=== PATIENT | female | born 1985 | race Caucasian/White ===

== ENCOUNTER 2017-10-02 08:12 | Inpatient (IN) ==
[2017-10-02] MEDS ORDERED: Isovue-370 500 ML INFUS..BTL IV ONE (08:15)
[2017-10-02] MEDS ORDERED: *HR* FentaNYL (PF) 100 MCG/2 ML VIAL IVP ONE ×2 (08:18→10:22)
--- NOTE | 2017-10-02 08:18 | Emergency Department Note ---
Disposition Clinical Impression: IVDU (intravenous drug user), Septic embolism Cellulitis Qualifiers: Site of cellulitis: extremity Site of cellulitis of extremity: upper extremity Laterality: right Qualified Code(s): L03.113 - Cellulitis of right upper limb Disposition: Admitted As Inpatient Condition: Fair Time of Disposition: 11:29 General Adult HPI - General Chief complaint: ED Extremity Problem,Nontraumatic Stated complaint: Right Hand infection Time Seen by Provider: 10/02/17 08:14 - Related Data Home Medications Medication Instructions Recorded Confirmed ALPRAZolam [Xanax 1 MG Tablet] 1 mg PO QID 10/02/17 10/02/17 Gabapentin [Neurontin] 800 mg PO QID 10/02/17 10/02/17 Naproxen Sodium [Aleve] 220 mg PO DAILY PRN 10/02/17 10/02/17 Quetiapine Fumarate [SEROquel] 100 mg PO HS 10/02/17 10/02/17 Tizanidine HCl 2 mg PO TID 10/02/17 10/02/17 Allergies Allergy/AdvReac Type Severity Reaction Status Date / Time Cefaclor [From [facility]] Allergy Hives Verified 10/02/17 08:52 Past Medical History - Past Medical History Medical history: Reports: hepatitis, migraine Surgical history: Reports: non-contributory Psychiatric history: Reports: no psych history CORROSION CONTROL SPECIALIST history: Reports: no CORROSION CONTROL SPECIALIST history - Social History Smoking Status: Current every day smoker Smokeless Tobacco Status: No Alcohol use: Reports: none Drug use: Reports: marijuana Course Vital Signs Temperature 98.1 F 10/02/17 08:14 Pulse Rate 137 10/02/17 08:14 Respiratory Rate 18 10/02/17 08:14 Blood Pressure 130/89 10/02/17 08:14 O2 Sat by Pulse Oximetry 97 10/02/17 08:14 Temperature 98.1 F 10/02/17 08:14 Pulse Rate 137 10/02/17 08:14 Respiratory Rate 18 10/02/17 08:14 Blood Pressure 130/89 10/02/17 08:14 O2 Sat by Pulse Oximetry 97 10/02/17 08:14 Oxygen Delivery Oxygen Delivery Room Air Medical Decision Making - Lab Data Lab results reviewed: Yes I reviewed the patient's lab results. Result diagrams: 10/02/17 09:31 10/02/17 08:14 Lab Results 10/02/17 10/02/17 10/02/17 Range/Units 08:14 08:15 08:41 WBC (4.3-11.1) K/mcL RBC (3.82-4.97) M/mcL Hgb (11.5-15.4) g/dL Hct (35.3-44.9) % MCV (83.0-100.0) fL MCH (28.0-33.3) pg MCHC (31.6-35.5) g/dL RDW (11.5-14.5) % Plt Count (140-400) K/mcL MPV (9.4-12.4) fL Immature Gran % (0-4) % Seg Neutrophils % % Lymphocytes % % Monocytes % % Eosinophils % % Basophils % % Neutrophils # (1.6-8.9) K/mcL Lymphocytes # (0.6-4.6) K/mcL Monocytes # (0.0-1.3) K/mcL Eosinophils # (0.0-0.6) K/mcL Basophils # (0.0-0.2) K/mcL PT (9.4-12.1) Seconds INR Sodium 132 L (136-145) mEq/L Potassium 4.1 (3.5-5.1) mEq/L Chloride 102 (98-107) mEq/L Carbon Dioxide 19 L (23-29) mEq/L BUN 11 (6-20) mg/dL Creatinine 0.56 L (0.60-1.20) mg/dL Est GFR ( Amer) > 60 (> 60) Est GFR (Non-Af Amer) > 60 (> 60) BUN/Creatinine Ratio 20 (6-26) Glucose 115 H (70-105) mg/dL Calculated Osmolality 274 L (280-300) Lactic Acid 2.4 H (0.5-2.2) mmol/L Calcium 9.4 (8.6-10.3) mg/dL Total Bilirubin 1.1 H (0.3-1.0) mg/dL AST 22 (13-39) Units/L ALT 38 (7-52) Units/L Alkaline Phosphatase 78 (34-104) Units/L Serum Total Protein 7.2 (6.4-8.9) g/dL Albumin 3.5 (3.5-5.7) g/dL Globulin 3.7 H (2.4-3.5) g/dL Albumin/Globulin Ratio 0.9 L (1.1-2.2) Serum , Qual Negative (Negative) Specimen Rejected 10/02/17 10/02/17 10/02/17 Range/Units 08:41 08:41 09:31 WBC 18.7 H (4.3-11.1) K/mcL RBC 4.47 (3.82-4.97) M/mcL Hgb 12.8 (11.5-15.4) g/dL Hct 36.2 (35.3-44.9) % MCV 81.0 L (83.0-100.0) fL MCH 28.6 (28.0-33.3) pg MCHC 35.4 (31.6-35.5) g/dL RDW 14.6 H (11.5-14.5) % Plt Count 184 (140-400) K/mcL MPV 10.2 (9.4-12.4) fL Immature Gran % 2.6 (0-4) % Seg Neutrophils % 86.1 % Lymphocytes % 4.6 % Monocytes % 6.4 % Eosinophils % 0.1 % Basophils % 0.2 % Neutrophils # 16.1 H (1.6-8.9) K/mcL Lymphocytes # 0.9 (0.6-4.6) K/mcL Monocytes # 1.2 (0.0-1.3) K/mcL Eosinophils # 0.0 (0.0-0.6) K/mcL Basophils # 0.0 (0.0-0.2) K/mcL PT 16.6 H (9.4-12.1) Seconds INR 1.5 Sodium (136-145) mEq/L Potassium (3.5-5.1) mEq/L Chloride (98-107) mEq/L Carbon Dioxide (23-29) mEq/L BUN (6-20) mg/dL Creatinine (0.60-1.20) mg/dL Est GFR ( Amer) (> 60) Est GFR (Non-Af Amer) (> 60) BUN/Creatinine Ratio (6-26) Glucose (70-105) mg/dL Calculated Osmolality (280-300) Lactic Acid (0.5-2.2) mmol/L Calcium (8.6-10.3) mg/dL Total Bilirubin (0.3-1.0) mg/dL AST (13-39) Units/L ALT (7-52) Units/L Alkaline Phosphatase (34-104) Units/L Serum Total Protein (6.4-8.9) g/dL Albumin (3.5-5.7) g/dL Globulin (2.4-3.5) g/dL Albumin/Globulin Ratio (1.1-2.2) Serum , Qual (Negative) Specimen Rejected Clotted - Radiology Data Radiology results reviewed: Yes I reviewed the patient's radiology results. Critical Care Time Critical Care Time: Yes Total Critical Care Time: 30 Attestation: The high probability of a clinically significant, sudden or life threatening deterioration of the [] system(s) required my full and direct attention, intervention and personal management. The aggregate critical care time was [] minutes. This time is in addition to time spent performing reported procedures but includes the following: [] Data Review and interpretation [] Patient assessment and monitoring of vital signs [] Documentation [] Medication orders and management Attestation Statement - Attestation Attestation: For this encounter, I have reviewed the DOG CATCHER or PA documentation, treatment plan, and medical decision making; and I have had face to face time with this patient. [id number] time provided Patient presents by EMS. She has evidence of cellulitis to her right hand secondary to IV drug use. She is anxious and tachycardic. She complains of chest pain and shortness of breath since last night. She also complains of low back pain which is both acute and chronic. Right hand x-ray, CT chest, MRI lumbar spine ordered. 11:27: Patient has septic emboli. We will admit 11:30: Dr. Weathers, hospitalist, recommends urine drug screen, serum alcohol level , infectious disease consult. I did discuss this case with who is agreeable to evaluate patient
--- NOTE | 2017-10-02 08:22 | Emergency Department Note ---
Disposition Clinical Impression: Cellulitis Qualifiers: Site of cellulitis: extremity Site of cellulitis of extremity: upper extremity Laterality: right Qualified Code(s): L03.113 - Cellulitis of right upper limb Disposition: Still a Patient Condition: Undetermined Referrals: NONE,PCP [Primary Care Provider] - Forms: ED Satisfaction Letter Time of Disposition: 10:53 General Adult HPI - General Chief complaint: ED Extremity Problem,Nontraumatic Stated complaint: Right Hand infection Time Seen by Provider: 10/02/17 08:14 Source: patient, EMS Limitations: no limitations Nursing Notes Reviewed: Yes Vital Signs Reviewed: Yes - History of Present Illness HPI Narrative: 32-year-old female presents by EMS for evaluation of worsening right hand cellulitis for the past 3 days. She admits to being a frequent heroin user and states that she injects in the dorsum of the right hand. She also complains of worsening diffuse chest pain since last night, shortness of breath, and worsening low back pain. She denies any other recreational drug use aside from the occasional methamphetamine usage however states that the last time she used methamphetamine was 2 weeks ago. Onset (ago): day(s) (3) Location: chest, back, right, upper extremity Pain Scale: 10 Quality: sharp Consistency: Worsening Improves with: nothing Worsens with: other (Deep breathing) Treatments Prior to Arrival: none - Related Data Home Medications Medication Instructions Recorded Confirmed ALPRAZolam [Xanax 1 MG Tablet] 1 mg PO QID 10/02/17 10/02/17 Gabapentin [Neurontin] 800 mg PO QID 10/02/17 10/02/17 Naproxen Sodium [Aleve] 220 mg PO DAILY PRN 10/02/17 10/02/17 Quetiapine Fumarate [SEROquel] 100 mg PO HS 10/02/17 10/02/17 Tizanidine HCl 2 mg PO TID 10/02/17 10/02/17 Allergies Allergy/AdvReac Type Severity Reaction Status Date / Time [facility] [From [facility]] Allergy Hives Verified 10/02/17 08:52 All systems ED: reviewed and negative except as stated. Constitutional: Denies: fever, chills, weakness, weight change Eyes: Denies: eye pain, eye discharge, vision change ENT ED: Denies: ear pain, throat pain, dental pain, hearing loss, epistaxis, congestion, dysphagia Cardiovascular: Reports: chest pain. Denies: palpitations, dyspnea on exertion , edema, syncope Respiratory: Reports: as per HPI, dyspnea. Denies: cough, wheezes, hemoptysis, stridor Gastrointestinal: Denies: abdominal pain, nausea, vomiting, diarrhea, constipation, hematemesis, melena, hematochezia Genitourinary: Denies: dysuria, frequency, hematuria, discharge Musculoskeletal: Reports: as per HPI, back pain, other (Right hand pain, redness , swelling). Denies: neck pain, arthralgia, myalgia Integumentary: Denies: rash, abrasion, lesions Neurological: Denies: headache, weakness, numbness, paresthesias, confusion, abnormal gait, vertigo Psychiatric: Denies: anxiety, depression, suicidal thoughts, homicidal thoughts , auditory hallucinations, visual hallucinations Endocrine: Denies: fatigue Hematological/Lymphatic: Denies: easy bleeding, easy bruising Allergic/Immunologic: Denies: facial swelling, urticaria Past Medical History - Past Medical History Attestation: Yes The following information was validated with the patient. Source: patient, nursing notes reviewed Medical history: Reports: hepatitis, migraine Surgical history: Reports: non-contributory Psychiatric history: Reports: no psych history SILO WORKER history: Reports: no SILO WORKER history - Social History Smoking Status: Current every day smoker Smokeless Tobacco Status: No Alcohol use: Reports: none Drug use: Reports: marijuana Physical Exam - General Limitations: no limitations General appearance: alert, in no apparent distress - Head Head exam: atraumatic, normocephalic, normal inspection - Eye Eye exam: Present: normal appearance, PERRL, EOMI. Absent: nystagmus - ENT ENT exam: mucous membranes moist - Neck Neck exam: Present: normal inspection, full ROM, trachea midline - Chest Chest inspection: Present: normal inspection, symmetric chest wall rise - Respiratory Respiratory exam: Present: normal lung sounds bilaterally, other (Tachypnea). Absent: respiratory distress, wheezes, stridor, accessory muscle use, prolonged expiratory phase - Cardiovascular Cardiovascular exam: Present: normal rhythm, tachycardia - Abdominal Exam Abdominal exam: Present: soft, Non-Tender, normal bowel sounds - Expanded Upper Extremity Exam Arm exam: Present: normal inspection, full ROM Elbow exam: Present: normal inspection, full ROM Forearm/Wrist exam: Present: normal inspection, full ROM Hand exam: Present: tenderness, swelling (Moderate edema noted right hand diffusely), erythema (Dorsum of right hand several areas induration without substantial fluctuance.), other (Track corley noted to the dorsal aspect of the right hand). Absent: abrasion, laceration, ecchymosis, deformity Neuromotor exam: Normal: wrist extension, thumb opposition, fingers 2-5 abduction Neurosensory exam: Normal: radial nerve, ulnar nerve, 2-point discrimination Hand tendon exam: Normal: flexor digitorum profundus (location), extensor tendon (location) Vascular exam: Normal: capillary refill, radial pulse, ulnar pulse - Back Exam Back exam: Present: tenderness, vertebral tenderness (Lumbar spine). Absent: full ROM (Range of motion limited by pain, lumbar spine) - Neurological Exam Neurological exam: Present: alert, oriented X3 - Psychiatric Psychiatric exam: Present: normal affect, normal mood - Skin Skin exam: Present: warm, dry, intact Course Vital Signs Temperature 98.1 F 10/02/17 08:14 Pulse Rate 137 10/02/17 08:14 Respiratory Rate 18 10/02/17 08:14 Blood Pressure 130/89 10/02/17 08:14 O2 Sat by Pulse Oximetry 97 10/02/17 08:14 Temperature 98.1 F 10/02/17 08:14 Pulse Rate 137 10/02/17 08:14 Respiratory Rate 18 10/02/17 08:14 Blood Pressure 130/89 10/02/17 08:14 O2 Sat by Pulse Oximetry 97 10/02/17 08:14 Oxygen Delivery Oxygen Delivery Room Air Medical Decision Making - Medical Records Medical records reviewed: Yes I reviewed the patient's medical records. - Lab Data Lab results reviewed: Yes I reviewed the patient's lab results. Result diagrams: 10/02/17 09:31 10/02/17 08:14 Lab Results 10/02/17 10/02/17 10/02/17 Range/Units 08:14 08:15 08:41 WBC (4.3-11.1) K/mcL RBC (3.82-4.97) M/mcL Hgb (11.5-15.4) g/dL Hct (35.3-44.9) % MCV (83.0-100.0) fL MCH (28.0-33.3) pg MCHC (31.6-35.5) g/dL RDW (11.5-14.5) % Plt Count (140-400) K/mcL MPV (9.4-12.4) fL Immature Gran % (0-4) % Seg Neutrophils % % Lymphocytes % % Monocytes % % Eosinophils % % Basophils % % Neutrophils # (1.6-8.9) K/mcL Lymphocytes # (0.6-4.6) K/mcL Monocytes # (0.0-1.3) K/mcL Eosinophils # (0.0-0.6) K/mcL Basophils # (0.0-0.2) K/mcL PT (9.4-12.1) Seconds INR Sodium 132 L (136-145) mEq/L Potassium 4.1 (3.5-5.1) mEq/L Chloride 102 (98-107) mEq/L Carbon Dioxide 19 L (23-29) mEq/L BUN 11 (6-20) mg/dL Creatinine 0.56 L (0.60-1.20) mg/dL Est GFR ( Amer) > 60 (> 60) Est GFR (Non-Af Amer) > 60 (> 60) BUN/Creatinine Ratio 20 (6-26) Glucose 115 H (70-105) mg/dL Calculated Osmolality 274 L (280-300) Lactic Acid 2.4 H (0.5-2.2) mmol/L Calcium 9.4 (8.6-10.3) mg/dL Total Bilirubin 1.1 H (0.3-1.0) mg/dL AST 22 (13-39) Units/L ALT 38 (7-52) Units/L Alkaline Phosphatase 78 (34-104) Units/L Serum Total Protein 7.2 (6.4-8.9) g/dL Albumin 3.5 (3.5-5.7) g/dL Globulin 3.7 H (2.4-3.5) g/dL Albumin/Globulin Ratio 0.9 L (1.1-2.2) Serum , Qual Negative (Negative) Specimen Rejected 10/02/17 10/02/17 10/02/17 Range/Units 08:41 08:41 09:31 WBC 18.7 H (4.3-11.1) K/mcL RBC 4.47 (3.82-4.97) M/mcL Hgb 12.8 (11.5-15.4) g/dL Hct 36.2 (35.3-44.9) % MCV 81.0 L (83.0-100.0) fL MCH 28.6 (28.0-33.3) pg MCHC 35.4 (31.6-35.5) g/dL RDW 14.6 H (11.5-14.5) % Plt Count 184 (140-400) K/mcL MPV 10.2 (9.4-12.4) fL Immature Gran % 2.6 (0-4) % Seg Neutrophils % 86.1 % Lymphocytes % 4.6 % Monocytes % 6.4 % Eosinophils % 0.1 % Basophils % 0.2 % Neutrophils # 16.1 H (1.6-8.9) K/mcL Lymphocytes # 0.9 (0.6-4.6) K/mcL Monocytes # 1.2 (0.0-1.3) K/mcL Eosinophils # 0.0 (0.0-0.6) K/mcL Basophils # 0.0 (0.0-0.2) K/mcL PT 16.6 H (9.4-12.1) Seconds INR 1.5 Sodium (136-145) mEq/L Potassium (3.5-5.1) mEq/L Chloride (98-107) mEq/L Carbon Dioxide (23-29) mEq/L BUN (6-20) mg/dL Creatinine (0.60-1.20) mg/dL Est GFR ( Amer) (> 60) Est GFR (Non-Af Amer) (> 60) BUN/Creatinine Ratio (6-26) Glucose (70-105) mg/dL Calculated Osmolality (280-300) Lactic Acid (0.5-2.2) mmol/L Calcium (8.6-10.3) mg/dL Total Bilirubin (0.3-1.0) mg/dL AST (13-39) Units/L ALT (7-52) Units/L Alkaline Phosphatase (34-104) Units/L Serum Total Protein (6.4-8.9) g/dL Albumin (3.5-5.7) g/dL Globulin (2.4-3.5) g/dL Albumin/Globulin Ratio (1.1-2.2) Serum , Qual (Negative) Specimen Rejected Clotted - Radiology Data Radiology results reviewed: Yes I reviewed the patient's radiology results. - EKG Data EKG #1 EKG attestation: Yes I reviewed and interpreted this EKG. EKG results narrative: EKG reviewed by Dr. Acevedo. EKG shows a sinus tachycardia with short LA interval. Ventricular rate 134, QRS duration 93, LA interval 116, QT/QTc interval 331/410. No ectopy noted. No STEMI. S.B.ACorby. - S.Siva.Dudley Situation: Demographics, MOA Background: Presenting Complaint, Relevant PMH, Meds, & Allergies Assessment: Vital Signs, Course and respsone to treatment, Exam Concerns, Patient/Family Expectation, Pertinant Lab Results, Outstanding Labs Recommendation: Barrier(s) to disposition, Recommendation based on pending studies, treatments, or consults S.B.A.Koko Report Given to: Dr. Curtis Heath Repor Time: 10:53
[2017-10-02 09:05] LABS: INR 1.5; Prothrombin Time 16.6 Seconds (9.4-12.1)
[2017-10-02] MEDS: *HR* LORazepam 2 MG/ML VIAL IVP ONE ×2 (09:06→13:16)
[2017-10-02 09:12] LABS: Alanine Aminotransferase 38 Units/L (7-52); Albumin 3.5 g/dL (3.5-5.7); Albumin/Globulin Ratio 0.9 (1.1-2.2); Alkaline Phosphatase 78 Units/L (34-104); Aspartate Amino Transferase 22 Units/L (13-39); BUN/Creatinine Ratio 20 (6-26); Bilirubin,Total 1.1 mg/dL (0.3-1.0); Blood Urea Nitrogen 11 mg/dL (6-20); Calcium 9.4 mg/dL (8.6-10.3); Carbon Dioxide 19 mEq/L (23-29); Chloride 102 mEq/L (98-107); Globulin 3.7 g/dL (2.4-3.5); Glucose 115 mg/dL (70-105); Osmolality,Calculated 274 (280-300); Potassium 4.1 mEq/L (3.5-5.1); Sodium 132 mEq/L (136-145); Total Protein 7.2 g/dL (6.4-8.9); eGFR For African Americans > 60 (> 60); eGFR For Non-African Americans > 60 (> 60)
[2017-10-02 09:41] LABS: Basophils % 0.2 %; Eosinophils % 0.1 %; Hematocrit 36.2 % (35.3-44.9); Hemoglobin 12.8 g/dL (11.5-15.4); Immature Granulocytes % 2.6 % (0-4); Lymphocytes # 0.9 K/mcL (0.6-4.6); Lymphocytes % 4.6 %; Mean Corpuscular HGB Conc 35.4 g/dL (31.6-35.5); Mean Corpuscular Hemoglobin 28.6 pg (28.0-33.3); Mean Platelet Volume 10.2 fL (9.4-12.4); Monocytes # 1.2 K/mcL (0.0-1.3); Monocytes % 6.4 %; Neutrophils # 16.1 K/mcL (1.6-8.9); Platelet Count 184 K/mcL (140-400); Red Blood Count 4.47 M/mcL (3.82-4.97); Red Cell Distribution Width 14.6 % (11.5-14.5); Segmented Neutrophils % 86.1 %
[2017-10-02] MEDS ORDERED: *HR* FentaNYL (PF) 100 MCG/2 ML VIAL ONE (10:24)
[2017-10-02] MEDS: 0.9 % Sodium Chloride 1,000 ML IVC SCH ×4 (10:30→14:25)
[2017-10-02] MEDS ORDERED: *HR* LORazepam 2 MG/ML VIAL IVP ONE (10:53)
[2017-10-02] MEDS ORDERED: *HR* LORazepam 2 MG/ML VIAL ONE (10:55)
[2017-10-02] MEDS ORDERED: Levofloxacin 500 MG/100 ML 500 MG/100 ML BAG IVPB ONE (11:32)
[2017-10-02 12:02] LABS: Ethanol < 10 mg/dL (Less than 10)
--- NOTE | 2017-10-02 12:44 | Internal Med History&Physical ---
<Dionna Prather - Last Filed: 10/02/17 14:17> Date of Encounter: 10/02/17 Time of Encounter: 12:34 Internal Medicine - H&P: HPI Chief complaint: Right hand cellulitis Admitted From: Home Plans for Post Hospital Care: Transfer Inp Rehab Fac (Patient indicated that she has information regarding a rehab facility) History of present illness: Ms. Vargas is a 32 year old female who has hx of IVD use. She indicated that she is a iv heroin user and uses daily. She denied alcohol use and the She noticed that her hand was swelling about 3 days ago but continued to use . She states the pain became unbearable so she came in. Right hand noted to be severely edematous with erythema and very tight. She is currently afebrile, however she has a wbc of 18.7 and a lactacte of 2.4. The ED determined the patient to have septic emboli. A CT scan showed no pulmonary embolus. Infection disease consulted in the ED and will see the patient. EKG showed ST with a short NM interval, the rate was 134. Hand xray showed. Spoke with cardiology and recommended the patient have a TTE to look for vegetation, concern is endocarditis d/t IVDU. No heparin drip will be ordered at this time. Cardiology will not follow at this time. Past Med Surg Social Fam HX - Past Medical History Medical history: hepatitis, migraine Psychiatric history: no psych history - Past Surgical History Surgical History: non-contributory - Social History Smoking Status: Current every day smoker Smokeless Tobacco Status: No Alcohol use: none Drug use: marijuana Internal Medicine - H&P: Meds ALPRAZolam [Xanax 1 MG Tablet] 1 mg PO QID 10/02/17 [History] Gabapentin [Neurontin] 800 mg PO QID 10/02/17 [History] Naproxen Sodium [Aleve] 220 mg PO DAILY PRN 10/02/17 [History] Quetiapine Fumarate [SEROquel] 100 mg PO HS 10/02/17 [History] Tizanidine HCl 2 mg PO TID 10/02/17 [History] 3 Allergy/AdvReac Type Severity Reaction Status Date / Time Cefaclor [From [facility]] Allergy Hives Verified 10/02/17 08:52 All Systems PM: A 10-system review of systems was performed and is negative for pertinent findings except as documented above in the HPI. - Constitutional Constitutional: no chills, no fever(s), no night sweats - EENT Eyes: no change in vision, no discharge, no pain, no photophobia Ears: no ear discharge, no ear pain, no tinnitus Nose, mouth and throat: no dysphagia, no nasal discharge, no neck pain, no sore throat - Cardiovascular Cardiovascular ROS IM: no chest pain, no diaphoresis, no dyspnea, no lightheadedness, no palpitations, no syncope - Respiratory Respiratory: no cough, no dyspnea, no wheezing, no excessive phlegm production - Gastrointestinal Gastrointestinal: no abdominal pain, no diarrhea, no hematemesis, no hematochezia, no melena, no nausea, no vomiting - Genitourinary Genitourinary: no change in urinary stream, no dysuria, no flank pain, no hematuria - Musculoskeletal Musculoskeletal ROS IM: no numbness, no tingling - Integumentary Integumentary IM: erythema (Right hand with erythema and edema), new lesions, unusual bruising (Ther patient is a IVDU, she has multiple bruised areas to skin areas to ), no rash - Neurological Neurological ROS: no confusion, no convulsions, no focal weakness, no numbness, no tingling, no tremor(s) - Hematologic/Lymphatic Hematologic/Lymphatic: no easy bruising - Constitutional Vitals: Temp Pulse Resp BP Pulse Ox 97.7 F 142 16 123/81 99 10/02/17 12:04 10/02/17 12:04 10/02/17 12:04 10/02/17 12:04 10/02/17 12:04 General appearance: Present: A&O X 3 - Head Head exam: Present: atraumatic, normocephalic - Eye Eye exam: Present: PERRL, conjuntiva pink, sclera anicteric Pupils: Present: PERRL - Neck Neck exam general surgery: Present: supple, trachea midline. Absent: lymphadenopathy - Respiratory Respiratory exam: Present: CTAB. Absent: accessory muscle use, rales, rhonchi, wheezes - Cardiovascular Cardiovascular exam: Present: +S1, +S2, tachycardia. Absent: diastolic murmur, gallop, rubs, systolic murmur - GI/Abdominal GI/Abdominal exam: Present: normal bowel sounds, soft, no peritoneal signs. Absent: distended, tenderness - Extremities Exam Extremities exam: Present: tenderness (Right hand with erythema and edema), warm , radial pulses palpable and symmetrical. Absent: calf tenderness, cyanotic, pedal edema - Neurological Exam Neurological exam: Present: CN II-XII intact, oriented X3, no focal deficits. Absent: pronater drift, facial droop, speech deficit - Skin Skin exam: Present: dry, intact Internal Med - H&P Results - Labs CBC & Chem 7: 10/02/17 09:31 10/02/17 08:14 - Assessment and plan (1) Septic embolism Current Visit: Yes Status: Acute Assessment and plan: The patient will be seen by ID and surgery for septic emboli and ?compartment syndrome. (2) Cellulitis Current Visit: Yes Status: Acute Assessment and plan: Right hand cellulitis. Vancomycin and levaquin started in the ED. Further antibiotic therapy will be initiated by ID. Qualifiers: Site of cellulitis: extremity Site of cellulitis of extremity: upper extremity Laterality: right Qualified Code(s): L03.113 - Cellulitis of right upper limb (3) Leukocytosis Current Visit: Yes Status: Acute Assessment and plan: The wbc count was 18.7, lactic acid is 2.4. Apparent source of infection is cellulitis right hand. ID on case and treating with vancomycin and levaquin. Qualifiers: Leukocytosis type: unspecified Qualified Code(s): D72.829 - Elevated white blood cell count, unspecified (4) IVDU (intravenous drug user) Current Visit: Yes Status: Acute Assessment and plan: The patient has 10 year hx of daily heroin use. She indicated that she has tried to get into a drug rehab in the past but was not able to go. Social service talked with the patient in the ED. - Time Spent With Patient Total time spent is greater than 50% in coordination of care (as documented) at patient's floor/unit and/or counseling patient: 25 - 35 minutes <Rowena Weathers - Last Filed: 10/02/17 14:40> Date of Encounter: 10/02/17 Internal Medicine - H&P: HPI History of present illness: Ms. Vargas is a 32 year old female Past Med Surg Social Fam HX - Family History Mother History Unknown: Yes Father History Unknown: Yes All Systems PM: A 10-system review of systems was performed and is negative for pertinent findings except as documented above in the HPI. - Constitutional Vitals: Temp Pulse Resp BP Pulse Ox 97.7 F 142 16 123/81 99 10/02/17 12:04 10/02/17 12:04 10/02/17 12:04 10/02/17 12:04 10/02/17 12:04 Internal Med - H&P Results - Labs CBC & Chem 7: 10/02/17 09:31 10/02/17 08:14 - Attending Attestation Examined the patient and review of the note. Patient is in sepsis most likely due to hand cellulitis with questionable compartment syndrome due to IV drug abuse. Concern of septic emboli therefore ID consulted for further management. Hand surgeon was also consulted. Continue pain management with IV fentanyl, Percocet, and NSAIDs. Consider dye range tender's consultation if needed. Vitals are stable at this time. - Time Spent With Patient Total time spent is greater than 50% in coordination of care (as documented) at patient's floor/unit and/or counseling patient:
--- NOTE | 2017-10-02 12:49 | Infectious Disease Consult ---
Date of Encounter: 10/02/17 Time of Encounter: 12:49 Assessment and Plan (1) Severe sepsis Status: Acute Assessment and plan: Secondary to cellulitis and likely bacteremia with septic emboli (2) Cellulitis Status: Acute Assessment and plan: Concern for possible septic arthritis versus necrotizing fasciitis. Repeat blood cultures 2 stat. Consult orthopedics: Have been consulted by the primary team and Dr. Salinas is aware of the patient Start vancomycin, levofloxacin and clindamycin for now Await orthopedic recommendation to see if the patient needs I&D Qualifiers: Site of cellulitis: extremity Site of cellulitis of extremity: upper extremity Laterality: right Qualified Code(s): L03.113 - Cellulitis of right upper limb (3) Septic embolism Status: Acute Assessment and plan: check RIP, urine legionella and pneumococcal antigen check PPD agree with vancomycin and levofloxacin for now (4) IVDU (intravenous drug user) Status: Acute Assessment and plan: check HIV status (5) Hepatitis C Status: Acute Assessment and plan: MELD score 11 Qualifiers: Viral hepatitis chronicity: chronic Hepatic coma status: without hepatic coma Qualified Code(s): B18.2 - Chronic viral hepatitis C Infectious Disease HPI - Data of Consult Patient: new to practice Consult date: 10/02/17 Requesting Physician: Rowena Weathers Primary Care Provider: PCP NONE - Consult Narrative Reason for consult: severe sepsis and septic emboli History of present illness: Ms. Vargas is a 32 year old female with past medical history mentioned below including hepatitis C that has not been treated, also has history of IV drug use states that about 2-3 days prior to admission she was having erythema, edema and pain in the right hand and wrist. Patient was also having fevers and chills. Patient tells me that she did IV drugs in the hand a few days ago. Since admission patient has been afebrile, tachycardic and with WBC of 18.7 thousand with 86% neutrophils. Rest of the labs reveal a PT of 16.6, INR of 1.5. Kidney function seems to be okay and patient has lactic acidosis with lactic acid of 2.[address] of the chest reveals pulmonary nodule and multiple lymph nodes are enlarged. X-ray of the hand reveals generalized soft tissue swelling involving the dorsum of the hand without acute osseous abnormality. A lumbar MRI was normal. Patient had blood cultures obtained, drug screen, urinalysis with urine culture, given levofloxacin and vancomycin and we were consulted for further recommendations. CC: Rowena Weathers Past Med Surg Social Fam HX - Past Medical History Medical history: hepatitis, migraine Psychiatric history: no psych history - Past Surgical History Surgical History: non-contributory - Social History Smoking Status: Current every day smoker Smokeless Tobacco Status: No Alcohol use: none Drug use: marijuana - Family History Mother History Unknown: Yes Father History Unknown: Yes Infectious Disease-CN:Meds ALPRAZolam [Xanax 1 MG Tablet] 1 mg PO QID 10/02/17 [History] Gabapentin [Neurontin] 800 mg PO QID 10/02/17 [History] Naproxen Sodium [Aleve] 220 mg PO DAILY PRN 10/02/17 [History] Quetiapine Fumarate [SEROquel] 100 mg PO HS 10/02/17 [History] Tizanidine HCl 2 mg PO TID 10/02/17 [History] 3 Allergy/AdvReac Type Severity Reaction Status Date / Time [facility] Allergy Hives Verified 10/02/17 08:52 Review of systems: Patient denies any headache or neck stiffness. Patient denies any sinus pressure. She does have the pleuritic chest pain. Lumbar back pain. Severe hand pain. No urinary symptoms no other concerns. Exam - Constitutional Vitals: Temp Pulse Resp BP Pulse Ox 97.7 F 142 16 123/81 99 10/02/17 12:04 10/02/17 12:04 10/02/17 12:04 10/02/17 12:04 10/02/17 12:04 General appearance: febrile, disheveled, mild distress - Head Head exam: Present: atraumatic, normocephalic - Eye Eye exam: Present: EOMI, sclera anicteric Additional comments: No conjunctival hemorrhage - ENT ENT exam: Present: mucous membranes dry Additional comments: No oral lesions - Neck Neck exam: Present: full ROM. Absent: meningismus - Respiratory Respiratory exam: Present: CTAB, wheezes. Absent: accessory muscle use, chest wall tenderness, stridor - Cardiovascular Cardiovascular exam: Present: RRR, +S1, +S2, tachycardia Additional comments: I did not appreciate any murmur - GI/Abdominal GI/Abdominal exam: Present: normal bowel sounds, soft. Absent: tenderness - Extremities Exam Additional comments: Right hand swollen and right wrist. Very limited motion. Extremely tender to touch. Very hard. Significant erythema and edema. - Neurological Exam Neurological exam: Present: alert, oriented X3. Absent: speech deficit - Psychiatric Psychiatric exam: Present: agitated, anxious - Skin Skin exam: Present: normal color Additional comments: Multiple scars. No endocarditis stigmata Infectious Disease CN: Results - Labs CBC & Chem 7: 10/02/17 09:31 10/02/17 08:14 Consult Discharge Plan - Plan Referrals: NONE,PCP [Primary Care Provider] -
[2017-10-02] MEDS: *HR* Morphine 2 MG/ML SYRINGE IVP PRN (13:10)
[2017-10-02] MEDS: ALPRAZolam 1 MG TABLET PO SCH ×2 (13:12→16:26)
[2017-10-02] MEDS: Gabapentin 400 MG CAPSULE PO SCH ×3 (13:12→23:30)
[2017-10-02] MEDS ORDERED: Tuberculin Skin Test (PPD) 5 TUB/0.1 ML VIAL ID ONE (14:08)
[2017-10-02] MEDS ORDERED: 0.9 % Sodium Chloride 1,000 ML IVC SCH (14:30)
[2017-10-02] MEDS ORDERED: 0.9 % Sodium Chloride 1,000 ML ONE (14:32)
[2017-10-02] MEDS: tiZANidine 4 MG TABLET PO SCH ×2 (14:44→23:30)
[2017-10-02] MEDS: Nicotine 21 MG PATCH.TD24 TD SCH (14:45)
[2017-10-02] MEDS: Levofloxacin 500 MG/100 ML 500 MG/100 ML BAG IVPB SCH (14:46)
[2017-10-02] MEDS: Clindamycin 900 MG/50 ML 900 MG/50 ML IV.SOLN IVPB SCH ×2 (16:10→23:59)
[2017-10-02 16:15] LABS: Bilirubin,Urine Negative (Negative); Blood,Urine Trace (Negative); Clarity,Urine Clear (Clear); Color,Urine Yellow (Yellow); Glucose,Urine (UA) Normal (Normal); Ketones,Urine Negative (Negative); Leukocyte Esterase,Urine Negative (Negative); Nitrite,Urine Negative (Negative); PH,Urine 5.5 pH Units (5.0-8.0); Protein,Urine Trace mg/dL (Neg-Trace); Specific Gravity,Urine > 1.030 (1.010-1.025); Urobilinogen,Urine Normal (Normal)
[2017-10-02 16:17] LABS: Bacteria,Urine None Seen per hpf (None-Few); Hyaline Casts,Urine None Seen per lpf (None-Few); RBC,Urine 0-3 per hpf (0-3); Squamous Epithelial Cell,Urine Many per lpf (None-Few)
[2017-10-02 16:23] LABS: Amphetamine Screen,Urine Negative ng/mL (Cutoff=1000); Barbiturate Screen,Urine Negative ng/mL (Cutoff=200); Benzodiazepines Screen,Urine Negative ng/mL (Cutoff=200); Cannabinoid Screen,Urine Positive ng/mL (Cutoff = 50); Cocaine Screen,Urine Negative ng/mL (Cutoff= 300); Opiate Screen,Urine Positive ng/mL (Cutoff=300); Phencyclidine Screen,Urine Negative ng/mL (Cutoff=25)
[2017-10-02 17:32] LABS: Adenovirus Not Detected (Not Detect); Bordetella Pertussis Not Detected (Not Detect); Chlamydophila pneumoniae Not Detected (Not Detect); Coronavirus 229E Not Detected (Not Detect); Coronavirus HKU1 Not Detected (Not Detect); Coronavirus NL63 Not Detected (Not Detect); Coronavirus OC43 Not Detected (Not Detect); Human Metapneumovirus Not Detected (Not Detect); Human Rhinovirus/Enterovirus Not Detected (Not Detect); Influenza A Subtype 2009 H1 Not Detected (Not Detect); Influenza A Untypeable Not Detected (Not Detect); Influenza B Not Detected (Not Detect); Mycoplasma pneumoniae Not Detected (Not Detect); Parainfluenza Virus 1 Not Detected (Not Detect); Parainfluenza Virus 2 Not Detected (Not Detect); Parainfluenza Virus 3 Not Detected (Not Detect); Parainfluenza Virus 4 Not Detected (Not Detect); Respiratory Syncytial Virus Not Detected (Not Detect)
[2017-10-02] MEDS: Naloxone 0.4 MG/ML INJ IVP PRN ×2 (18:23→20:49)
--- NOTE | 2017-10-02 18:26 | Orthopedic Consult Note ---
Date of Encounter: 10/02/17 Time of Encounter: 18:18 History of Present Illness Chief complaint: Right hand and arm pain and swelling HPI: Ms. Vargas is a 32 year old [id number] female admitted with several days of progressive right hand and arm pain and swelling. Patient is difficult to obtain a history from at this time, she appears to be under the influence of narcotic. With much discussion it appears that the patient had attempted to inject her left hand, she does have a history of daily hurling use. Patient states that she has gotten worse over the past several days. Apparently she has not had any shakes chills or fevers up until this point. As noted the patient is extremely difficult to obtain an adequate and accurate history at this time. I reviewed the patient's history and physical data at length and reviewed the infectious disease consultation. Pertinent orthopedic examination reveals markedly edematous right hand. There is edema and erythema in the forearm as well. Forearm compartments are soft. Upper arm appears to be less involved. There are some epitrochlear nodes and I suspect some axillary nodes on the right side. The right finger nails a branch and there is a normal capillary refill. Sensation appears to be intact in the fingers. Motion is extremely limited. I reviewed x-rays of the right hand. This does not identify any bony involvement. There is significant soft tissue swelling as is apparent clinically. No blood cell count is 18.7. Hemoglobin is 12.8. PT is 16.6 with a normal INR. Kidney function is intact. Lactic acid is elevated 2.4. Bilirubin is minimally elevated 1.1 with liver enzymes being normal. Urinalysis is only positive for some blood. Urine tox screen is positive for opiates and THC. I did review with report of a CT scan of the chest was consistent with multiple septic pulmonary emboli. Impression: 1. Right upper extremity cellulitis, possible abscess. 2. Sepsis , suspected bacteremia with secondary pulmonary complications. Right hand and arm probable etiology of infection. Recommendation: At this time I would not urgently take the patient to the operating room in light of her current septic state. I do not see an obvious abscess that needs to be draining nor evidence of an acute compartment syndrome. This would be more likely in the hand than in the forearm. I recommend MRI of the right hand to evaluate for any possible abscess or fluid collection that may be amenable to I&D. Would continue with intravenous antibiotics and supportive care. Will maintain strict nothing by mouth until it was clear that the patient does does or does not require surgical intervention. Thank you for allowing me to seen care for Ms. Vargas. Sincerely, Mayur Nuñez, Past Med Surg Social Fam HX - Past Medical History Medical history: hepatitis, migraine Psychiatric history: no psych history - Past Surgical History Surgical History: non-contributory - Social History Smoking Status: Current every day smoker Smokeless Tobacco Status: No Alcohol use: none Drug use: marijuana - Family History Mother History Unknown: Yes Father History Unknown: Yes Medications and Allergies ALPRAZolam [Xanax 1 MG Tablet] 1 mg PO QID 10/02/17 [History] Gabapentin [Neurontin] 800 mg PO QID 10/02/17 [History] Naproxen Sodium [Aleve] 220 mg PO DAILY PRN 10/02/17 [History] Quetiapine Fumarate [SEROquel] 100 mg PO HS 10/02/17 [History] Tizanidine HCl 2 mg PO TID 10/02/17 [History] 3 Allergy/AdvReac Type Severity Reaction Status Date / Time [facility] Allergy Hives Verified 10/02/17 08:52 All Systems Reviewed: The remainder of the systems were reviewed and are negative Physical Exam - Constitutional Vitals: Temp Pulse Resp BP Pulse Ox 100.2 F H 153 18 106/70 98 10/02/17 17:17 10/02/17 17:17 10/02/17 17:17 10/02/17 17:17 10/02/17 17:17 Results - Labs Result Diagrams: 10/02/17 09:31 10/02/17 08:14 Labs: Abnormal lab results WBC 18.7 K/mcL (4.3-11.1) H 10/02/17 09:31 MCV 81.0 fL (83.0-100.0) L 10/02/17 09:31 RDW 14.6 % (11.5-14.5) H 10/02/17 09:31 Neutrophils # 16.1 K/mcL (1.6-8.9) H 10/02/17 09:31 PT 16.6 Seconds (9.4-12.1) H 10/02/17 08:41 Sodium 132 mEq/L (136-145) L 10/02/17 08:14 Carbon Dioxide 19 mEq/L (23-29) L 10/02/17 08:14 Creatinine 0.56 mg/dL (0.60-1.20) L 10/02/17 08:14 Glucose 115 mg/dL (70-105) H 10/02/17 08:14 Calculated Osmolality 274 (280-300) L 10/02/17 08:14 Lactic Acid 2.4 mmol/L (0.5-2.2) H 10/02/17 08:41 Total Bilirubin 1.1 mg/dL (0.3-1.0) H 10/02/17 08:14 Globulin 3.7 g/dL (2.4-3.5) H 10/02/17 08:14 Albumin/Globulin Ratio 0.9 (1.1-2.2) L 10/02/17 08:14 Ur Specific [place] > 1.030 (1.010-1.025) H 10/02/17 16:01 Urine Blood Trace (Negative) H 10/02/17 16:01 Urine Microscopic WBC 5-15 per hpf (0-3) H 10/02/17 16:01 Ur Squamous Epith Cells Many per lpf (None-Few) H 10/02/17 16:01 Urine Opiates Screen Positive ng/mL (Abzqll=004) H 10/02/17 16:01 U Marijuana (THC) Screen Positive ng/mL (Cutoff = 50) H 10/02/17 16:01 All other labs normal. - Diagnostic results Wrist/Hand x-ray: image reviewed Consult Discharge Plan - Plan Referrals: NONE,PCP [Primary Care Provider] -
[2017-10-02] MEDS ORDERED: 0.9 % Sodium Chloride 1,000 ML IVC ONE (20:44)
[2017-10-02 20:51] LABS: ABG Base Excess -2 mEq/L (-2 to 3); ABG HCO3 21 mEq/L (21-27); ABG Oxygen Saturation 95 % (95-98); ABG PCO2 29 mmHg (35-45); ABG PH 7.46 pH Units (7.32-7.45); ABG PO2 72 mmHg (85-104); ABG TCO2 22 mEq/L (20-26)
--- NOTE | 2017-10-02 21:14 | Event Note ---
Date of Encounter: 10/02/17 Time of Encounter: 21:09 I was called to the patients room around 2024 due to patient unable to wake up. Significant other at the bedside. The patient apparently began to become drowsy while down for a MRI of her hand earlier. She appeared obtunded when I entered the room, with labored breathing and heart-rate in the 150's. She began waking for brief periods with tactile stimulus from boyfriend, but was still incoherent. She was narcan'd with little resolve, Ct of head ordered. Lactate was 3.0. IVF bolus given.
[2017-10-02] MEDS ORDERED: *HR* Metoprolol 5 MG/5 ML VIAL IVP ONE (21:45)
[2017-10-02 23:55] LABS: blaKPC Carbapenem-Resist Gene Not Detected (Not Detect)
[2017-10-02 23:56] LABS: Acinetobacter baumannii by PCR Not Detected (Not Detect); Enterococcus by PCR Not Detected (Not Detect); Escherichia coli by PCR Not Detected (Not Detect); Klebsiella oxytoca by PCR Not Detected (Not Detect); Klebsiella pneumoniae by PCR Not Detected (Not Detect); Pseudomonas aeruginosa by PCR Not Detected (Not Detect); Serratia marcescens by PCR Not Detected (Not Detect); Staphylococcus aureus by PCR ***DETECTED*** (Not Detect); Streptococcus agalactiae(B)PCR Not Detected (Not Detect); Streptococcus by PCR Not Detected (Not Detect); Streptococcus pneumoniae PCR Not Detected (Not Detect); Streptococcus pyogenes (A) PCR Not Detected (Not Detect); mecA Methicillin-Resist Gene ***DETECTED*** (Not Detect); vanA/B Vancomycin-Resist Genes Not Detected (Not Detect)
[2017-10-02 23:57] LABS: Candida albicans by PCR Not Detected (Not Detect); Candida glabrata by PCR Not Detected (Not Detect); Candida krusei by PCR Not Detected (Not Detect); Candida parapsilosis by PCR Not Detected (Not Detect); Candida tropicalis by PCR Not Detected (Not Detect)
[2017-10-03] MEDS: Piperacillin/Tazobactam 3.375 GM in 0.9 % Sodium Chloride Mini Bag 100 ML IVPB SCH ×2 (01:06→08:17)
[2017-10-03 04:11] LABS: Hematocrit 32.1 % (35.3-44.9); Mean Corpuscular HGB Conc 34.3 g/dL (31.6-35.5); Mean Corpuscular Hemoglobin 27.7 pg (28.0-33.3); Mean Corpuscular Volume 80.9 fL (83.0-100.0); Mean Platelet Volume 10.4 fL (9.4-12.4); Platelet Count 161 K/mcL (140-400); Red Blood Count 3.97 M/mcL (3.82-4.97); Red Cell Distribution Width 14.7 % (11.5-14.5)
[2017-10-03 04:33] LABS: BUN/Creatinine Ratio 20 (6-26); Blood Urea Nitrogen 12 mg/dL (6-20); Calcium 8.4 mg/dL (8.6-10.3); Carbon Dioxide 22 mEq/L (23-29); Chloride 107 mEq/L (98-107); Glucose 103 mg/dL (70-105); Osmolality,Calculated 282 (280-300); Potassium 3.6 mEq/L (3.5-5.1); Sodium 136 mEq/L (136-145); eGFR For African Americans > 60 (> 60); eGFR For Non-African Americans > 60 (> 60)
[2017-10-03 04:34] LABS: Troponin I < 0.03 ng/mL (< 0.04)
[2017-10-03 04:43] LABS: Lymphocytes # 2.2 K/mcL (0.6-4.6); Monocytes # 0.6 K/mcL (0.0-1.3); Neutrophils # 10.6 K/mcL (1.6-8.9); Platelet Estimate Normal (Normal)
[2017-10-03] MEDS: Ketorolac 30 MG/ML VIAL IVP PRN ×2 (05:53)
[2017-10-03] MEDS: *HR* Morphine 2 MG/ML SYRINGE IVP PRN ×3 (06:41→18:50)
[2017-10-03] MEDS: Nicotine 21 MG PATCH.TD24 TD SCH (08:16)
[2017-10-03] MEDS: tiZANidine 4 MG TABLET PO SCH ×3 (08:17→22:19)
[2017-10-03] MEDS: Gabapentin 400 MG CAPSULE PO SCH ×4 (08:17→22:18)
[2017-10-03] MEDS: Clindamycin 900 MG/50 ML 900 MG/50 ML IV.SOLN IVPB SCH ×3 (08:18→23:31)
--- NOTE | 2017-10-03 11:00 | Internal Med Progress Note ---
Date of Encounter: 10/03/17 Time of Encounter: 10:58 - Assessment and plan (1) Severe sepsis Current Visit: Yes Status: Acute Assessment and plan: In the setting of cellulitis to the right hand, bacteremia, septic emboli Afebrile, remains tachycardic, blood pressure stable mildly tachypneic and shallow respirations but 96% on room air. Lactic acid this morning 1.8, white blood cell count improving, vitals remain stable. Infectious disease and Dr. Nuñez on board and following IV ABX managed per ID patient is currently on clindamycin, Levaquin and Zosyn (2) Cellulitis Current Visit: Yes Status: Acute Assessment and plan: Secondary to IVDU Repeat blood cultures completed-growing MRSA Dr. Nuñez from orthopedics following. No fluid collection noted on MRI, swelling extending into right forearm however, pitting edema on and and positive for Refills Patient on clindamycin, Levaquin and Zosyn, continue these medications Supportive care with IV Toradol, and IV morphine Maintain extremity elevation Several small areas on the dorsum of the hand; draining. Continue current pain control measures Qualifiers: Site of cellulitis: extremity Site of cellulitis of extremity: upper extremity Laterality: right Qualified Code(s): L03.113 - Cellulitis of right upper limb (3) Septic embolism Current Visit: Yes Status: Suspected Assessment and plan: Check respiratory infection, Check urine Legionella and pneumococcal antigen, check PPD, continue antibiotics per infectious disease (4) Hepatitis C Current Visit: Yes Status: Acute Assessment and plan: MELD score 11 Qualifiers: Viral hepatitis chronicity: chronic Hepatic coma status: without hepatic coma Qualified Code(s): B18.2 - Chronic viral hepatitis C (5) IVDU (intravenous drug user) Current Visit: Yes Status: Acute Assessment and plan: HIV status nonreactive (6) Leukocytosis Current Visit: Yes Status: Acute Assessment and plan: Leukocytosis improving, continue to monitor, continue a BX therapy with adjustments per infectious disease Qualifiers: Leukocytosis type: unspecified Qualified Code(s): D72.829 - Elevated white blood cell count, unspecified - Time Spent With Patient Total time spent is greater than 50% in coordination of care (as documented) at patient's floor/unit and/or counseling patient: Greater than 35 minutes - Subjective Interval history: Patient seen and examined at bedside today. Found to have right hand infection with cellulitis versus septic arthritis versus necrotizing fasciitis. Patient reports right arm swelling progressing overnight. Continued to report pain in right arm. Also, reporting shallow respirations and difficulty breathing. - Constitutional Vitals: Temp Pulse Resp BP Pulse Ox 98.6 F 123 27 123/73 96 10/03/17 10:37 10/03/17 10:37 10/03/17 10:37 10/03/17 10:37 10/03/17 10:37 General appearance: Present: A&O X 3 - Head Head exam: Present: atraumatic, normocephalic - Eye Eye exam: Present: PERRL, conjuntiva pink, sclera anicteric Pupils: Present: PERRL - Neck Neck exam general surgery: Present: supple, trachea midline. Absent: lymphadenopathy - Respiratory Respiratory exam: Present: decreased breath sounds, CTAB, tachypnea. Absent: accessory muscle use, chest wall tenderness, rales, respiratory distress, rhonchi, wheezes Additional comments: Respirations shallow, no accessory muscle usage, 96% on room air - Cardiovascular Cardiovascular exam: Present: RRR, +S1, +S2. Absent: diastolic murmur, gallop, rubs, systolic murmur - GI/Abdominal GI/Abdominal exam: Present: normal bowel sounds, soft, no peritoneal signs. Absent: distended, tenderness - Extremities Exam Extremities exam: Present: warm, radial pulses palpable and symmetrical. Absent : calf tenderness, cyanotic, pedal edema - Neurological Exam Neurological exam: Present: CN II-XII intact, oriented X3, no focal deficits. Absent: pronater drift, facial droop, speech deficit - Skin Skin exam: Present: dry, intact Internal Medicine: Result - Labs CBC & Chem 7: 10/03/17 04:00 10/03/17 04:00 Labs: Short CBC 10/03/17 Range/Units 04:00 WBC 14.0 H (4.3-11.1) K/mcL Hgb 11.0 L D (11.5-15.4) g/dL Hct 32.1 L (35.3-44.9) % Plt Count 161 (140-400) K/mcL Neutrophils # 10.6 H (1.6-8.9) K/mcL BMP 10/03/17 04:00 Sodium 136 Potassium 3.6 Chloride 107 Carbon Dioxide 22 L BUN 12 Creatinine 0.61 Glucose 103 Calcium 8.4 L Cardiac Enzymes 10/03/17 Range/Units 04:00 Troponin I < 0.03 (< 0.04) ng/mL Urine 10/02/17 Range/Units 16:01 Urine Color Yellow (Yellow) Urine Clarity Clear (Clear) Urine pH 5.5 (5.0-8.0) pH Units Ur Specific [place] > 1.030 H (1.010-1.025) Urine Protein Trace (Neg-Trace) mg/dL Urine Glucose (UA) Normal (Normal) mg/dL - ABG Interpretation ABG results: ABG ABG pH 7.46 pH Units (7.32-7.45) H 10/02/17 20:47 ABG pCO2 29 mmHg (35-45) L 10/02/17 20:47 ABG pO2 72 mmHg (85-104) L 10/02/17 20:47 ABG O2 Saturation 95 % (95-98) 10/02/17 20:47 PT/INR, D-dimer PT 16.6 Seconds (9.4-12.1) H 10/02/17 08:41 - Impressions Impressions Hand MRI 10/02/17 18:13 IMPRESSION: Diffuse soft tissue edema with ill-defined fluid throughout the hands. No defined fluid collection. Tenosynovitis involving the 3rd through 5th extensor tendons. No findings to suggest osteomyelitis. D/ / Echo Osborn MD / Echo Osborn MD Interpreting Provider: Echo Osborn MD Head CT 10/02/17 20:32 IMPRESSION: No acute intracranial abnormality. D/ / Clarissa Restrepo Cha, MD / Clarissa Restrepo Cha, MD Interpreting Provider: Clarissa Restrepo Cha, MD Echocardiogram 10/03/17 12:44 Impressions: Sinus tachycardia. LVEF 65%. Indeterminate diastolic function. Normal right ventricular structure and function. No significant valvular dysfunction. No pulmonary hypertension. Consider repeat study when heart rates improve. Left Ventricular Wall Motion: Rest Echo Findings All wall segments showed normal motion. Findings: Study Quality * Technically challenging due to clinical status - patient supine for imaging, heart rates elevated. ECG Findings * Sinus tachycardia. Left Ventricle * LVEF 65%. * Normal LV chamber size, wall thickness and function. * Indeterminate diastolic function. Right Ventricle * Normal right ventricular structure and function. Left Atrium * Normal left atrial size. Right Atrium * Normal right atrial size. Aortic Valve * No aortic regurgitation. * No aortic stenosis. * Aortic valve not well visualized. Mitral Valve * No mitral regurgitation. * Normal mitral valve structure. * No mitral stenosis. Tricuspid Valve * Normal tricuspid valve structure. * No tricuspid stenosis. Pulmonic Valve * Pulmonic valve is not well visualized. * No pulmonic stenosis. * No pulmonic regurgitation. Pulmonary Artery * Pulmonary artery not well visualized. Aorta * Normally sized aortic root. Pericardium * There is no pericardial effusion present. Interatrial Septum * No evidence of PFO by color Doppler. IVC * The IVC is dilated. Consult Discharge Plan - Plan Referrals: NONE,PCP [Primary Care Provider] -
[2017-10-03] MEDS ORDERED: Gadolinium Contrast Agent (WT Based) IV PRN (11:08)
[2017-10-03] MEDS: 0.9 % Sodium Chloride 1,000 ML IVC SCH ×2 (12:46→23:33)
--- NOTE | 2017-10-03 13:19 | Orthopedics Progress Note ---
Date of Encounter: 10/03/17 Time of Encounter: 13:16 Subjective Principal diagnosis: Right upper extremity infection Interval history: 10/03/2017. Patient states that the forearm is more swollen and painful. Having dyspnea. Having difficulty with moving fingers well. Vital signs are stable. Patient is afebrile. White blood cell count is improved. The hand shows pitting edema. No discrete abscess or fluctuant area. Several small areas on the dorsum of the hand where suspect there were skin pops are draining serous fluid. Forearm is somewhat edematous. Overall I think the arm is improved. MRI was reviewed last night. No discrete abscess or loculated fluid cavity was noted. Impression: Right upper extremity infection secondary to IVDA. Recommendation: Discussed with the patient that I do not see anything that requires surgical intervention at this time. Recommend that she maintain elevation of the extremity and work aggressively at trying to muscle pump the forearm and work range of motion of the fingers. Objective Vital signs: Vital Signs Temp Pulse Resp BP Pulse Ox 10/03/17 11:25 97.9 F 123 23 131/74 94 10/03/17 10:37 98.6 F 123 27 123/73 96 10/03/17 09:25 97.9 F 122 23 123/73 95 10/03/17 08:06 98.2 F 129 27 115/66 95 10/03/17 06:40 98.0 F 131 18 122/79 97 10/03/17 03:20 98.0 F 138 24 128/72 97 10/03/17 02:19 97.6 F 135 26 114/73 97 10/03/17 01:18 98.0 F 139 30 104/71 95 10/03/17 00:06 99.8 F H 143 28 121/70 95 10/02/17 22:15 98.0 F 132 20 109/69 96 10/02/17 21:18 98.7 F 153 32 112/68 98 10/02/17 20:18 98.1 F 152 40 115/74 97 10/02/17 17:17 100.2 F H 153 18 106/70 98 10/02/17 15:41 98.1 F 152 18 101/68 99 Intake and Output 10/02/17 10/03/17 10/03/17 23:59 07:59 15:59 Intake Total 1050 / 1050 400 / 400 Output Total 500 / 500 Balance 550 / 550 400 / 400 Intake: IV Fluids 1050 / 1050 400 / 400 0.9 % Sodium Chloride 1,000 ML 1000 / 1000 @ 3750 mls/hr IVC .Q16M ONE Rx# :[id number] Cleocin Premix 900 MG/50 ML 900 50 / 50 50 / 50 mg In 50 ml @ 50 mls/hr IVPB Q8HR [facility] Rx#:[id number] Zosyn 3.375 GM In 0.9 % Sodium 100 / 100 Chloride (Mini-Bag +) 100 ML @ 25 mls/hr IVPB Q8HR [facility] Rx#: [id number] Vancocin 1,250 MG In 0.9 % 250 / 250 Sodium Chloride 250 ML @ 167 mls/hr IVPB Q12H [facility] Rx#: [id number] Oral 0 / 0 Output: Urine 500 / 500 Other: # Voids 1 Weight 62.5 kg Blood Glucose* 102 Patient Weight 10/03/17 23:59 Weight 62.5 kg - Labs CBC & BMP: 10/03/17 04:00 10/03/17 04:00 Labs: Abnormal lab results WBC 14.0 K/mcL (4.3-11.1) H 10/03/17 04:00 Hgb 11.0 g/dL (11.5-15.4) L D 10/03/17 04:00 Hct 32.1 % (35.3-44.9) L 10/03/17 04:00 MCV 80.9 fL (83.0-100.0) L 10/03/17 04:00 MCH 27.7 pg (28.0-33.3) L 10/03/17 04:00 RDW 14.7 % (11.5-14.5) H 10/03/17 04:00 Band Neutrophils % 42.0 % (0-4) H 10/03/17 04:00 Metamyelocytes % 4.0 % (0) H 10/03/17 04:00 Neutrophils # 10.6 K/mcL (1.6-8.9) H 10/03/17 04:00 PT 16.6 Seconds (9.4-12.1) H 10/02/17 08:41 ABG pH 7.46 pH Units (7.32-7.45) H 10/02/17 20:47 ABG pCO2 29 mmHg (35-45) L 10/02/17 20:47 ABG pO2 72 mmHg (85-104) L 10/02/17 20:47 Carbon Dioxide 22 mEq/L (23-29) L 10/03/17 04:00 Calcium 8.4 mg/dL (8.6-10.3) L 10/03/17 04:00 Total Bilirubin 1.1 mg/dL (0.3-1.0) H 10/02/17 08:14 Globulin 3.7 g/dL (2.4-3.5) H 10/02/17 08:14 Albumin/Globulin Ratio 0.9 (1.1-2.2) L 10/02/17 08:14 Ur Specific [place] > 1.030 (1.010-1.025) H 10/02/17 16:01 Urine Blood Trace (Negative) H 10/02/17 16:01 Urine Microscopic WBC 5-15 per hpf (0-3) H 10/02/17 16:01 Ur Squamous Epith Cells Many per lpf (None-Few) H 10/02/17 16:01 Urine Opiates Screen Positive ng/mL (Zqwbxl=596) H 10/02/17 16:01 U Marijuana (THC) Screen Positive ng/mL (Cutoff = 50) H 10/02/17 16:01 Staphylococcus sp PCR DETECTED (Not Detect) A 10/02/17 08:56 Staph aureus (PCR) DETECTED (Not Detect) A 10/02/17 08:56 mecA-Methicil Res Gene DETECTED (Not Detect) A 10/02/17 08:56 Consult Discharge Plan - Plan Referrals: NONE,PCP [Primary Care Provider] -
[2017-10-03] MEDS: Levofloxacin 500 MG/100 ML 500 MG/100 ML BAG IVPB SCH (16:09)
[2017-10-03] MEDS ORDERED: 0.9 % Sodium Chloride 1,000 ML IVC SCH (23:30)
[2017-10-04] MEDS: *HR* Morphine 2 MG/ML SYRINGE IVP PRN ×3 (01:19→14:30)
[2017-10-04 05:34] LABS: Basophils # 0.1 K/mcL (0.0-0.2); Basophils % 0.6 %; Eosinophils # 0.2 K/mcL (0.0-0.6); Hematocrit 32.5 % (35.3-44.9); Hemoglobin 11.3 g/dL (11.5-15.4); Immature Granulocytes % 1.7 % (0-4); Lymphocytes # 1.7 K/mcL (0.6-4.6); Lymphocytes % 11.1 %; Mean Corpuscular HGB Conc 34.8 g/dL (31.6-35.5); Mean Corpuscular Hemoglobin 28.4 pg (28.0-33.3); Mean Corpuscular Volume 81.7 fL (83.0-100.0); Mean Platelet Volume 10.4 fL (9.4-12.4); Monocytes % 6.4 %; Neutrophils # 12.3 K/mcL (1.6-8.9); Platelet Count 205 K/mcL (140-400); Red Blood Count 3.98 M/mcL (3.82-4.97); Red Cell Distribution Width 14.9 % (11.5-14.5); Segmented Neutrophils % 79.2 %
[2017-10-04 05:52] LABS: Platelet Estimate Normal (Normal); Reactive Lymphocytes Present (Not Present)
[2017-10-04 05:53] LABS: BUN/Creatinine Ratio 21 (6-26); Blood Urea Nitrogen 12 mg/dL (6-20); Calcium 8.2 mg/dL (8.6-10.3); Carbon Dioxide 22 mEq/L (23-29); Chloride 107 mEq/L (98-107); Glucose 99 mg/dL (70-105); Osmolality,Calculated 278 (280-300); Potassium 3.6 mEq/L (3.5-5.1); Sodium 134 mEq/L (136-145); eGFR For African Americans > 60 (> 60); eGFR For Non-African Americans > 60 (> 60)
[2017-10-04] MEDS: tiZANidine 4 MG TABLET PO SCH ×3 (07:54→23:03)
[2017-10-04] MEDS: Gabapentin 400 MG CAPSULE PO SCH ×4 (07:55→23:03)
[2017-10-04] MEDS: Nicotine 21 MG PATCH.TD24 TD SCH (07:55)
[2017-10-04] MEDS: Clindamycin 900 MG/50 ML 900 MG/50 ML IV.SOLN IVPB SCH ×2 (07:56→16:50)
[2017-10-04] MEDS: Acetaminophen 325 MG TABLET PO PRN (10:22)
--- NOTE | 2017-10-04 11:56 | Internal Med Progress Note ---
Date of Encounter: 10/04/17 Time of Encounter: 11:54 - Assessment and plan (1) Severe sepsis Current Visit: Yes Status: Acute Assessment and plan: In the setting of cellulitis to the right hand, bacteremia, septic emboli Afebrile, remains tachycardic heart rate of 112, blood pressure stable mildly tachypneic with respiratory rate of 26 and shallow respirations but 98% on 2 L nasal cannula Lactic acid this morning 1.8, white blood cell count 15.5 today, vitals remain stable. Infectious disease and Dr. Nuñez on board and following IV ABX managed per ID patient is currently on clindamycin, Levaquin and Zosyn, continue these medications Continues to be septic without septic shock Closely monitor for changes in hemodynamic status Closely monitor for increasing leukocytosis CBC and BMP daily (2) Cellulitis Current Visit: Yes Status: Acute Assessment and plan: Secondary to IVDU Repeat blood cultures completed-growing gram-positive cocci MRSA Dr. Nuñez from orthopedics following. No fluid collection noted on MRI, swelling extending into right forearm however, pitting edema on right hand and forearm and and positive for capillary refill. No need for incision and drainage at this time Patient on clindamycin, Levaquin and Zosyn, continue these medications Supportive care with IV Toradol, and IV morphine PRN, continue these current pain control measures Maintain extremity elevation Several small areas on the dorsum of the hand from prior IVDU now draining serous fluid Patient remained septic and requiring frequent monitoring Qualifiers: Site of cellulitis: extremity Site of cellulitis of extremity: upper extremity Laterality: right Qualified Code(s): L03.113 - Cellulitis of right upper limb (3) Septic embolism Current Visit: Yes Status: Suspected Assessment and plan: CTA of chest with results as follows 1. Pulmonary nodules as described. Considering patient's age, the distribution of lesions, the overall appearance of the lesions and presentation, these are most likely related to infectious process, autoimmune process or possibly vasculitis. Though not excluded based on the appearance alone, this would be exceedingly unusual appearance for neoplasia. Bronchoscopic evaluation may be useful. 2. Adenopathy in the right axilla, mediastinum and right hilum presumably related to the acute pulmonary process. 3. No pulmonary embolism. Multiple septic emboli, respiratory status today improving compared to yesterday , patient still tachypneic with shallow respirations reports she has not been short of breath as yesterday. Initially this morning respiratory rate in the 30s however patient was not on O2 supplementation. With the addition of O2 supplementation restaurant status improved respiratory rate now in the 20s, 98% on 2 L nasal cannula, heart rate improving. Continue to closely monitor respiratory status Check of respiratory infection panel unremarkable Legionella and pneumococcal antigen unremarkable Continue a BX per infectious disease (4) Hepatitis C Current Visit: Yes Status: Acute Assessment and plan: MELD score 11 Qualifiers: Viral hepatitis chronicity: chronic Hepatic coma status: without hepatic coma Qualified Code(s): B18.2 - Chronic viral hepatitis C (5) IVDU (intravenous drug user) Current Visit: Yes Status: Acute Assessment and plan: HIV status nonreactive IVDU history, cellulitis of right hand/forearm due to IVDU Patient has sepsis and septic emboli Infectious disease following Orthopedics following (6) Leukocytosis Current Visit: Yes Status: Acute Assessment and plan: Leukocytosis in the setting of sepsis 2/2 cellulitis of right hand, septic emboli Leukocytosis with WBC of 15.5 today, continue to monitor closely, continue ABX therapy with vancomycin, clindamycin and Levaquin per recommendations of infectious disease Qualifiers: Leukocytosis type: unspecified Qualified Code(s): D72.829 - Elevated white blood cell count, unspecified (7) DVT prophylaxis Current Visit: Yes Status: Acute Assessment and plan: Continue SCDs - Time Spent With Patient Total time spent is greater than 50% in coordination of care (as documented) at patient's floor/unit and/or counseling patient: Greater than 35 minutes - Subjective Interval history: Patient seen and examined at bedside today. Found to have right hand infection with cellulitis of right hand without fluid collection. Patient reports right arm swelling improving overnight. Continued to report pain in right arm/hand. Also, reporting shallow respirations but reports shortness of breath is improving. Initially upon my examination this morning the patient was having some shortness of breath and tachypnea with rate in the 30s however, at this time she was found to not be on O2 support. Crestor status improved with O2 support H now in the mid to low 20s. Also of note the patient was noted to be febrile this morning Tylenol was given and now afebrile, heart rate improving - Constitutional Vitals: Temp Pulse Resp BP Pulse Ox 98.6 F 112 26 127/75 98 10/04/17 11:27 10/04/17 11:27 10/04/17 11:27 10/04/17 11:27 10/04/17 11:27 General appearance: Present: A&O X 3 - Head Head exam: Present: atraumatic, normocephalic - Eye Eye exam: Present: PERRL, conjuntiva pink, sclera anicteric Pupils: Present: PERRL - Neck Neck exam general surgery: Present: supple, trachea midline. Absent: lymphadenopathy - Respiratory Respiratory exam: Present: decreased breath sounds, CTAB, tachypnea. Absent: accessory muscle use, chest wall tenderness, rales, rhonchi, wheezes Additional comments: Shallow respirations - Cardiovascular Cardiovascular exam: Present: RRR, +S1, +S2, tachycardia. Absent: diastolic murmur, gallop, rubs, systolic murmur - GI/Abdominal GI/Abdominal exam: Present: normal bowel sounds, soft, no peritoneal signs. Absent: distended, tenderness - Extremities Exam Extremities exam: Present: warm, radial pulses palpable and symmetrical. Absent : calf tenderness, cyanotic, pedal edema - Expanded Upper Extremities Exam Upper Arm exam: Present: erythema, swelling, tenderness. Absent: full ROM Hand wrist exam: Present: erythema, swelling, tenderness. Absent: full ROM Hand L/R back image: 1 - Swelling to dorsum and fingers of right hand, pitting edema, blanchable and adequate circulation with normal capillary refill. Clear serous drainage coming from healing sites from IVDU, swelling appears to have improved compared to yesterday. Neuro motor exam: Absent: fingers 2-5 abduction intact, thumb adduction intact, thumb opposition intact Vascular exam: Present: normal capillary refill, radial pulse right - Neurological Exam Neurological exam: Present: CN II-XII intact, oriented X3, no focal deficits. Absent: pronater drift, facial droop, speech deficit - Skin Skin exam: Present: dry, intact Internal Medicine: Result - Labs CBC & Chem 7: 10/04/17 04:00 10/04/17 04:00 Labs: Short CBC 10/04/17 Range/Units 04:00 WBC 15.5 H (4.3-11.1) K/mcL Hgb 11.3 L (11.5-15.4) g/dL Hct 32.5 L (35.3-44.9) % Plt Count 205 (140-400) K/mcL Neutrophils # 12.3 H (1.6-8.9) K/mcL BMP 10/04/17 04:00 Sodium 134 L Potassium 3.6 Chloride 107 Carbon Dioxide 22 L BUN 12 Creatinine 0.57 L Glucose 99 Calcium 8.2 L - ABG Interpretation ABG results: ABG ABG pH 7.46 pH Units (7.32-7.45) H 10/02/17 20:47 ABG pCO2 29 mmHg (35-45) L 10/02/17 20:47 ABG pO2 72 mmHg (85-104) L 10/02/17 20:47 ABG O2 Saturation 95 % (95-98) 10/02/17 20:47 PT/INR, D-dimer PT 16.6 Seconds (9.4-12.1) H 10/02/17 08:41 Consult Discharge Plan - Plan Referrals: NONE,PCP [Primary Care Provider] -
[2017-10-04] MEDS: Naloxone 0.4 MG/ML INJ IVP PRN (12:29)
[2017-10-04] MEDS: Levofloxacin 500 MG/100 ML 500 MG/100 ML BAG IVPB SCH (14:50)
--- NOTE | 2017-10-04 15:42 | Orthopedics Progress Note ---
Date of Encounter: 10/04/17 Time of Encounter: 15:31 Subjective Principal diagnosis: Right upper extremity infection Interval history: 10/03/2017. Patient states that the forearm is more swollen and painful. Having dyspnea. Having difficulty with moving fingers well. Vital signs are stable. Patient is afebrile. White blood cell count is improved. The hand shows pitting edema. No discrete abscess or fluctuant area. Several small areas on the dorsum of the hand where suspect there were skin pops are draining serous fluid. Forearm is somewhat edematous. Overall I think the arm is improved. MRI was reviewed last night. No discrete abscess or loculated fluid cavity was noted. Impression: Right upper extremity infection secondary to IVDA. Recommendation: Discussed with the patient that I do not see anything that requires surgical intervention at this time. Recommend that she maintain elevation of the extremity and work aggressively at trying to muscle pump the forearm and work range of motion of the fingers. 10/04/2017. Patient is feeling better today. She is noticing more motion and less pain in the fingers. Vital signs are stable. Patient is currently afebrile though she did have a temperature above 100.3 earlier. exam reveals less edema & erythema in hand & forearm. pitting edema in hand without fluctuance. Able to move her fingers better. WBC 15.5. PLT 205 blood cultures positive for gram-positive cocci. Impression:gram-positivecocci bacteremia with right upper extremity infection, probable MRSA REcommendation: continue IV Abx. Observer RUE. No indication for formal I&D at this time. Objective Vital signs: Vital Signs Temp Pulse Resp BP Pulse Ox 10/04/17 12:33 97.7 F 127 10 152/82 98 10/04/17 11:27 98.6 F 112 26 127/75 98 10/04/17 10:05 100.3 F H 119 32 117/67 97 10/04/17 08:58 98.1 F 122 34 124/72 34 10/04/17 06:53 100.2 F H 135 16 143/75 95 10/04/17 04:21 99 F 135 17 115/73 91 10/04/17 01:16 128 120/72 10/03/17 23:45 99.6 F 127 17 103/64 92 10/03/17 20:00 98.9 F 132 16 121/74 95 10/03/17 18:58 97.3 F L 123 24 115/63 97 10/03/17 17:34 98.7 F 115 18 115/70 96 10/03/17 16:00 97.8 F 122 20 131/72 96 Intake and Output 10/03/17 10/04/17 10/04/17 23:59 07:59 15:59 Intake Total 1400 / 1400 680 / 680 480 / 480 Balance 1400 / 1400 680 / 680 480 / 480 Intake: IV Fluids 1400 / 1400 300 / 300 0.9 % Sodium Chloride 1,000 ML 1000 / 1000 @ 100 mls/hr IVC .Q10H [facility] Rx#: [id number] Cleocin Premix 900 MG/50 ML 900 50 / 50 50 / 50 mg In 50 ml @ 50 mls/hr IVPB Q8HR [facility] Rx#:[id number] Levaquin Premix 500mg/100mL 500 100 / 100 mg In 100 ml @ 100 mls/hr IVPB Q24H [facility] Rx#:[id number] Vancocin 1,000 MG In 0.9 % 250 / 250 250 / 250 Sodium Chloride 250 ML @ 167 mls/hr IVPB Q8H [facility] Rx#: [id number] Oral 380 / 380 480 / 480 Other: Meal Breakfast Percent of Meal Consumed 100% # Voids 1 Weight 62.3 kg Patient Weight 10/04/17 23:59 Weight 62.3 kg - Labs CBC & BMP: 10/04/17 04:00 10/04/17 04:00 Labs: Abnormal lab results WBC 15.5 K/mcL (4.3-11.1) H 10/04/17 04:00 Hgb 11.3 g/dL (11.5-15.4) L 10/04/17 04:00 Hct 32.5 % (35.3-44.9) L 10/04/17 04:00 MCV 81.7 fL (83.0-100.0) L 10/04/17 04:00 RDW 14.9 % (11.5-14.5) H 10/04/17 04:00 Band Neutrophils % 42.0 % (0-4) H 10/03/17 04:00 Metamyelocytes % 4.0 % (0) H 10/03/17 04:00 Neutrophils # 12.3 K/mcL (1.6-8.9) H 10/04/17 04:00 Reactive Lymphocytes Present (Not Present) A 10/04/17 04:00 PT 16.6 Seconds (9.4-12.1) H 10/02/17 08:41 ABG pH 7.46 pH Units (7.32-7.45) H 10/02/17 20:47 ABG pCO2 29 mmHg (35-45) L 10/02/17 20:47 ABG pO2 72 mmHg (85-104) L 10/02/17 20:47 Sodium 134 mEq/L (136-145) L 10/04/17 04:00 Carbon Dioxide 22 mEq/L (23-29) L 10/04/17 04:00 Creatinine 0.57 mg/dL (0.60-1.20) L 10/04/17 04:00 POC Glucose 102 mg/dL (70-99) H 10/03/17 08:01 Calculated Osmolality 278 (280-300) L 10/04/17 04:00 Calcium 8.2 mg/dL (8.6-10.3) L 10/04/17 04:00 Total Bilirubin 1.1 mg/dL (0.3-1.0) H 10/02/17 08:14 Globulin 3.7 g/dL (2.4-3.5) H 10/02/17 08:14 Albumin/Globulin Ratio 0.9 (1.1-2.2) L 10/02/17 08:14 Ur Specific [place] > 1.030 (1.010-1.025) H 10/02/17 16:01 Urine Blood Trace (Negative) H 10/02/17 16:01 Urine Microscopic WBC 5-15 per hpf (0-3) H 10/02/17 16:01 Ur Squamous Epith Cells Many per lpf (None-Few) H 10/02/17 16:01 Vancomycin Trough 22 mcg/mL (5-10) H 10/04/17 14:26 Urine Opiates Screen Positive ng/mL (Ggowkv=024) H 10/02/17 16:01 U Marijuana (THC) Screen Positive ng/mL (Cutoff = 50) H 10/02/17 16:01 Staphylococcus sp PCR DETECTED (Not Detect) A 10/02/17 08:56 Staph aureus (PCR) DETECTED (Not Detect) A 10/02/17 08:56 mecA-Methicil Res Gene DETECTED (Not Detect) A 10/02/17 08:56 Consult Discharge Plan - Plan Referrals: NONE,PCP [Primary Care Provider] -
--- NOTE | 2017-10-04 16:29 | Event Note ---
Date of Encounter: 10/04/17 Time of Encounter: 16:25 This afternoon at approximately 1 to 1:30 PM I was informed that the patient was somnolent and had a change in mental status. Upon assessment of the patient she appeared to be arousable to physical stimulus but was unable to maintain eye contact or participate and indication/conversation. Patient with known IVDU heroin abuse here for cellulitis of right hand and forearm without drainable abscess. Being treated with broad spectrum antibiotics due to sepsis , septic emboli and possible endocarditis. Patient's significant other at bedside. Patient was given IV Narcan, mental status immediately improved, significant other way into the bathroom and he could hear the toilet flushing. Security called and checked patient's and significant other's belongings, no drugs or paraphernalia found. Significant other agitated exclaiming to the patient "you have screwed me this time ". After Narcan administration, patient remaining alert and appropriate. There are review of patient's medical records revealed she was only receiving 4 mg of IV morphine every 6 hours this is likely not contributing to her altered state. IV morphine down titrated to 1 mg every 6 hours. Continue to closely monitor patient and activity of room and visitors.
[2017-10-04] MEDS: *HR* OxyCODONE/APAP 7.5/325 TABLET PO PRN (23:02)
[2017-10-05] MEDS: Clindamycin 900 MG/50 ML 900 MG/50 ML IV.SOLN IVPB SCH ×2 (02:39→09:20)
[2017-10-05 05:57] LABS: Basophils # 0.1 K/mcL (0.0-0.2); Basophils % 0.8 %; Eosinophils # 0.2 K/mcL (0.0-0.6); Eosinophils % 1.2 %; Hematocrit 30.4 % (35.3-44.9); Hemoglobin 10.4 g/dL (11.5-15.4); Immature Granulocytes % 6.2 % (0-4); Lymphocytes # 1.9 K/mcL (0.6-4.6); Lymphocytes % 12.9 %; Mean Corpuscular HGB Conc 34.2 g/dL (31.6-35.5); Mean Corpuscular Hemoglobin 27.8 pg (28.0-33.3); Mean Corpuscular Volume 81.3 fL (83.0-100.0); Mean Platelet Volume 10.1 fL (9.4-12.4); Monocytes # 1.4 K/mcL (0.0-1.3); Monocytes % 9.8 %; Neutrophils # 10.1 K/mcL (1.6-8.9); Nucleated Red Blood Cells 0.1 /100 WBC (0); Platelet Count 224 K/mcL (140-400); Red Blood Count 3.74 M/mcL (3.82-4.97); Red Cell Distribution Width 15.4 % (11.5-14.5); Segmented Neutrophils % 69.1 %
[2017-10-05 06:18] LABS: BUN/Creatinine Ratio 18 (6-26); Blood Urea Nitrogen 9 mg/dL (6-20); Calcium 7.9 mg/dL (8.6-10.3); Carbon Dioxide 23 mEq/L (23-29); Chloride 108 mEq/L (98-107); Glucose 100 mg/dL (70-105); Osmolality,Calculated 283 (280-300); Potassium 3.3 mEq/L (3.5-5.1); Sodium 137 mEq/L (136-145); eGFR For African Americans > 60 (> 60); eGFR For Non-African Americans > 60 (> 60)
--- NOTE | 2017-10-05 06:22 | Electrocardiograph Report ---
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
[2017-10-05 06:32] LABS: Hypochromasia Present (Not Present); Platelet Estimate Normal (Normal)
[2017-10-05] MEDS: *HR* Morphine 2 MG/ML SYRINGE IVP PRN (09:19)
[2017-10-05] MEDS: Gabapentin 400 MG CAPSULE PO SCH ×4 (09:28→20:12)
[2017-10-05] MEDS: tiZANidine 4 MG TABLET PO SCH ×3 (09:28→20:13)
[2017-10-05] MEDS ORDERED: Tetracaine/Benzocaine/Butamben 200MG/SPRAY (100SPY/BOT) MM ONE (10:12)
[2017-10-05] MEDS ORDERED: 0.9 % Sodium Chloride 500 ML IVC ONE (10:12)
[2017-10-05] MEDS ORDERED: Lidocaine Viscous Oral Soln 15 ML SOLUTION MM PRN (10:12)
[2017-10-05] MEDS: *HR* Midazolam HCl 5 MG/5 ML VIAL IVP PRN ×3 (10:55→11:05)
[2017-10-05] MEDS: *HR* FentaNYL (PF) 100 MCG/2 ML VIAL IVP PRN ×3 (10:55→11:05)
--- NOTE | 2017-10-05 10:59 | Internal Med Progress Note ---
Date of Encounter: 10/05/17 Time of Encounter: 10:00 - Assessment and plan (1) Severe sepsis Current Visit: Yes Status: Acute Assessment and plan: In the setting of cellulitis to the right hand, bacteremia, septic emboli Blood cultures 2/2 with gram-positive cocci, MRSA Echocardiogram 10/03/17 with no obvious vegetation, [place] to be completed today; suspect possible endocarditis Febrile with Tmax of 100.3 yesterday and tachycardic heart rate of 112, leukocytosis. She is mildly tachypneic with respiratory rate high teens to low 20s and shallow respirations but 98% on room air. Hemodynamically stable. WBC improving today at 14.[address] Nuñez on board and following IV ABX managed per ID; recommendations are to discontinue Levaquin and clindamycin, continue vancomycin with PT to dose Repeat blood cultures now Sepsis without septic shock Closely monitor for changes in hemodynamic status Closely monitor for increasing leukocytosis CBC and BMP daily (2) Cellulitis Current Visit: Yes Status: Acute Assessment and plan: Secondary to IVDU Blood cultures growing gram-positive cocci, MRSA, continue to repeat cultures per infectious disease Orthopedics following. No drainable abscess per MRI. No osteomyelitis, no joint effusion. Diffuse soft tissue edema. Continues to have pitting edema on right hand without fluctuance and forearm swelling without pitting edema. Radial pulses palpable bilaterally, positive capillary refill to all 5 fingers of right hand. Patient on clindamycin, Levaquin and Zosyn, continue these medications, adjust per recommendations of infectious disease Morphine dose decreased to 1 mg IV push every 6 when necessary, continue Toradol Maintain extremity elevation Several small areas on the dorsum of the hand from prior IVDU now draining serous fluid Patient remained septic and requiring frequent monitoring Duration of treatment depends on clinical picture, defer to infectious disease Qualifiers: Site of cellulitis: extremity Site of cellulitis of extremity: upper extremity Laterality: right Qualified Code(s): L03.113 - Cellulitis of right upper limb (3) Septic embolism Current Visit: Yes Status: Suspected Assessment and plan: CTA of chest with results as follows 1. Pulmonary nodules as described. Considering patient's age, the distribution of lesions, the overall appearance of the lesions and presentation, these are most likely related to infectious process, autoimmune process or possibly vasculitis. Though not excluded based on the appearance alone, this would be exceedingly unusual appearance for neoplasia. Bronchoscopic evaluation may be useful. 2. Adenopathy in the right axilla, mediastinum and right hilum presumably related to the acute pulmonary process. 3. No pulmonary embolism. Multiple septic emboli, respiratory status today improving compared to yesterday , patient still tachypneic with shallow respirations but does not appear to be overtly short of breath. Currently on room air without respiratory distress. Patient remains tachypneic respiratory rate in the high teens to low 20s. Appears to be improving overall. Lungs clear/diminished bilaterally AP and L. Continue to closely monitor respiratory status, respiratory support as needed S. Pneumo and legionella UAT negative RIP negative Continue ABX per recommendations of infectious disease TTE completed today with no evidence for source of emboli Clinical status does not improve and suspicion for endocarditis remains suggest repeating TTE in 7-10 days (4) Hepatitis C Current Visit: Yes Status: Acute Assessment and plan: MELD score 11 Qualifiers: Viral hepatitis chronicity: chronic Hepatic coma status: without hepatic coma Qualified Code(s): B18.2 - Chronic viral hepatitis C (5) IVDU (intravenous drug user) Current Visit: Yes Status: Acute Assessment and plan: HIV status nonreactive IVDU history, cellulitis of right hand/forearm due to IVDU Patient has sepsis and septic emboli Infectious disease following Orthopedics following See further planning above (6) Leukocytosis Current Visit: Yes Status: Acute Assessment and plan: Leukocytosis in the setting of sepsis 2/2 cellulitis of right hand, septic emboli Leukocytosis continuing to improve today with WBC of 14.6., continue to monitor closely, continue ABX therapy per recommendations of infectious disease Qualifiers: Leukocytosis type: unspecified Qualified Code(s): D72.829 - Elevated white blood cell count, unspecified (7) Drug overdose Current Visit: Yes Status: Suspected Assessment and plan: Patient was receiving pain control with IV Toradol and 4 mg IV morphine. Needed Narcan next 2 yesterday; I suspect she may have been receiving narcotics from visitors. Was found with altered mental status and decreased level of consciousness. Appear to be chemically altered, unable to dissipate examination , arousable to physical stimuli but unable to open eyes and communicate. Security was called answers room finding no contraband or narcotics. Visitors required to check and prior to entering room. Please see my event note on date 5/20/18 for further details Qualifiers: Qualified Code(s): T50.901A - Poisoning by unspecified drugs, medicaments and biological substances, accidental (unintentional), initial encounter (8) DVT prophylaxis Current Visit: Yes Status: Acute Assessment and plan: Continue SCDs - Time Spent With Patient Total time spent is greater than 50% in coordination of care (as documented) at patient's floor/unit and/or counseling patient: Greater than 35 minutes - Subjective Interval history: Patient seen and examined at bedside today. Found to have right hand infection with cellulitis of right hand without fluid collection. Patient reports right arm swelling improving overnight. Continued to report pain in right arm/hand. Also, reporting shallow respirations but reports shortness of breath is improving. Patient seen and examined at bedside today, alert and oriented 3. Still having shallow respirations but does not appear to be in respiratory distress or overtly short of breath. Reporting left chest pain/discomfort intermittent. Denies worsening of pain with inspiration or expiration. Remains tachycardic and mildly tachypneic. Reports that she feels like her arm is more swollen than yesterday. Per my assessment the swelling does not appear to have progressed. Her right hand looks less erythematous than yesterday. - Constitutional Vitals: Temp Pulse Resp BP Pulse Ox 98.4 F 118 20 144/84 95 10/05/17 10:24 10/05/17 10:24 10/05/17 10:24 10/05/17 10:24 10/05/17 10:24 General appearance: Present: A&O X 3 - Head Head exam: Present: atraumatic, normocephalic - Eye Eye exam: Present: PERRL, conjuntiva pink, sclera anicteric Pupils: Present: PERRL - Neck Neck exam general surgery: Present: supple, trachea midline. Absent: lymphadenopathy - Respiratory Respiratory exam: Present: decreased breath sounds, CTAB, respiratory distress ( Mild), tachypnea. Absent: accessory muscle use, chest wall tenderness, rales, rhonchi, wheezes - Cardiovascular Cardiovascular exam: Present: RRR, +S1, +S2, tachycardia. Absent: diastolic murmur, gallop, irregular rhythm, JVD, rubs, +S3, +S4, systolic murmur - GI/Abdominal GI/Abdominal exam: Present: normal bowel sounds, soft, no peritoneal signs. Absent: distended, firm, guarding, tenderness - Extremities Exam Extremities exam: Present: warm, radial pulses palpable and symmetrical. Absent : calf tenderness, cyanotic, pedal edema - Expanded Upper Extremities Exam Elbow exam: Present: swelling, tenderness. Absent: erythema, normal inspection Forearm wrist exam: Present: swelling, tenderness. Absent: erythema, normal inspection Hand wrist exam: Present: erythema, swelling, tenderness. Absent: full ROM, normal inspection Hand L/R back image: 1 - Right and swollen with pitting edema, no fluctuance noted. Erythematous, small areas of drainage and prior sites of IVDU Neuro motor exam: Absent: fingers 2-5 abduction intact (Unable to abduct or adduct fingers/thumb due to increased swelling), thumb adduction intact, thumb IP flexion intact Vascular exam: Present: normal capillary refill, radial pulse right. Absent: vascular compromise - Neurological Exam Neurological exam: Present: CN II-XII intact, oriented X3, no focal deficits. Absent: pronater drift, facial droop, speech deficit - Skin Skin exam: Present: dry, intact Internal Medicine: Result - Labs CBC & Chem 7: 10/05/17 05:15 10/05/17 05:15 Labs: Short CBC 10/05/17 Range/Units 05:15 WBC 14.6 H (4.3-11.1) K/mcL Hgb 10.4 L (11.5-15.4) g/dL Hct 30.4 L (35.3-44.9) % Plt Count 224 (140-400) K/mcL Neutrophils # 10.1 H (1.6-8.9) K/mcL BMP 10/05/17 05:15 Sodium 137 Potassium 3.3 L Chloride 108 H Carbon Dioxide 23 BUN 9 Creatinine 0.49 L Glucose 100 Calcium 7.9 L Cardiac Enzymes 10/04/17 Range/Units 18:55 Troponin I < 0.03 (< 0.04) ng/mL - ABG Interpretation ABG results: ABG ABG pH 7.46 pH Units (7.32-7.45) H 10/02/17 20:47 ABG pCO2 29 mmHg (35-45) L 10/02/17 20:47 ABG pO2 72 mmHg (85-104) L 10/02/17 20:47 ABG O2 Saturation 95 % (95-98) 10/02/17 20:47 PT/INR, D-dimer PT 16.6 Seconds (9.4-12.1) H 10/02/17 08:41 Consult Discharge Plan - Plan Referrals: NONE,PCP [Primary Care Provider] -
[2017-10-05] MEDS: Nicotine 21 MG PATCH.TD24 TD SCH (12:51)
[2017-10-05] MEDS: *HR* OxyCODONE/APAP 7.5/325 TABLET PO PRN ×2 (12:51→18:57)
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
--- NOTE | 2017-10-05 13:56 | Electrocardiograph Report ---
[address] [place], [place] [address] Test Date: 2017-10-04 Pat Name: Clarissa Vargas Department: 113 Room: 3B36 Gender: F Pelt Dropper: : 1985 Requested By: Wyatt Noe Order Number: [id number] Reading MD: Anastasiia Evans Measurements Intervals [place] Rate: 117 P: 50 [place]: 158 QRS: 23 QRSD: 110 T: 41 QT: 434 QTc: 504 Interpretive Statements SINUS TACHYCARDIA POSSIBLE LEFT ATRIAL ENLARGEMENT INCOMPLETE RIGHT BUNDLE BRANCH BLOCK NONSPECIFIC ST & T-WAVE ABNORMALITY ABNORMAL RHYTHM ECG Electronically Signed On 10-05-2017 13:55:07 EDT by Anastasiia Evans
[2017-10-05] MEDS: Acetaminophen 325 MG TABLET PO PRN (16:15)
[2017-10-05] MEDS: Ketorolac 30 MG/ML VIAL IVP PRN (17:53)
[2017-10-06] MEDS: Ketorolac 30 MG/ML VIAL IVP PRN ×3 (00:03→13:43)
[2017-10-06] MEDS: *HR* OxyCODONE/APAP 7.5/325 TABLET PO PRN ×4 (01:02→20:36)
[2017-10-06 03:50] LABS: Basophils # 0.1 K/mcL (0.0-0.2); Basophils % 0.6 %; Eosinophils # 0.2 K/mcL (0.0-0.6); Eosinophils % 1.1 %; Hematocrit 30.5 % (35.3-44.9); Hemoglobin 10.3 g/dL (11.5-15.4); Immature Granulocytes % 10.4 % (0-4); Immature Platelets 3.1 % (1.1-6.1); Lymphocytes # 2.5 K/mcL (0.6-4.6); Lymphocytes % 14.2 %; Mean Corpuscular HGB Conc 33.8 g/dL (31.6-35.5); Mean Corpuscular Volume 80.1 fL (83.0-100.0); Mean Platelet Volume 9.7 fL (9.4-12.4); Monocytes # 1.7 K/mcL (0.0-1.3); Monocytes % 9.6 %; Neutrophils # 11.4 K/mcL (1.6-8.9); Platelet Count 247 K/mcL (140-400); Red Blood Count 3.81 M/mcL (3.82-4.97); Red Cell Distribution Width 15.6 % (11.5-14.5); Segmented Neutrophils % 64.1 %
[2017-10-06 04:15] LABS: BUN/Creatinine Ratio 20 (6-26); Blood Urea Nitrogen 11 mg/dL (6-20); Calcium 7.8 mg/dL (8.6-10.3); Carbon Dioxide 23 mEq/L (23-29); Chloride 107 mEq/L (98-107); Glucose 100 mg/dL (70-105); Osmolality,Calculated 283 (280-300); Potassium 2.9 mEq/L (3.5-5.1); Sodium 137 mEq/L (136-145); eGFR For African Americans > 60 (> 60); eGFR For Non-African Americans > 60 (> 60)
[2017-10-06] MEDS: tiZANidine 4 MG TABLET PO SCH ×3 (08:22→20:36)
[2017-10-06] MEDS: Nicotine 21 MG PATCH.TD24 TD SCH (08:22)
[2017-10-06] MEDS: Gabapentin 400 MG CAPSULE PO SCH ×4 (08:23→20:36)
--- NOTE | 2017-10-06 09:36 | Infectious Disease Progress No ---
Date of Encounter: 10/06/17 Time of Encounter: 09:34 - Assessment and Plan (1) Severe sepsis Current Visit: Yes Status: Acute Severe sepsis: The patient had four SIRS criteria plus lactic acidosis. Likely secondary to bacteremia and right hand cellulitis. Improved clinically, but patient continues to have tachycardia and worsening leukocytosis --> reactive from [place] vs. other. Low-grade fever overnight. Blood cultures drawn 10/02/17 are positive 2/2 for MRSA per PCR. Repeat blood cultures x 1 set drawn 10/05/17 (one set cancelled per lab staff). Repeat blood cultures x 2 sets now. (2) Bacteremia Current Visit: Yes Status: Acute Causative organism: MRSA. Source likely right hand cellulitis. Blood cultures drawn 10/02/17 are positive 2/2 sets for MRSA. Repeat blood cultures 10/06/17 x 1 set are pending (one set cancelled per lab or nursing staff). Complicated due to septic emboli in the lungs. No endocarditis stigmata noted on exam. The patient has one major and one minor Modified Wagner's criteria. TTE negative for vegetations. JERSEY negative. Repeat blood cultures x 2 sets now. Continue Vancomycin IV. Pharmacy to dose. Goal trough ~15. Duration of treatment depends on the clinical picture, but likely a total of 4 weeks from the first set of negative blood cultures. Monitor renal function and for drug toxicity and dose-adjust antibiotics. patient services rep to assist with discharge planning. Patient will need ECF/LTACH placement on discharge given history of IVDU. Avoid insertion of central venous access until repeat blood cultures are negative x 48 hours. (3) Cellulitis Current Visit: Yes Status: Acute Location: Right hand. Causative organism likely MRSA. MRI of the hand showed findings consistent with cellulitis and tenosynovitis, but no OM or abscess. Ortho consulted and following. No surgical intervention at this time. Eythema and ROM improved today, but new edema noted to the right forearm/elbow. May need to consider repeating imaging if leukocytosis continues to worsen. Continue antibiotics as above. Duration of treatment depends on the clinical picture, but she will require a prolonged course of IV antibiotics due to the complicated bacteremia. Wound care and activity per the ortho team. Qualifiers: Site of cellulitis: extremity Site of cellulitis of extremity: upper extremity Laterality: right Qualified Code(s): L03.113 - Cellulitis of right upper limb (4) Septic embolism Current Visit: Yes Status: Suspected Location: Bilateral lungs. Causative organism: MRSA. Likely secondary to bacteremia. S. pneumo and Legionella UAT negative. RIP negative. Continue antibiotics as above. (5) Altered mental status Current Visit: Yes Status: Resolved Likely secondary to drug use vs. narcotic pain medication given response to Narcan. CT head completed 10/02/17 was negative. Resolved. Qualifiers: Altered mental status type: unspecified Qualified Code(s): R41.82 - Altered mental status, unspecified (6) IVDU (intravenous drug user) Current Visit: Yes Status: Acute Known Hep C positive. HIV nonreactive. (7) Hepatitis C Current Visit: Yes Status: Acute Qualifiers: Viral hepatitis chronicity: chronic Hepatic coma status: without hepatic coma Qualified Code(s): B18.2 - Chronic viral hepatitis C - Subjective Interval history: Patient seen and examined. No acute events noted overnight. Patient states overall her hand feels better and is less red and swollen, but there is more swelling proximal, near the elbow. Denies fevers, chills, or rigors. Denies chest pain, but reports shortness of breath and increased difficulty getting a deep breath. She reports a moist cough, but is unable to expectorate anything. Denies nausea, vomiting, diarrhea, or constipation. Denies abdominal pain, urinary complaints or appetite changes. Reports chronic back pain at is at baseline. Denies oral thrush or other skin lesions. Infect Dis PN-Objective Data - Labs CBC & Chem 7: 10/06/17 03:53 10/06/17 03:30 Labs: Laboratory Results - last 24 hr 10/05/17 10/06/17 10/06/17 20:57 03:30 03:53 WBC 17.8 H RBC 3.81 L Hgb 10.3 L Hct 30.5 L MCV 80.1 L MCH 27.0 L MCHC 33.8 RDW 15.6 H Plt Count 247 MPV 9.7 Immature Gran % 10.4 H Seg Neutrophils % 64.1 Lymphocytes % 14.2 Monocytes % 9.6 Eosinophils % 1.1 Basophils % 0.6 Neutrophils # 11.4 H Lymphocytes # 2.5 Monocytes # 1.7 H Eosinophils # 0.2 Basophils # 0.1 Immature Plt Fraction 3.1 Sodium 137 Potassium 2.9 L Chloride 107 Carbon Dioxide 23 BUN 11 Creatinine 0.55 L Est GFR ( Amer) > 60 Est GFR (Non-Af Amer) > 60 BUN/Creatinine Ratio 20 Glucose 100 Calculated Osmolality 283 Lactic Acid 1.4 Calcium 7.8 L Cultures: Cultures 10/02/17 16:01 Legionella Antigen - Final Urine,Clean Catch Streptococcus pneumoniae Antigen (M - Final Serology 10/02/17 10/02/17 10/02/17 Range/Units 16:30 16:01 14:22 Urine Color Yellow (Yellow) Urine Clarity Clear (Clear) Urine pH 5.5 (5.0-8.0) pH Units Ur Specific [place] > 1.030 H (1.010-1.025) Urine Protein Trace (Neg-Trace) mg/dL Urine Glucose (UA) Normal (Normal) mg/dL Urine Ketones Negative (Negative) mg/dL Urine Blood Trace H (Negative) Urine Nitrite Negative (Negative) Urine Bilirubin Negative (Negative) Urine Urobilinogen Normal (Normal) mg/dL Ur Leukocyte Esterase Negative (Negative) Urine Microscopic RBC 0-3 (0-3) per hpf Urine Microscopic WBC 5-15 H (0-3) per hpf Ur Squamous Epith Cells Many H (None-Few) per lpf Urine Bacteria None Seen (None-Few) per hpf Hyaline Casts None Seen (None-Few) per lpf Ur Culture Indicated? NO (NO) Chlamy pneumoniae PCR Not Detected (Not Detect) Adenovirus (PCR) Not Detected (Not Detect) B. pertussis DNA (PCR) Not Detected (Not Detect) B.parapertussis DNA PCR Not Detected (Not Detect) Coronavirus OC43 (PCR) Not Detected (Not Detect) Coronavirus HKU1 (PCR) Not Detected (Not Detect) Coronavirus 229E (PCR) Not Detected (Not Detect) Coronavirus NL63 (PCR) Not Detected (Not Detect) HIV Ag/Ab Combo Qual Nonreactive (Nonreactive) Human Metapneumovir PCR Not Detected (Not Detect) Influenza A (H1) PCR Not Detected (Not Detect) Influ A (H1N1/09) PCR Not Detected (Not Detect) Influenza A (H3) PCR Not Detected (Not Detect) Influenza A Untype (PCR) Not Detected (Not Detect) Influenza Type B (PCR) Not Detected (Not Detect) M.pneumoniae DNA (PCR) Not Detected (Not Detect) Parainfluenza 1 (PCR) Not Detected (Not Detect) Parainfluenza 2 (PCR) Not Detected (Not Detect) Parainfluenza 3 (PCR) Not Detected (Not Detect) Parainfluenza 4 (PCR) Not Detected (Not Detect) RSV (PCR) Not Detected (Not Detect) Entero/Rhino (PCR) Not Detected (Not Detect) Exam - Constitutional Vitals: Temp Pulse Resp BP Pulse Ox 98.1 F 117 14 144/87 98 10/06/17 07:15 10/06/17 07:15 10/06/17 07:15 10/06/17 07:15 10/06/17 07:15 General appearance: average body habitus, cooperative, no acute distress - Head Head exam: Present: atraumatic, normal inspection, normocephalic - Eye Eye exam: Present: EOMI, normal appearance, PERRL Pupils: Present: normal accommodation - ENT ENT exam: Present: mucous membranes moist - Neck Neck exam: Present: normal inspection - Respiratory Respiratory exam: Present: CTAB. Absent: rales, respiratory distress, rhonchi, wheezes Additional comments: Poor inspiratory effort. - Cardiovascular Cardiovascular exam: Present: tachycardia. Absent: irregular rhythm - GI/Abdominal GI/Abdominal exam: Present: normal bowel sounds, soft. Absent: distended, tenderness - Extremities Exam Extremities exam: Present: joint swelling (right wrist), tenderness (right hand , forearm). Absent: pedal edema Additional comments: Right hand and wrist erythema improved. ROM improved. More edematous proximal near the right elbow. - Neurological Exam Neurological exam: Present: alert, oriented X3, no focal deficits - Psychiatric Psychiatric exam: Present: normal affect, normal mood - Skin Skin exam: Present: dry, intact, normal color, warm Consult Discharge Plan - Plan Referrals: NONE,PCP [Primary Care Provider] - - Attending Attestation I examined this patient and my medical decision-making was reviewed with the Resident Physician. I agree with the documented findings, disposition and treatment plan as described except to the extent set forth below.
[2017-10-06] MEDS ORDERED: Potassium Chloride 40 MEQ, Lidocaine 1% 2 ML in D5% in Water 500 ML IVPB ONE (12:14)
--- NOTE | 2017-10-06 13:54 | Pulmonology Consult Note ---
<Pete Toscano - Last Filed: 10/06/17 18:13> Date of Encounter: 10/06/17 Time of Encounter: 13:54 Assessment and Plan (1) Hemoptysis Current Visit: Yes Status: Acute Patient has had one episode of hemoptysis occurring today. She no previous hemoptysis before this. She is mildly short of breath besides all due to anxiety/PTSD and her not getting Xanax. She having no chest pains. CT angiogram was done approximately 2 days ago which results are shown below. Pulmonary embolism was not seen on chest CT. the hemoptysis most likely is due to be septic emboli. This is considered minor hemoptysis and does not qualify for needing bronchoscopy at this time is most likely source is due to septic emboli which will normalize once patient is treated with antibiotics. There is no need for anticoagulation at this time. We will continue to monitor the patient and see her tomorrow to be sure that there is no increasing of hemoptysis or worsening and may need a bronchoscopy in the future. If you have any further questions feel free to call the pulmonology team. 1. Pulmonary nodules as described. Considering patient's age, the distribution of lesions, the overall appearance of the lesions and presentation, these are most likely related to infectious process, autoimmune process or possibly vasculitis. Though not excluded based on the appearance alone, this would be exceedingly unusual appearance for neoplasia. Bronchoscopic evaluation may be useful. 2. Adenopathy in the right axilla, mediastinum and right hilum presumably related to the acute pulmonary process. 3. No pulmonary embolism. (2) Bacteremia Current Visit: Yes Status: Acute Blood cultures came back positive for MRSA. She is currently on vancomycin, Levaquin, clindamycin. Infectious disease is following the patient and this is their recommendation for antibiotic regimen. We will defer recommendations for bacteremia to the infectious disease team (3) Septic embolism Current Visit: Yes Status: Suspected Patient could have septic emboli that are causing the nodules on the CTA chest. JERSEY had no vegetations and was negative for endocarditis. Patient is currently getting broad-spectrum antibiotics including vancomycin, Levaquin, clindamycin per infectious disease based on positive MRSA blood cultures. We will refer this to ID. (4) Cellulitis Current Visit: Yes Status: Acute Cellulitis and hand does seem to be getting better based on what patient says. Fluids seems to be spreading up the arm. There is still no streaking. Fevers have decreased recently. Antibiotics currently are on including vancomycin, Levaquin, clindamycin. Orthopedics is following the patient but says there is no surgical intervention needed at this time. Qualifiers: Site of cellulitis: extremity Site of cellulitis of extremity: upper extremity Laterality: right Qualified Code(s): L03.113 - Cellulitis of right upper limb (5) IVDU (intravenous drug user) Current Visit: Yes Status: Acute Patient is a previous IV drug abuser. She does use heroin daily. She says that she tries use clean needles but normally is unable to find them. Patient states for now she does not plan on stopping. (6) Severe sepsis Current Visit: Yes Status: Acute Patient does meet sepsis criteria including a leukocytosis, fever and a source of infection. Patient is not in shock at this time blood pressures have been stable at 140/80. There is no need for pressors at this time. Patient is arty on antibiotics which should alleviate the sepsis. We will continue to monitor vital signs be sure patient does not go septic shock and need pressor treatment (7) DVT prophylaxis Current Visit: Yes Status: Acute Subcutaneous heparin History of Present Illness Consult date: 10/06/17 Requesting physician: Heather Mena Reason for consult: other (Hemoptysis) Chief complaint: Right hand cellulitis History of present illness: 32-year-old female presented to the emergency department on 10/02/17 complaining of cellulitis and swollen right hand. Patient is an IV drug abuser of heroin. Patient states she is a daily user and she noticed and was swelling and continue to use dirty needles. In the emergency department they did get blood cultures and also got CT of both the hand as well as the chest to rule out any type of endocarditis. CT hand showed infection but no area to have incision and drainage done. Orthopedics is following the patient. CT angiogram of the chest did show lung nodules that possibly could be due to infectious septic emboli. JERSEY was also ordered which showed no signs of endocarditis or vegetations on the leaflets. Infectious disease is also following the patient after patient's blood cultures came back positive for MRSA. She is currently on vancomycin, Levaquin and clindamycin per infectious diseases recommendations. The did have repeat blood cultures pending at this time. Pulmonology was consulted today due to patient having an episode of hemoptysis. This had not been occurring before. Patient does not have any previous pulmonary history. She has never diagnosed with asthma or COPD. Mother does have COPD but is secondary to prolonged lifetime smoking. Patient does say she is a half a pack a day smoker for the previous 5 years which makes her a 2.5 pack year history. She says she has been short of breath her entire visit here B says is mainly due to her not having her normal anxiety medications including Xanax. She says for some reason the doctors or withholding them. She says normally this occurs when she does not take her Xanax. She did have any chest pain. Patient otherwise not having any complaints. Past Med Surg Social Fam HX - Past Medical History Medical history: hepatitis, migraine Psychiatric history: no psych history - Past Surgical History Surgical History: non-contributory, other - Social History Smoking Status: Current every day smoker Packs per day: 1.0 Smokeless Tobacco Status: No Alcohol use: none Drug use: marijuana - Family History Mother History Unknown: Yes Father History Unknown: Yes Medications and Allergies ALPRAZolam [Xanax 1 MG Tablet] 1 mg PO QID 10/02/17 [History] Gabapentin [Neurontin] 800 mg PO QID 10/02/17 [History] Naproxen Sodium [Aleve] 220 mg PO DAILY PRN 10/02/17 [History] Quetiapine Fumarate [SEROquel] 100 mg PO HS 10/02/17 [History] Tizanidine HCl 2 mg PO TID 10/02/17 [History] 3 Allergy/AdvReac Type Severity Reaction Status Date / Time Cefaclor [From [facility]] Allergy Hives Verified 10/02/17 08:52 All Systems: The remainder of the systems were reviewed and are negative - Constitutional Constitutional: chills, fatigue, fever(s), no daytime sleepiness, no excessive sweating, no headache(s), no weight gain, no weight loss - EENT Eyes: no loss of vision, no photophobia Nose, mouth and throat: no headache(s), no hoarseness, no nasal congestion, no neck pain, no sinus pain, no sinus pressure, no sore throat, no throat swelling - Cardiovascular Cardiovascular: dyspnea, no chest pain, no dyspnea on exertion, no edema, no irregular heart rhythm, no leg edema, no palpitations, no pedal edema, no syncope - Respiratory Respiratory: dyspnea, hemoptysis, no cough, no dyspnea on exertion, no wheezing , no snoring, no stridor, no pain on inspirtation, no chest congestion, no excessive phlegm production, no change in phlegm color, no pain with cough - Gastrointestinal Gastrointestinal: no abdominal pain, no diarrhea, no hematemesis, no nausea, no vomiting - Genitourinary Genitourinary: no difficulty urinating - Musculoskeletal Musculoskeletal: no joint pain, no arthralgias, no back pain - Integumentary Integumentary: no erythema, no rash - Neurological Neurological: no dizziness, no headache(s), no numbness, no paresthesias, no syncope, no weakness - Psychiatric Psychiatric: anxiety, panic attacks Physical Examination Vital Signs: Vital Signs, Last 4 Hours Temp Pulse Resp BP Pulse Ox 10/06/17 11:02 98.5 F 109 14 138/77 96 General appearance: no acute distress, alert, agitated Eyes: nonicteric ENT: oropharynx moist Neck: supple Effort: normal Auscultation: bilateral: clear Cardiovascular: regular rate and rhythm Gastrointestinal: normoactive bowel sounds, soft, non-distended Integumentary: normal Extremities: no cyanosis, no clubbing, edema (Right sided edema and swelling with erythema going up near the right elbow all her throughout the hand. No signs of streaking. No noticeable areas of fluctuance.) Musculoskeletal: no deformities, ROM normal normal mental status, non-focal exam, pupils equal and round Results - Laboratory Findings CBC and BMP: 10/06/17 03:53 10/06/17 03:30 ABG ABG pH 7.46 pH Units (7.32-7.45) H 10/02/17 20:47 ABG pCO2 29 mmHg (35-45) L 10/02/17 20:47 ABG pO2 72 mmHg (85-104) L 10/02/17 20:47 ABG O2 Saturation 95 % (95-98) 10/02/17 20:47 PT/INR, D-dimer PT 16.6 Seconds (9.4-12.1) H 10/02/17 08:41 Abnormal lab findings: Abnormal lab results WBC 17.8 K/mcL (4.3-11.1) H 10/06/17 03:53 RBC 3.81 M/mcL (3.82-4.97) L 10/06/17 03:53 Hgb 10.3 g/dL (11.5-15.4) L 10/06/17 03:53 Hct 30.5 % (35.3-44.9) L 10/06/17 03:53 MCV 80.1 fL (83.0-100.0) L 10/06/17 03:53 MCH 27.0 pg (28.0-33.3) L 10/06/17 03:53 RDW 15.6 % (11.5-14.5) H 10/06/17 03:53 Immature Gran % 10.4 % (0-4) H 10/06/17 03:53 Band Neutrophils % 42.0 % (0-4) H 10/03/17 04:00 Metamyelocytes % 4.0 % (0) H 10/03/17 04:00 Neutrophils # 11.4 K/mcL (1.6-8.9) H 10/06/17 03:53 Monocytes # 1.7 K/mcL (0.0-1.3) H 10/06/17 03:53 Nucleated RBCs/100 WBC 0.1 /100 WBC (0) H 10/05/17 05:15 Reactive Lymphocytes Present (Not Present) A 10/04/17 04:00 Hypochromasia Present (Not Present) A 10/05/17 05:15 PT 16.6 Seconds (9.4-12.1) H 10/02/17 08:41 ABG pH 7.46 pH Units (7.32-7.45) H 10/02/17 20:47 ABG pCO2 29 mmHg (35-45) L 10/02/17 20:47 ABG pO2 72 mmHg (85-104) L 10/02/17 20:47 Potassium 2.9 mEq/L (3.5-5.1) L 10/06/17 03:30 Creatinine 0.55 mg/dL (0.60-1.20) L 10/06/17 03:30 POC Glucose 102 mg/dL (70-99) H 10/03/17 08:01 Calcium 7.8 mg/dL (8.6-10.3) L 10/06/17 03:30 Total Bilirubin 1.1 mg/dL (0.3-1.0) H 10/02/17 08:14 Globulin 3.7 g/dL (2.4-3.5) H 10/02/17 08:14 Albumin/Globulin Ratio 0.9 (1.1-2.2) L 10/02/17 08:14 Ur Specific [place] > 1.030 (1.010-1.025) H 10/02/17 16:01 Urine Blood Trace (Negative) H 10/02/17 16:01 Urine Microscopic WBC 5-15 per hpf (0-3) H 10/02/17 16:01 Ur Squamous Epith Cells Many per lpf (None-Few) H 10/02/17 16:01 Urine Opiates Screen Positive ng/mL (Aggram=707) H 10/02/17 16:01 U Marijuana (THC) Screen Positive ng/mL (Cutoff = 50) H 10/02/17 16:01 Staphylococcus sp PCR DETECTED (Not Detect) A 10/02/17 08:56 Staph aureus (PCR) DETECTED (Not Detect) A 10/02/17 08:56 mecA-Methicil Res Gene DETECTED (Not Detect) A 10/02/17 08:56 - Diagnostic Findings CT scan - chest: report reviewed, image reviewed - Clinical Findings Intake & Output: Intake & Output 10/05/17 10/06/17 10/06/17 23:59 07:59 15:59 Intake Total 600 / 600 Balance 600 / 600 Weight 69.2 kg Consult Discharge Plan - Plan Referrals: NONE,PCP [Primary Care Provider] - <Slava Waller - Last Filed: 10/07/17 10:44> Date of Encounter: 10/07/17 All Systems: The remainder of the systems were reviewed and are negative Physical Examination Vital Signs: Vital Signs, Last 4 Hours Temp Pulse Resp BP Pulse Ox 10/06/17 16:13 98.7 F 105 16 148/86 93 10/06/17 15:00 99 F 113 14 158/85 96 Results - Laboratory Findings CBC and BMP: 10/07/17 05:20 10/07/17 05:20 ABG ABG pH 7.46 pH Units (7.32-7.45) H 10/02/17 20:47 ABG pCO2 29 mmHg (35-45) L 10/02/17 20:47 ABG pO2 72 mmHg (85-104) L 10/02/17 20:47 ABG O2 Saturation 95 % (95-98) 10/02/17 20:47 PT/INR, D-dimer PT 16.6 Seconds (9.4-12.1) H 10/02/17 08:41 Abnormal lab findings: Abnormal lab results WBC 17.8 K/mcL (4.3-11.1) H 10/06/17 03:53 RBC 3.81 M/mcL (3.82-4.97) L 10/06/17 03:53 Hgb 10.3 g/dL (11.5-15.4) L 10/06/17 03:53 Hct 30.5 % (35.3-44.9) L 10/06/17 03:53 MCV 80.1 fL (83.0-100.0) L 10/06/17 03:53 MCH 27.0 pg (28.0-33.3) L 10/06/17 03:53 RDW 15.6 % (11.5-14.5) H 10/06/17 03:53 Immature Gran % 10.4 % (0-4) H 10/06/17 03:53 Band Neutrophils % 42.0 % (0-4) H 10/03/17 04:00 Metamyelocytes % 4.0 % (0) H 10/03/17 04:00 Neutrophils # 11.4 K/mcL (1.6-8.9) H 10/06/17 03:53 Monocytes # 1.7 K/mcL (0.0-1.3) H 10/06/17 03:53 Nucleated RBCs/100 WBC 0.1 /100 WBC (0) H 10/05/17 05:15 Reactive Lymphocytes Present (Not Present) A 10/04/17 04:00 Hypochromasia Present (Not Present) A 10/05/17 05:15 PT 16.6 Seconds (9.4-12.1) H 10/02/17 08:41 ABG pH 7.46 pH Units (7.32-7.45) H 10/02/17 20:47 ABG pCO2 29 mmHg (35-45) L 10/02/17 20:47 ABG pO2 72 mmHg (85-104) L 10/02/17 20:47 Potassium 2.9 mEq/L (3.5-5.1) L 10/06/17 03:30 Creatinine 0.55 mg/dL (0.60-1.20) L 10/06/17 03:30 POC Glucose 102 mg/dL (70-99) H 10/03/17 08:01 Calcium 7.8 mg/dL (8.6-10.3) L 10/06/17 03:30 Total Bilirubin 1.1 mg/dL (0.3-1.0) H 10/02/17 08:14 Globulin 3.7 g/dL (2.4-3.5) H 10/02/17 08:14 Albumin/Globulin Ratio 0.9 (1.1-2.2) L 10/02/17 08:14 Ur Specific [place] > 1.030 (1.010-1.025) H 10/02/17 16:01 Urine Blood Trace (Negative) H 10/02/17 16:01 Urine Microscopic WBC 5-15 per hpf (0-3) H 10/02/17 16:01 Ur Squamous Epith Cells Many per lpf (None-Few) H 10/02/17 16:01 Urine Opiates Screen Positive ng/mL (Lucgjf=966) H 10/02/17 16:01 U Marijuana (THC) Screen Positive ng/mL (Cutoff = 50) H 10/02/17 16:01 Staphylococcus sp PCR DETECTED (Not Detect) A 10/02/17 08:56 Staph aureus (PCR) DETECTED (Not Detect) A 10/02/17 08:56 mecA-Methicil Res Gene DETECTED (Not Detect) A 10/02/17 08:56 - Clinical Findings Intake & Output: Intake & Output 10/06/17 10/06/17 10/06/17 07:59 15:59 23:59 Intake Total 420 / 420 Balance 420 / 420 Weight 69.2 kg 65 kg - Attending Attestation I examined this patient and my medical decision-making was reviewed with the Resident Physician. I agree with the documented findings, disposition and treatment plan as described except to the extent set forth below. Patient seen and examined. Labs, radiology, chart personally reviewed. 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 I have advised her and also the nurse if she started to have more hemoptysis then she needs to be nothing by mouth for bronchoscopy and patient understand that. Cardiovascular: stable GI: Nutrition per dietary and GI prophylaxis per routine Heme: DVT prophylaxis per routine ID: Infectious disease following Renal; urine out put and renal funtion reviewed Thank you for consultation
--- NOTE | 2017-10-06 14:20 | Internal Med Progress Note ---
Date of Encounter: 10/06/17 Time of Encounter: 12:00 - Assessment and plan (1) Cellulitis Current Visit: Yes Status: Acute Assessment and plan: Secondary to IV drug use blood cultures are growing gram-positive cocci MRSA- infectious disease has been consult it and continue with blood cultures per the recommendation It appears that the swelling has increased and extended up above elbow, she is able to move her fingers slightly. She has sluggish cap refill Doppler pulses Orthopedics following did update one changes-per MRI-completed 10/02/17 no drainable abscess no osteomyelitis no joint effusion diffuse soft tissue edema- pulse checks per nursing Continue to elevate extremity Duration of treatment depends on clinical picture we will defer this to infectious disease at this time Qualifiers: Site of cellulitis: extremity Site of cellulitis of extremity: upper extremity Laterality: right Qualified Code(s): L03.113 - Cellulitis of right upper limb (2) IVDU (intravenous drug user) Current Visit: Yes Status: Acute Assessment and plan: History of heroin use-HIV status nonreactive Cellulitis of right hand/forearm due to IV drug use infectious disease following /orthopedic following appreciate recommendations (3) Septic embolism Current Visit: Yes Status: Suspected Assessment and plan: Most likely MRSA secondary to bacteremia CTA of chest 10/02/2017 with results as follows 1. Pulmonary nodules as described. Considering patient's age, the distribution of lesions, the overall appearance of the lesions and presentation, these are most likely related to infectious process, autoimmune process or possibly vasculitis. Though not excluded based on the appearance alone, this would be exceedingly unusual appearance for neoplasia. Bronchoscopic evaluation may be useful. 2. Adenopathy in the right axilla, mediastinum and right hilum presumably related to the acute pulmonary process. 3. No pulmonary embolism. Patient did have some hemoptysis today continues to express tachypnea requiring oxygen supplementation 4 L oxygen saturations 9496% Strep pneumo and legionella UA T negative RIP negative We will continue with antibiotic-vancomycin and Levaquin and clindamycin recommendations per infectious disease TTE completed with no evidence vegetations (4) Severe sepsis Current Visit: Yes Status: Acute Assessment and plan: Presenting with tachycardia and leukocytosis, fever source of infection-most likely secondary to bacteremia and right hand cellulitis Continues to have tachycardia and worsening leukocytosis Levaquin and clindamycin and vancomycin pharmacy to dose Blood cultures drawn 10/02/17 are +2/2 for MRSA per PCR-infectious disease ordered repeat blood cultures 10/05/17 once that was canceled per laboratory. Repeat blood cultures 2 today per ID Continue with IV antibiotics per ID recommendations- (5) Hepatitis C Current Visit: Yes Status: Acute Assessment and plan: History of hepatitis C- IV drug use Qualifiers: Viral hepatitis chronicity: chronic Hepatic coma status: without hepatic coma Qualified Code(s): B18.2 - Chronic viral hepatitis C (6) Leukocytosis Current Visit: Yes Status: Acute Assessment and plan: Leukocytosis secondary to cellulitis and bacteremia white count slightly elevated today continue with current antibiotics Infectious disease has been consulted Qualifiers: Leukocytosis type: unspecified Qualified Code(s): D72.829 - Elevated white blood cell count, unspecified (7) Drug overdose Current Visit: Yes Status: Suspected Assessment and plan: Previous records indicate patient required Narcan 2 due to altered mental status and decreased level of consciousness. There was some suspicion surrounding visitors -possibly giving patient medication-see note 10/04/17 we will continue to monitor closely Qualifiers: Encounter type: initial encounter Injury intent: undetermined intent Qualified Code(s): T50.904A - Poisoning by unspecified drugs, medicaments and biological substances, undetermined, initial encounter (8) Hypokalemia Current Visit: Yes Status: Acute Assessment and plan: Potassium was 2.9 today. Patient has been tachycardic we will replace and monitor-continuous cardiac monitoring (9) Hemoptysis Current Visit: Yes Status: Acute Assessment and plan: Patient did have episode of hemoptysis today-I did consult pulmonology who felt this was minor hemoptysis and did not qualify for bronchoscopy at this time- pulmonology felt the source may be septic emboli if worsened patient may need bronchoscopy in the future we will continue to monitor (10) DVT prophylaxis Current Visit: Yes Status: Acute Assessment and plan: Continue SCDs - Time Spent With Patient Total time spent is greater than 50% in coordination of care (as documented) at patient's floor/unit and/or counseling patient: - Subjective Interval history: This patient is new to me I did review medical records. I did examine patient at bedside. I did discuss this case with Dr. Blanco, concerned about increase in swelling which has extended up and arm. I did notify DR. Nuñez of changes- I did speak with his nurse Nav- updated him on patient's condition -patient does have increased swelling she does have Doppler pulses with decreased cap Refill extremities are warm-I also reviewed this case with , I will transfer the patient to 2 [facility]. for closer observation - Constitutional Vitals: Temp Pulse Resp BP Pulse Ox 98.5 F 109 14 138/77 96 10/06/17 11:02 10/06/17 11:02 10/06/17 11:02 10/06/17 11:02 10/06/17 11:02 General appearance: Present: A&O X 3 - Head Head exam: Present: atraumatic, normocephalic - Eye Eye exam: Present: PERRL, conjuntiva pink, sclera anicteric Pupils: Present: PERRL - Neck Neck exam general surgery: Present: supple, trachea midline. Absent: lymphadenopathy - Respiratory Respiratory exam: Present: CTAB. Absent: accessory muscle use, rales, rhonchi, wheezes - Cardiovascular Cardiovascular exam: Present: RRR, +S1, +S2. Absent: diastolic murmur, gallop, rubs, systolic murmur - GI/Abdominal GI/Abdominal exam: Present: normal bowel sounds, soft, no peritoneal signs. Absent: distended, tenderness - Extremities Exam Extremities exam: Present: warm, radial pulses palpable and symmetrical. Absent : calf tenderness, cyanotic, pedal edema - Neurological Exam Neurological exam: Present: CN II-XII intact, oriented X3, no focal deficits. Absent: pronater drift, facial droop, speech deficit - Skin Skin exam: Present: dry, intact Internal Medicine: Result - Labs CBC & Chem 7: 10/06/17 03:53 10/06/17 03:30 Labs: Short CBC 10/06/17 Range/Units 03:53 WBC 17.8 H (4.3-11.1) K/mcL Hgb 10.3 L (11.5-15.4) g/dL Hct 30.5 L (35.3-44.9) % Plt Count 247 (140-400) K/mcL Neutrophils # 11.4 H (1.6-8.9) K/mcL BMP 10/06/17 03:30 Sodium 137 Potassium 2.9 L Chloride 107 Carbon Dioxide 23 BUN 11 Creatinine 0.55 L Glucose 100 Calcium 7.8 L - ABG Interpretation ABG results: ABG ABG pH 7.46 pH Units (7.32-7.45) H 10/02/17 20:47 ABG pCO2 29 mmHg (35-45) L 10/02/17 20:47 ABG pO2 72 mmHg (85-104) L 10/02/17 20:47 ABG O2 Saturation 95 % (95-98) 10/02/17 20:47 PT/INR, D-dimer PT 16.6 Seconds (9.4-12.1) H 10/02/17 08:41 Consult Discharge Plan - Plan Referrals: NONE,PCP [Primary Care Provider] -
[2017-10-06] MEDS: ALPRAZolam 1 MG TABLET PO SCH ×2 (15:32→20:37)
[2017-10-06] MEDS ORDERED: *HR* Heparin 5,000 UNIT/ML VIAL SQ SCH (18:00)
--- NOTE | 2017-10-06 19:09 | Orthopedics Progress Note ---
Date of Encounter: 10/06/17 Time of Encounter: 19:06 Subjective Principal diagnosis: Right upper extremity infection Interval history: 10/03/2017. Patient states that the forearm is more swollen and painful. Having dyspnea. Having difficulty with moving fingers well. Vital signs are stable. Patient is afebrile. White blood cell count is improved. The hand shows pitting edema. No discrete abscess or fluctuant area. Several small areas on the dorsum of the hand where suspect there were skin pops are draining serous fluid. Forearm is somewhat edematous. Overall I think the arm is improved. MRI was reviewed last night. No discrete abscess or loculated fluid cavity was noted. Impression: Right upper extremity infection secondary to IVDA. Recommendation: Discussed with the patient that I do not see anything that requires surgical intervention at this time. Recommend that she maintain elevation of the extremity and work aggressively at trying to muscle pump the forearm and work range of motion of the fingers. 10/04/2017. Patient is feeling better today. She is noticing more motion and less pain in the fingers. Vital signs are stable. Patient is currently afebrile though she did have a temperature above 100.3 earlier. exam reveals less edema & erythema in hand & forearm. pitting edema in hand without fluctuance. Able to move her fingers better. WBC 15.5. PLT 205 blood cultures positive for gram-positive cocci. Impression:gram-positivecocci bacteremia with right upper extremity infection, probable MRSA REcommendation: continue IV Abx. Observer RUE. No indication for formal I&D at this time. . Patient is feeling better in regards to her right arm today. She states she has improved function in her fingers. Denies neurovascular complaints. Noticing more swelling in the upper arm as anticipated with elevation of the hand. Patient is afebrile. Examination of the right upper extremity reveals erythema and edema in the upper arm and the forearm. Movement is markedly improved with much less pain. Hand continues to show a fair amount of swelling and distention. There are several small areas of serous drainage. Patient states that she had an area of purulent drainage on the dorsum. There clinically may be some fluctuance on the dorsum. No definable abscess at this time. Impression: MRSA bacteremia with right upper extremity infection Recommendation: At this time would continue with intravenous antibiotics and supportive care. Will reevaluate the patient in 24 hours. If there is evidence of an evolving abscess will need incision and drainage. Patient is high risk for surgical intervention, discussed with the patient if needed would recommend this be preferentially done at bedside rather with the stressing concerns with anesthesia. Objective Vital signs: Vital Signs Temp Pulse Resp BP Pulse Ox 10/06/17 16:13 98.7 F 105 16 148/86 93 10/06/17 15:00 99 F 113 14 158/85 96 10/06/17 11:02 98.5 F 109 14 138/77 96 10/06/17 07:15 98.1 F 117 14 144/87 98 10/06/17 03:34 98.6 F 111 20 136/80 94 10/05/17 23:01 98.3 F 99 16 119/76 94 Intake and Output 10/06/17 10/06/17 10/06/17 07:59 15:59 23:59 Intake Total 420 / 420 Balance 420 / 420 Intake: Oral 420 / 420 Other: Weight 69.2 kg 65 kg Patient Weight 10/06/17 23:59 Weight 65 kg - Labs CBC & BMP: 10/06/17 03:53 10/06/17 03:30 Labs: Abnormal lab results WBC 17.8 K/mcL (4.3-11.1) H 10/06/17 03:53 RBC 3.81 M/mcL (3.82-4.97) L 10/06/17 03:53 Hgb 10.3 g/dL (11.5-15.4) L 10/06/17 03:53 Hct 30.5 % (35.3-44.9) L 10/06/17 03:53 MCV 80.1 fL (83.0-100.0) L 10/06/17 03:53 MCH 27.0 pg (28.0-33.3) L 10/06/17 03:53 RDW 15.6 % (11.5-14.5) H 10/06/17 03:53 Immature Gran % 10.4 % (0-4) H 10/06/17 03:53 Band Neutrophils % 42.0 % (0-4) H 10/03/17 04:00 Metamyelocytes % 4.0 % (0) H 10/03/17 04:00 Neutrophils # 11.4 K/mcL (1.6-8.9) H 10/06/17 03:53 Monocytes # 1.7 K/mcL (0.0-1.3) H 10/06/17 03:53 Nucleated RBCs/100 WBC 0.1 /100 WBC (0) H 10/05/17 05:15 Reactive Lymphocytes Present (Not Present) A 10/04/17 04:00 Hypochromasia Present (Not Present) A 10/05/17 05:15 PT 16.6 Seconds (9.4-12.1) H 10/02/17 08:41 ABG pH 7.46 pH Units (7.32-7.45) H 10/02/17 20:47 ABG pCO2 29 mmHg (35-45) L 10/02/17 20:47 ABG pO2 72 mmHg (85-104) L 10/02/17 20:47 Potassium 2.9 mEq/L (3.5-5.1) L 10/06/17 03:30 Creatinine 0.55 mg/dL (0.60-1.20) L 10/06/17 03:30 POC Glucose 102 mg/dL (70-99) H 10/03/17 08:01 Calcium 7.8 mg/dL (8.6-10.3) L 10/06/17 03:30 Total Bilirubin 1.1 mg/dL (0.3-1.0) H 10/02/17 08:14 Globulin 3.7 g/dL (2.4-3.5) H 10/02/17 08:14 Albumin/Globulin Ratio 0.9 (1.1-2.2) L 10/02/17 08:14 Ur Specific [place] > 1.030 (1.010-1.025) H 10/02/17 16:01 Urine Blood Trace (Negative) H 10/02/17 16:01 Urine Microscopic WBC 5-15 per hpf (0-3) H 10/02/17 16:01 Ur Squamous Epith Cells Many per lpf (None-Few) H 10/02/17 16:01 Urine Opiates Screen Positive ng/mL (Euqmcc=086) H 10/02/17 16:01 U Marijuana (THC) Screen Positive ng/mL (Cutoff = 50) H 10/02/17 16:01 Staphylococcus sp PCR DETECTED (Not Detect) A 10/02/17 08:56 Staph aureus (PCR) DETECTED (Not Detect) A 10/02/17 08:56 mecA-Methicil Res Gene DETECTED (Not Detect) A 10/02/17 08:56 Consult Discharge Plan - Plan Referrals: NONE,PCP [Primary Care Provider] -
[2017-10-06] MEDS ORDERED: *HR* Heparin 5,000 UNIT/ML VIAL IVP PRN ×2 (20:15)
[2017-10-06] MEDS ORDERED: *HR* Heparin 5,000 UNIT/ML VIAL IVP ONE (20:15)
[2017-10-06 21:02] LABS: Hematocrit 30.1 % (35.3-44.9); Hemoglobin 10.2 g/dL (11.5-15.4); Mean Corpuscular HGB Conc 33.9 g/dL (31.6-35.5); Mean Corpuscular Hemoglobin 27.2 pg (28.0-33.3); Mean Corpuscular Volume 80.3 fL (83.0-100.0); Mean Platelet Volume 9.9 fL (9.4-12.4); Platelet Count 273 K/mcL (140-400); Red Blood Count 3.75 M/mcL (3.82-4.97); Red Cell Distribution Width 15.7 % (11.5-14.5)
[2017-10-06 21:08] LABS: INR 1.4; Prothrombin Time 15.4 Seconds (9.4-12.1)
[2017-10-06 21:10] LABS: Activated Partial Thrombo Time 30.1 Seconds (26.0-36.0)
[2017-10-06] MEDS: Heparin 25,000 UNIT/500 ML D5W 25,000 UNIT/500 ML BAG IVC SCH (22:55)
[2017-10-07] MEDS: *HR* OxyCODONE/APAP 7.5/325 TABLET PO PRN ×3 (02:42→15:56)
[2017-10-07 05:48] LABS: Basophils # 0.1 K/mcL (0.0-0.2); Basophils % 0.5 %; Eosinophils # 0.2 K/mcL (0.0-0.6); Eosinophils % 0.7 %; Hematocrit 28.9 % (35.3-44.9); Hemoglobin 9.7 g/dL (11.5-15.4); Lymphocytes # 2.8 K/mcL (0.6-4.6); Lymphocytes % 11.9 %; Mean Corpuscular HGB Conc 33.6 g/dL (31.6-35.5); Mean Corpuscular Hemoglobin 26.8 pg (28.0-33.3); Mean Corpuscular Volume 79.8 fL (83.0-100.0); Mean Platelet Volume 9.8 fL (9.4-12.4); Monocytes # 1.7 K/mcL (0.0-1.3); Monocytes % 7.1 %; Neutrophils # 15.9 K/mcL (1.6-8.9); Platelet Count 300 K/mcL (140-400); Red Blood Count 3.62 M/mcL (3.82-4.97); Red Cell Distribution Width 15.6 % (11.5-14.5); Segmented Neutrophils % 67.8 %
[2017-10-07 05:58] LABS: BUN/Creatinine Ratio 13 (6-26); Blood Urea Nitrogen 6 mg/dL (6-20); Calcium 7.5 mg/dL (8.6-10.3); Carbon Dioxide 25 mEq/L (23-29); Chloride 109 mEq/L (98-107); Glucose 91 mg/dL (70-105); Osmolality,Calculated 283 (280-300); Potassium 3.2 mEq/L (3.5-5.1); Sodium 138 mEq/L (136-145); eGFR For African Americans > 60 (> 60); eGFR For Non-African Americans > 60 (> 60)
[2017-10-07 06:18] LABS: Toxic Granulation Present (Not Present)
[2017-10-07 06:19] LABS: Hypochromasia Present (Not Present); Microcytosis Present (Not Present); Platelet Estimate Normal (Normal)
--- NOTE | 2017-10-07 07:26 | Pulmonology Progress Note ---
<Pete Toscano - Last Filed: 10/07/17 12:44> Date of Encounter: 10/07/17 Time of Encounter: 07:26 Assessment and Plan (1) Hemoptysis Current Visit: Yes Status: Acute Patient has had one episode of hemoptysis occurring yesterday. She no previous hemoptysis before this. She is mildly short of breath besides all due to anxiety/PTSD and her not getting Xanax. She having no chest pains. CT angiogram was done approximately 2 days ago which results are shown below. Pulmonary embolism was not seen on chest CT. the hemoptysis most likely is due to be septic emboli. This is considered minor hemoptysis and does not qualify for needing bronchoscopy at this time is most likely source is due to septic emboli which will normalize once patient is treated with antibiotics. It was noted yesterday that patient does have a blood clot in her basilic vein. Due to this the primary team did start heparin. If the hemoptysis is coming from pulmonary embolism the treatment will be anticoagulation with heparin so that is arty being treated at this time. Patient did not have any more hemoptysis since the episode yesterday. There is very low likelihood the patient does need bronchoscopy as this most likely is due to her septic embolus which are getting better after she has been on antibiotics. Patient should completely resolved all his hemoptysis. There is no other pulmonary [place] at this time. Pulmonology is signing off, it hemoptysis returns feel free to reconsult us and we will consider bronchoscopy If you have any further questions feel free to call the pulmonology team. 1. Pulmonary nodules as described. Considering patient's age, the distribution of lesions, the overall appearance of the lesions and presentation, these are most likely related to infectious process, autoimmune process or possibly vasculitis. Though not excluded based on the appearance alone, this would be exceedingly unusual appearance for neoplasia. Bronchoscopic evaluation may be useful. 2. Adenopathy in the right axilla, mediastinum and right hilum presumably related to the acute pulmonary process. 3. No pulmonary embolism. (2) Bacteremia Current Visit: Yes Status: Acute Blood cultures came back positive for MRSA. She is currently on vancomycin, Levaquin, clindamycin. Infectious disease is following the patient and this is their recommendation for antibiotic regimen. We will defer recommendations for bacteremia to the infectious disease team (3) Septic embolism Current Visit: Yes Status: Suspected Patient could have septic emboli that are causing the nodules on the CTA chest. [place] had no vegetations and was negative for endocarditis. Patient is currently getting broad-spectrum antibiotics including vancomycin, Levaquin, clindamycin per infectious disease based on positive MRSA blood cultures. We will refer this to ID. (4) Cellulitis Current Visit: Yes Status: Acute Cellulitis and hand does seem to be getting better based on what patient says. Fluids seems to be spreading up the arm. There is still no streaking. Fevers have decreased recently. Antibiotics currently are on including vancomycin, Levaquin Orthopedics is following the patient but says there is no surgical intervention needed at this time. Qualifiers: Site of cellulitis: extremity Site of cellulitis of extremity: upper extremity Laterality: right Qualified Code(s): L03.113 - Cellulitis of right upper limb (5) IVDU (intravenous drug user) Current Visit: Yes Status: Acute History of heroin use-HIV status nonreactive Cellulitis of right hand/forearm due to IV drug use infectious disease following /orthopedic following appreciate recommendations (6) Severe sepsis Current Visit: Yes Status: Acute Patient does meet sepsis criteria including a leukocytosis, fever and a source of infection. Patient is not in shock at this time blood pressures have been stable at 140/80. There is no need for pressors at this time. Patient is arty on antibiotics which should alleviate the sepsis. We will continue to monitor vital signs be sure patient does not go septic shock and need pressor treatment (7) DVT prophylaxis Current Visit: Yes Status: Acute Subcutaneous heparin Subjective Principal diagnosis: Right upper extremity infection Interval history: Patient had no acute overnight events. She had no hemoptysis overnight. The only hemolysis she had was one to 2 times yesterday which was very mild. Overall patient says her breathing is getting much better getting much easier. Patient states overall she does feel much better now. There were no other complaints. Objective PUL Vital signs: Last Vital Signs Temp 97.7 F 10/07/17 05:00 Pulse 122 10/07/17 05:00 Resp 16 10/07/17 05:00 BP 147/79 10/07/17 05:00 Pulse Ox 91 10/07/17 05:00 General appearance: no acute distress Eyes: nonicteric ENT: oropharynx moist Neck: supple Effort: normal Auscultation: bilateral: clear Cardiovascular: regular rate and rhythm Gastrointestinal: normoactive bowel sounds, soft, non-tender, non-distended Integumentary: normal Extremities: no cyanosis, no clubbing, pulses normal, edema (Patient still does have an erythematous and edematous right arm. The swelling has now decreased as well as the erythema has decreased from the elbow down to the forearm. There still no streaking. Pulses are still palpable bilaterally. Patient still does have normal sensation as she is nervously intact) Musculoskeletal: no deformities, ROM normal normal mental status, non-focal exam, pupils equal and round, motor strength normal and symmetric Results - Laboratory Findings CBC and BMP: 10/07/17 05:20 10/07/17 05:20 ABG ABG pH 7.46 pH Units (7.32-7.45) H 10/02/17 20:47 ABG pCO2 29 mmHg (35-45) L 10/02/17 20:47 ABG pO2 72 mmHg (85-104) L 10/02/17 20:47 ABG O2 Saturation 95 % (95-98) 10/02/17 20:47 PT/INR, D-dimer PT 15.4 Seconds (9.4-12.1) H 10/06/17 20:46 Abnormal lab findings: Abnormal lab results WBC 23.5 K/mcL (4.3-11.1) H 10/07/17 05:20 RBC 3.62 M/mcL (3.82-4.97) L 10/07/17 05:20 Hgb 9.7 g/dL (11.5-15.4) L 10/07/17 05:20 Hct 28.9 % (35.3-44.9) L 10/07/17 05:20 MCV 79.8 fL (83.0-100.0) L 10/07/17 05:20 MCH 26.8 pg (28.0-33.3) L 10/07/17 05:20 RDW 15.6 % (11.5-14.5) H 10/07/17 05:20 Immature Gran % 12.0 % (0-4) H 10/07/17 05:20 Band Neutrophils % 42.0 % (0-4) H 10/03/17 04:00 Metamyelocytes % 4.0 % (0) H 10/03/17 04:00 Neutrophils # 15.9 K/mcL (1.6-8.9) H 10/07/17 05:20 Monocytes # 1.7 K/mcL (0.0-1.3) H 10/07/17 05:20 Nucleated RBCs/100 WBC 0.1 /100 WBC (0) H 10/05/17 05:15 Reactive Lymphocytes Present (Not Present) A 10/04/17 04:00 Toxic Granulation Present (Not Present) A 10/07/17 05:20 Hypochromasia Present (Not Present) A 10/07/17 05:20 Microcytosis Present (Not Present) A 10/07/17 05:20 PT 15.4 Seconds (9.4-12.1) H 10/06/17 20:46 ABG pH 7.46 pH Units (7.32-7.45) H 10/02/17 20:47 ABG pCO2 29 mmHg (35-45) L 10/02/17 20:47 ABG pO2 72 mmHg (85-104) L 10/02/17 20:47 Potassium 3.2 mEq/L (3.5-5.1) L 10/07/17 05:20 Chloride 109 mEq/L (98-107) H 10/07/17 05:20 Creatinine 0.46 mg/dL (0.60-1.20) L 10/07/17 05:20 POC Glucose 102 mg/dL (70-99) H 10/03/17 08:01 Calcium 7.5 mg/dL (8.6-10.3) L 10/07/17 05:20 Total Bilirubin 1.1 mg/dL (0.3-1.0) H 10/02/17 08:14 Globulin 3.7 g/dL (2.4-3.5) H 10/02/17 08:14 Albumin/Globulin Ratio 0.9 (1.1-2.2) L 10/02/17 08:14 Ur Specific [place] > 1.030 (1.010-1.025) H 10/02/17 16:01 Urine Blood Trace (Negative) H 10/02/17 16:01 Urine Microscopic WBC 5-15 per hpf (0-3) H 10/02/17 16:01 Ur Squamous Epith Cells Many per lpf (None-Few) H 10/02/17 16:01 Urine Opiates Screen Positive ng/mL (Rzkfha=245) H 10/02/17 16:01 U Marijuana (THC) Screen Positive ng/mL (Cutoff = 50) H 10/02/17 16:01 Staphylococcus sp PCR DETECTED (Not Detect) A 10/02/17 08:56 Staph aureus (PCR) DETECTED (Not Detect) A 10/02/17 08:56 mecA-Methicil Res Gene DETECTED (Not Detect) A 10/02/17 08:56 - Microbiology Findings Microbiology Findings: Microbiology, Last 48 Hours 10/05/17 09:02 Blood Culture - Preliminary Peripheral Venipuncture No growth. - Clinical Findings Intake & Output: Intake & Output 10/06/17 10/06/17 10/07/17 15:59 23:59 07:59 Intake Total 920 / 920 480 / 480 1070 / 1070 Output Total 300 / 300 750 / 750 Balance 920 / 920 180 / 180 320 / 320 Weight 65 kg 65.4 kg Consult Discharge Plan - Plan Referrals: NONE,PCP [Primary Care Provider] - <Slava Waller - Last Filed: 10/07/17 16:10> Date of Encounter: 10/07/17 Objective PUL Vital signs: Last Vital Signs Temp 101.6 F H 10/07/17 15:55 Pulse 112 10/07/17 15:55 Resp 16 10/07/17 15:55 BP 167/94 10/07/17 15:55 Pulse Ox 95 10/07/17 15:55 Results - Laboratory Findings CBC and BMP: 10/07/17 05:20 10/07/17 05:20 ABG ABG pH 7.46 pH Units (7.32-7.45) H 10/02/17 20:47 ABG pCO2 29 mmHg (35-45) L 10/02/17 20:47 ABG pO2 72 mmHg (85-104) L 10/02/17 20:47 ABG O2 Saturation 95 % (95-98) 10/02/17 20:47 PT/INR, D-dimer PT 15.4 Seconds (9.4-12.1) H 10/06/17 20:46 Abnormal lab findings: Abnormal lab results WBC 23.5 K/mcL (4.3-11.1) H 10/07/17 05:20 RBC 3.62 M/mcL (3.82-4.97) L 10/07/17 05:20 Hgb 9.7 g/dL (11.5-15.4) L 10/07/17 05:20 Hct 28.9 % (35.3-44.9) L 10/07/17 05:20 MCV 79.8 fL (83.0-100.0) L 10/07/17 05:20 MCH 26.8 pg (28.0-33.3) L 10/07/17 05:20 RDW 15.6 % (11.5-14.5) H 10/07/17 05:20 Immature Gran % 12.0 % (0-4) H 10/07/17 05:20 Band Neutrophils % 42.0 % (0-4) H 10/03/17 04:00 Metamyelocytes % 4.0 % (0) H 10/03/17 04:00 Neutrophils # 15.9 K/mcL (1.6-8.9) H 10/07/17 05:20 Monocytes # 1.7 K/mcL (0.0-1.3) H 10/07/17 05:20 Nucleated RBCs/100 WBC 0.1 /100 WBC (0) H 10/05/17 05:15 Reactive Lymphocytes Present (Not Present) A 10/04/17 04:00 Toxic Granulation Present (Not Present) A 10/07/17 05:20 Hypochromasia Present (Not Present) A 10/07/17 05:20 Microcytosis Present (Not Present) A 10/07/17 05:20 PT 15.4 Seconds (9.4-12.1) H 10/06/17 20:46 APTT 57.6 Seconds (26.0-36.0) H D 10/07/17 09:15 ABG pH 7.46 pH Units (7.32-7.45) H 10/02/17 20:47 ABG pCO2 29 mmHg (35-45) L 10/02/17 20:47 ABG pO2 72 mmHg (85-104) L 10/02/17 20:47 Potassium 3.2 mEq/L (3.5-5.1) L 10/07/17 05:20 Chloride 109 mEq/L (98-107) H 10/07/17 05:20 Creatinine 0.46 mg/dL (0.60-1.20) L 10/07/17 05:20 POC Glucose 102 mg/dL (70-99) H 10/03/17 08:01 Calcium 7.5 mg/dL (8.6-10.3) L 10/07/17 05:20 Total Bilirubin 1.1 mg/dL (0.3-1.0) H 10/02/17 08:14 Globulin 3.7 g/dL (2.4-3.5) H 10/02/17 08:14 Albumin/Globulin Ratio 0.9 (1.1-2.2) L 10/02/17 08:14 Ur Specific [place] > 1.030 (1.010-1.025) H 10/02/17 16:01 Urine Blood Trace (Negative) H 10/02/17 16:01 Urine Microscopic WBC 5-15 per hpf (0-3) H 10/02/17 16:01 Ur Squamous Epith Cells Many per lpf (None-Few) H 10/02/17 16:01 Urine Opiates Screen Positive ng/mL (Qtbyvd=179) H 10/02/17 16:01 U Marijuana (THC) Screen Positive ng/mL (Cutoff = 50) H 10/02/17 16:01 Staphylococcus sp PCR DETECTED (Not Detect) A 10/02/17 08:56 Staph aureus (PCR) DETECTED (Not Detect) A 10/02/17 08:56 mecA-Methicil Res Gene DETECTED (Not Detect) A 10/02/17 08:56 - Microbiology Findings Microbiology Findings: Microbiology, Last 48 Hours 10/05/17 09:02 Blood Culture - Preliminary Peripheral Venipuncture No growth. - Clinical Findings Intake & Output: Intake & Output 10/07/17 10/07/17 10/07/17 07:59 15:59 23:59 Intake Total 1070 / 1070 750 / 750 Output Total 750 / 750 Balance 320 / 320 750 / 750 Weight 65.4 kg - Attending Attestation I examined this patient and my medical decision-making was reviewed with the Resident Physician. I agree with the documented findings, disposition and treatment plan as described except to the extent set forth below. Patient seen and examined. Labs, radiology, chart personally reviewed. Agree with resident's history and physical, assessment, plan with following comments: OIM ARCHITECT: Patient follows commands, Pulmonary: Acceptable oxygenation and ventilation and hemoptysis has improved significantly on current treatment as well as her breathing has improved. Cardiovascular: stable GI: Nutrition per dietary and GI prophylaxis per routine Heme: DVT prophylaxis per routine ID: Continue antibiotics and plan to de-escalation and infectious disease follow -up Please call for any questions.
[2017-10-07] MEDS: ALPRAZolam 1 MG TABLET PO SCH ×3 (08:07→20:26)
[2017-10-07] MEDS: Gabapentin 400 MG CAPSULE PO SCH ×4 (08:08→20:26)
[2017-10-07] MEDS: Nicotine 21 MG PATCH.TD24 TD SCH (08:08)
[2017-10-07] MEDS: tiZANidine 4 MG TABLET PO SCH ×3 (08:08→20:26)
--- NOTE | 2017-10-07 10:02 | Internal Med Progress Note ---
Date of Encounter: 10/07/17 Time of Encounter: 09:59 - Assessment and plan (1) Severe sepsis Current Visit: Yes Status: Acute Assessment and plan: Severe sepsis secondary to MRSA bacteremia and right hand severe cellulitis Continue vancomycin day #6, to complete 4 weeks after negative blood cultures Blood cultures drawn 10/02/17 are +2/2 for MRSA per PCR-infectious disease ordered repeat blood cultures 10/05/17 once that was canceled per laboratory. ID following (2) Cellulitis Current Visit: Yes Status: Acute Assessment and plan: Acute cellulitis Secondary to IV drug use i MRSA Orthopedics following did update one changes-per MRI-completed 10/02/17 no drainable abscess no osteomyelitis no joint effusion diffuse soft tissue edema- pulse Qualifiers: Site of cellulitis: extremity Site of cellulitis of extremity: upper extremity Laterality: right Qualified Code(s): L03.113 - Cellulitis of right upper limb (3) IVDU (intravenous drug user) Current Visit: Yes Status: Acute Assessment and plan: History of heroin use-HIV status nonreactive Cellulitis of right hand/forearm due to IV drug use (4) Septic embolism Current Visit: Yes Status: Suspected Assessment and plan: Most likely MRSA secondary to bacteremia CTA of chest 10/02/2017 with results as follows 1. Pulmonary nodules as described. Considering patient's age, the distribution of lesions, the overall appearance of the lesions and presentation, these are most likely related to infectious process, autoimmune process or possibly vasculitis. Though not excluded based on the appearance alone, this would be exceedingly unusual appearance for neoplasia. Bronchoscopic evaluation may be useful. 2. Adenopathy in the right axilla, mediastinum and right hilum presumably related to the acute pulmonary process. 3. No pulmonary embolism. Patient did have some hemoptysis today continues to express tachypnea requiring oxygen supplementation 4 L oxygen saturations 9496% Continue vancomycin Levaquin and clindamycin discontinued per infectious disease TTE completed with no evidence vegetations (5) Hepatitis C Current Visit: Yes Status: Acute Assessment and plan: History of hepatitis C- IV drug use Qualifiers: Viral hepatitis chronicity: chronic Hepatic coma status: without hepatic coma Qualified Code(s): B18.2 - Chronic viral hepatitis C (6) Drug overdose Current Visit: Yes Status: Suspected Qualifiers: Encounter type: initial encounter Injury intent: undetermined intent Qualified Code(s): T50.904A - Poisoning by unspecified drugs, medicaments and biological substances, undetermined, initial encounter (7) Hemoptysis Current Visit: Yes Status: Acute Assessment and plan: consulted pulmonology no planning for a bronchoscopy at this time- (8) Hypokalemia Current Visit: Yes Status: Acute Assessment and plan: replete - Time Spent With Patient Total time spent is greater than 50% in coordination of care (as documented) at patient's floor/unit and/or counseling patient: - Subjective Interval history: Still complaining of pain on her right hand, redness has been improving slightly , still tachycardic, short of breath, bringing up bloody sputum, denies any chest pain, no abdominal pain diarrhea or dysuria - Constitutional Vitals: Temp Pulse Resp BP Pulse Ox 98.1 F 111 16 153/86 94 10/07/17 07:46 10/07/17 07:46 10/07/17 07:46 10/07/17 07:46 10/07/17 07:46 General appearance: Present: A&O X 3 - Head Head exam: Present: atraumatic, normocephalic - Eye Eye exam: Present: PERRL, conjuntiva pink, sclera anicteric Pupils: Present: PERRL - Neck Neck exam general surgery: Present: supple, trachea midline. Absent: lymphadenopathy - Respiratory Respiratory exam: Present: CTAB, rales. Absent: accessory muscle use, rhonchi, wheezes - Cardiovascular Cardiovascular exam: Present: RRR, +S1, +S2. Absent: diastolic murmur, gallop, rubs, systolic murmur - GI/Abdominal GI/Abdominal exam: Present: normal bowel sounds, soft, no peritoneal signs. Absent: distended, tenderness - Extremities Exam Extremities exam: Present: warm, radial pulses palpable and symmetrical. Absent : calf tenderness, cyanotic, pedal edema - Neurological Exam Neurological exam: Present: CN II-XII intact, oriented X3, no focal deficits. Absent: pronater drift, facial droop, speech deficit - Skin Skin exam: Present: dry, excoriation. Absent: intact Additional comments: Dorsum of the right hand is very edematous, erythematous, tender, has ulcers that are losing, apparently erythema has been improving Internal Medicine: Result - Labs CBC & Chem 7: 10/07/17 05:20 10/07/17 05:20 Labs: Short CBC 10/06/17 10/07/17 Range/Units 20:16 05:20 WBC 21.3 H 23.5 H (4.3-11.1) K/mcL Hgb 10.2 L 9.7 L (11.5-15.4) g/dL Hct 30.1 L 28.9 L (35.3-44.9) % Plt Count 273 300 (140-400) K/mcL Neutrophils # 15.9 H (1.6-8.9) K/mcL BMP 10/07/17 05:20 Sodium 138 Potassium 3.2 L Chloride 109 H Carbon Dioxide 25 BUN 6 Creatinine 0.46 L Glucose 91 Calcium 7.5 L - ABG Interpretation ABG results: ABG ABG pH 7.46 pH Units (7.32-7.45) H 10/02/17 20:47 ABG pCO2 29 mmHg (35-45) L 10/02/17 20:47 ABG pO2 72 mmHg (85-104) L 10/02/17 20:47 ABG O2 Saturation 95 % (95-98) 10/02/17 20:47 PT/INR, D-dimer PT 15.4 Seconds (9.4-12.1) H 10/06/17 20:46 - Impressions Impressions Chest X-Ray 10/06/17 14:06 IMPRESSION: Bilateral pleural effusions and multifocal pulmonary edema, for which fluid overload would be the primary diagnostic consideration. Noncardiogenic causes should also be considered. These findings appear new compared to CT of 10/02/2017. D/ / Ron Osorio / Ron Osorio Interpreting Provider: Ron Osorio Consult Discharge Plan - Plan Referrals: NONE,PCP [Primary Care Provider] -
[2017-10-07] MEDS ORDERED: Aminoglycoside Consult 1 EACH MC ONE (11:23)
--- NOTE | 2017-10-07 13:50 | Infectious Disease Progress No ---
Date of Encounter: 10/07/17 Time of Encounter: 10:00 - Assessment and Plan (1) Severe sepsis Current Visit: Yes Status: Acute Severe sepsis: The patient had four SIRS criteria plus lactic acidosis. Likely secondary to bacteremia and right hand cellulitis. Improved clinically, but patient continues to have tachycardia and worsening leukocytosis. Afebrile overnight. Blood cultures drawn 10/02/17 are positive 2/2 for MRSA per PCR. Repeat blood cultures x 1 set drawn 10/05/17 (one set cancelled per lab staff) is NGTD. Repeat blood cultures x 2 sets drawn 10/06/17 are pending. Etiology of worsening leukocytosis unclear: DVT vs. other. CXR shows bilateral pleural effusions and findings consistent with multifocal pulmonary edema, but no acute infiltrate. Clinically, the hand looks better, but continues to have swelling and erythema of the forearm. (2) Bacteremia Current Visit: Yes Status: Acute Causative organism: MRSA. Source likely right hand cellulitis. Blood cultures drawn 10/02/17 are positive 2/2 sets for MRSA. Repeat blood cultures 10/05/17 x 1 set are NGTD (one set cancelled per lab or nursing staff). Additional blood cultures drawn 10/06/17 are pending x 2 sets. Complicated due to septic emboli in the lungs. No endocarditis stigmata noted on exam. The patient has one major and one minor Modified Wagner's criteria. TTE negative for vegetations. JERSEY negative. Continue Vancomycin IV. Pharmacy to dose. Goal trough ~15. Vanc trough was only 8. Will discuss with pharmacy. Duration of treatment depends on the clinical picture, but likely a total of 4 weeks from the first set of negative blood cultures. Monitor renal function and for drug toxicity and dose-adjust antibiotics. vp celebrity services to assist with discharge planning. Patient will need ECF/LTACH placement on discharge given history of IVDU. Avoid insertion of central venous access until repeat blood cultures are negative x 48 hours and discharge placement has been confirmed. (3) Cellulitis Current Visit: Yes Status: Acute Location: Right hand. Causative organism likely MRSA. MRI of the hand showed findings consistent with cellulitis and tenosynovitis, but no OM or abscess. Ortho consulted and following. No surgical intervention at this time. Edema and ROM continues to improve, but new erythema noted to the proximal forearm and worsening leukocytosis. Get repeat MRI of the RUE, including the hand and forearm. Continue antibiotics as above. Duration of treatment depends on the clinical picture, but she will require a prolonged course of IV antibiotics due to the complicated bacteremia. Wound care and activity per the ortho team. Qualifiers: Site of cellulitis: extremity Site of cellulitis of extremity: upper extremity Laterality: right Qualified Code(s): L03.113 - Cellulitis of right upper limb (4) Septic embolism Current Visit: Yes Status: Suspected Location: Bilateral lungs. Causative organism: MRSA. Likely secondary to bacteremia. S. pneumo and Legionella UAT negative. RIP negative. Continue antibiotics as above. (5) Altered mental status Current Visit: Yes Status: Resolved Likely secondary to drug use vs. narcotic pain medication given response to Narcan. CT head completed 10/02/17 was negative. Resolved. Qualifiers: Altered mental status type: unspecified Qualified Code(s): R41.82 - Altered mental status, unspecified (6) IVDU (intravenous drug user) Current Visit: Yes Status: Acute Known Hep C positive. HIV nonreactive. (7) Hepatitis C Current Visit: Yes Status: Acute Qualifiers: Viral hepatitis chronicity: chronic Hepatic coma status: without hepatic coma Qualified Code(s): B18.2 - Chronic viral hepatitis C (8) DVT (deep venous thrombosis) Current Visit: Yes Status: Acute Location: Right brachial vein. Anticoagulation per the primary team. Continue supportive care. Qualifiers: DVT location: upper extremity Affected thrombotic vein of extremity: brachial Chronicity: acute Laterality: right Qualified Code(s): I82.621 - Acute embolism and thrombosis of deep veins of right upper extremity (9) Superficial venous thrombosis of arm Current Visit: Yes Status: Acute Location: Right basilic vein. Continue supportive care. Management per the primary team. Qualifiers: Laterality: right Qualified Code(s): I82.611 - Acute embolism and thrombosis of superficial veins of right upper extremity (10) Hemoptysis Current Visit: Yes Status: Acute Likely secondary to septic emboli. Pulmonology consulted and following. No indication for bronchscopy at this time. - Subjective Interval history: Patient seen and examined. No acute events noted overnight. Patient states overall her hand feels better and is less red and swollen. Denies fevers, chills , or rigors. Denies chest pain and states shortness of breath is better She reports a moist cough with some hemoptysis. Denies nausea, vomiting, diarrhea, or constipation. Denies abdominal pain, urinary complaints or appetite changes. Reports chronic back pain at is at baseline. Denies oral thrush or other skin lesions. Infect Dis PN-Objective Data - Labs CBC & Chem 7: 10/07/17 05:20 10/07/17 05:20 Labs: Laboratory Results - last 24 hr 10/06/17 10/06/17 10/07/17 20:16 20:46 05:20 WBC 21.3 H 23.5 H RBC 3.75 L 3.62 L Hgb 10.2 L 9.7 L Hct 30.1 L 28.9 L MCV 80.3 L 79.8 L MCH 27.2 L 26.8 L MCHC 33.9 33.6 RDW 15.7 H 15.6 H Plt Count 273 300 MPV 9.9 9.8 Immature Gran % 12.0 H Seg Neutrophils % 67.8 Lymphocytes % 11.9 Monocytes % 7.1 Eosinophils % 0.7 Basophils % 0.5 Neutrophils # 15.9 H Lymphocytes # 2.8 Monocytes # 1.7 H Eosinophils # 0.2 Basophils # 0.1 Toxic Granulation Present A Platelet Estimate Normal Hypochromasia Present A Microcytosis Present A PT 15.4 H INR 1.4 APTT 30.1 Sodium Potassium Chloride Carbon Dioxide BUN Creatinine Est GFR ( Amer) Est GFR (Non-Af Amer) BUN/Creatinine Ratio Glucose Calculated Osmolality Calcium Specimen Rejected 10/07/17 10/07/17 10/07/17 05:20 08:00 09:15 WBC RBC Hgb Hct MCV MCH MCHC RDW Plt Count MPV Immature Gran % Seg Neutrophils % Lymphocytes % Monocytes % Eosinophils % Basophils % Neutrophils # Lymphocytes # Monocytes # Eosinophils # Basophils # Toxic Granulation Platelet Estimate Hypochromasia Microcytosis PT INR APTT 57.6 H D Sodium 138 Potassium 3.2 L Chloride 109 H Carbon Dioxide 25 BUN 6 Creatinine 0.46 L Est GFR ( Amer) > 60 Est GFR (Non-Af Amer) > 60 BUN/Creatinine Ratio 13 Glucose 91 Calculated Osmolality 283 Calcium 7.5 L Specimen Rejected Contaminated Cultures: Cultures 10/05/17 09:02 Blood Culture - Preliminary Peripheral Venipuncture No growth. 10/02/17 16:01 Legionella Antigen - Final Urine,Clean Catch Streptococcus pneumoniae Antigen (M - Final Serology 10/02/17 10/02/17 10/02/17 Range/Units 16:30 16:01 14:22 Urine Color Yellow (Yellow) Urine Clarity Clear (Clear) Urine pH 5.5 (5.0-8.0) pH Units Ur Specific Ivor > 1.030 H (1.010-1.025) Urine Protein Trace (Neg-Trace) mg/dL Urine Glucose (UA) Normal (Normal) mg/dL Urine Ketones Negative (Negative) mg/dL Urine Blood Trace H (Negative) Urine Nitrite Negative (Negative) Urine Bilirubin Negative (Negative) Urine Urobilinogen Normal (Normal) mg/dL Ur Leukocyte Esterase Negative (Negative) Urine Microscopic RBC 0-3 (0-3) per hpf Urine Microscopic WBC 5-15 H (0-3) per hpf Ur Squamous Epith Cells Many H (None-Few) per lpf Urine Bacteria None Seen (None-Few) per hpf Hyaline Casts None Seen (None-Few) per lpf Ur Culture Indicated? NO (NO) Chlamy pneumoniae PCR Not Detected (Not Detect) Adenovirus (PCR) Not Detected (Not Detect) B. pertussis DNA (PCR) Not Detected (Not Detect) B.parapertussis DNA PCR Not Detected (Not Detect) Coronavirus OC43 (PCR) Not Detected (Not Detect) Coronavirus HKU1 (PCR) Not Detected (Not Detect) Coronavirus 229E (PCR) Not Detected (Not Detect) Coronavirus NL63 (PCR) Not Detected (Not Detect) HIV Ag/Ab Combo Qual Nonreactive (Nonreactive) Human Metapneumovir PCR Not Detected (Not Detect) Influenza A (H1) PCR Not Detected (Not Detect) Influ A (H1N1/09) PCR Not Detected (Not Detect) Influenza A (H3) PCR Not Detected (Not Detect) Influenza A Untype (PCR) Not Detected (Not Detect) Influenza Type B (PCR) Not Detected (Not Detect) M.pneumoniae DNA (PCR) Not Detected (Not Detect) Parainfluenza 1 (PCR) Not Detected (Not Detect) Parainfluenza 2 (PCR) Not Detected (Not Detect) Parainfluenza 3 (PCR) Not Detected (Not Detect) Parainfluenza 4 (PCR) Not Detected (Not Detect) RSV (PCR) Not Detected (Not Detect) Entero/Rhino (PCR) Not Detected (Not Detect) - Impressions Impressions Chest X-Ray 10/06/17 14:06 IMPRESSION: Bilateral pleural effusions and multifocal pulmonary edema, for which fluid overload would be the primary diagnostic consideration. Noncardiogenic causes should also be considered. These findings appear new compared to CT of 10/02/2017. D/ / Ron Osorio / Ron Osorio Interpreting Provider: Ron Osorio Exam - Constitutional Vitals: Temp Pulse Resp BP Pulse Ox 98.3 F 113 16 119/93 93 10/07/17 12:08 10/07/17 12:08 10/07/17 12:08 10/07/17 12:08 10/07/17 12:08 General appearance: average body habitus, cooperative, no acute distress - Head Head exam: Present: atraumatic, normal inspection, normocephalic - Eye Eye exam: Present: EOMI, normal appearance, PERRL Pupils: Present: normal accommodation - ENT ENT exam: Present: mucous membranes moist - Neck Neck exam: Present: normal inspection - Respiratory Respiratory exam: Present: CTAB. Absent: rales, respiratory distress, rhonchi, wheezes - Cardiovascular Cardiovascular exam: Present: +S1, +S2, tachycardia. Absent: irregular rhythm - GI/Abdominal GI/Abdominal exam: Present: normal bowel sounds, soft. Absent: distended, tenderness - Extremities Exam Additional comments: Right hand/wrist erythema continues to improve. ROM limited, but better than yesterday. Edema noted to the right forearm to just distal to the elbow with new-onset of erythema to the proximal forearm. Purulent drainage noted from a small open lesion to the dorsal aspect of the hand. No fluctuance or palpable abscess at this time. - Back Exam Back exam: Present: normal inspection. Absent: paraspinal tenderness, vertebral tenderness - Neurological Exam Neurological exam: Present: alert, oriented X3, no focal deficits - Psychiatric Psychiatric exam: Present: normal affect, normal mood - Skin Skin exam: Present: dry, intact, normal color, warm Consult Discharge Plan - Plan Referrals: NONE,PCP [Primary Care Provider] - - Attending Attestation I examined this patient and my medical decision-making was reviewed with the Resident Physician. I agree with the documented findings, disposition and treatment plan as described except to the extent set forth below.
[2017-10-07] MEDS: Acetaminophen 325 MG TABLET PO PRN (15:43)
[2017-10-07] MEDS ORDERED: Gadolinium Contrast Agent (WT Based) IV PRN (16:38)
[2017-10-07] MEDS ORDERED: *HR* LORazepam 2 MG/ML VIAL IVP ONE (16:51)
--- NOTE | 2017-10-07 20:37 | Orthopedics Progress Note ---
Date of Encounter: 10/07/17 Time of Encounter: 20:34 Subjective Principal diagnosis: Right upper extremity infection Interval history: 10/03/2017. Patient states that the forearm is more swollen and painful. Having dyspnea. Having difficulty with moving fingers well. Vital signs are stable. Patient is afebrile. White blood cell count is improved. The hand shows pitting edema. No discrete abscess or fluctuant area. Several small areas on the dorsum of the hand where suspect there were skin pops are draining serous fluid. Forearm is somewhat edematous. Overall I think the arm is improved. MRI was reviewed last night. No discrete abscess or loculated fluid cavity was noted. Impression: Right upper extremity infection secondary to IVDA. Recommendation: Discussed with the patient that I do not see anything that requires surgical intervention at this time. Recommend that she maintain elevation of the extremity and work aggressively at trying to muscle pump the forearm and work range of motion of the fingers. 10/04/2017. Patient is feeling better today. She is noticing more motion and less pain in the fingers. Vital signs are stable. Patient is currently afebrile though she did have a temperature above 100.3 earlier. exam reveals less edema & erythema in hand & forearm. pitting edema in hand without fluctuance. Able to move her fingers better. WBC 15.5. PLT 205 blood cultures positive for gram-positive cocci. Impression:gram-positivecocci bacteremia with right upper extremity infection, probable MRSA REcommendation: continue IV Abx. Observer RUE. No indication for formal I&D at this time. . Patient is feeling better in regards to her right arm today. She states she has improved function in her fingers. Denies neurovascular complaints. Noticing more swelling in the upper arm as anticipated with elevation of the hand. Patient is afebrile. Examination of the right upper extremity reveals erythema and edema in the upper arm and the forearm. Movement is markedly improved with much less pain. Hand continues to show a fair amount of swelling and distention. There are several small areas of serous drainage. Patient states that she had an area of purulent drainage on the dorsum. There clinically may be some fluctuance on the dorsum. No definable abscess at this time. Impression: MRSA bacteremia with right upper extremity infection Recommendation: At this time would continue with intravenous antibiotics and supportive care. Will reevaluate the patient in 24 hours. If there is evidence of an evolving abscess will need incision and drainage. Patient is high risk for surgical intervention, discussed with the patient if needed would recommend this be preferentially done at bedside rather with the stressing concerns with anesthesia. 10/07/19 in regards to her arm and hand. She describes less pain and improved function. Patient does have a recent temperature spike of 101+. Examination of the hand reveals what appears to be an evolving remaining predominantly serous fluid with what looks like some tissue necrosis. Forearm is much improved. I attempted to download the recently completed MRI but was unable to view the images. We will obtain images and speak with the radiologist regarding interpretation. Impression: MRSA bacteremia with right upper extremity infection, suspect evolving abscess in dorsum of right hand Recommendations: Discussed with patient that she may need a formal I&D in the near future. Patient is a much better candidate for surgical intervention at this time in light of her improved. Patient understands possible need For surgical intervention Objective Vital signs: Vital Signs Temp Pulse Resp BP Pulse Ox 10/07/17 15:55 101.6 F H 112 16 167/94 95 10/07/17 12:08 98.3 F 113 16 119/93 93 10/07/17 07:46 98.1 F 111 16 153/86 94 10/07/17 05:00 97.7 F 122 16 147/79 91 10/07/17 00:00 97.8 F 124 16 150/82 90 Intake and Output 10/07/17 10/07/17 10/07/17 07:59 15:59 23:59 Intake Total 1070 / 1070 750 / 750 100 / 100 Output Total 750 / 750 Balance 320 / 320 750 / 750 100 / 100 Intake: IV Fluids 500 / 500 150 / 150 100 / 100 Heparin 25,000 UNIT/500 ML D5W 150 / 150 100 / 100 25,000 unit In 500 ml @ 14 UNIT /KG/HR 18.2 mls/hr IVC .Q24H [facility] Rx#:[id number] Vancocin 2,000 MG In 0.9 % 500 / 500 Sodium Chloride 500 ML @ 250 mls/hr IVPB Q12H [facility] Rx#: [id number] Oral 570 / 570 600 / 600 Output: Urine 750 / 750 Other: Meal Lunch Percent of Meal Consumed 75% # Voids 2 Weight 65.4 kg Patient Weight 10/07/17 23:59 Weight 65.4 kg - Labs CBC & BMP: 10/07/17 05:20 10/07/17 05:20 Labs: Abnormal lab results WBC 23.5 K/mcL (4.3-11.1) H 10/07/17 05:20 RBC 3.62 M/mcL (3.82-4.97) L 10/07/17 05:20 Hgb 9.7 g/dL (11.5-15.4) L 10/07/17 05:20 Hct 28.9 % (35.3-44.9) L 10/07/17 05:20 MCV 79.8 fL (83.0-100.0) L 10/07/17 05:20 MCH 26.8 pg (28.0-33.3) L 10/07/17 05:20 RDW 15.6 % (11.5-14.5) H 10/07/17 05:20 Immature Gran % 12.0 % (0-4) H 10/07/17 05:20 Band Neutrophils % 42.0 % (0-4) H 10/03/17 04:00 Metamyelocytes % 4.0 % (0) H 10/03/17 04:00 Neutrophils # 15.9 K/mcL (1.6-8.9) H 10/07/17 05:20 Monocytes # 1.7 K/mcL (0.0-1.3) H 10/07/17 05:20 Nucleated RBCs/100 WBC 0.1 /100 WBC (0) H 10/05/17 05:15 Reactive Lymphocytes Present (Not Present) A 10/04/17 04:00 Toxic Granulation Present (Not Present) A 10/07/17 05:20 Hypochromasia Present (Not Present) A 10/07/17 05:20 Microcytosis Present (Not Present) A 10/07/17 05:20 PT 15.4 Seconds (9.4-12.1) H 10/06/17 20:46 APTT 42.1 Seconds (26.0-36.0) H 10/07/17 16:00 ABG pH 7.46 pH Units (7.32-7.45) H 10/02/17 20:47 ABG pCO2 29 mmHg (35-45) L 10/02/17 20:47 ABG pO2 72 mmHg (85-104) L 10/02/17 20:47 Potassium 3.2 mEq/L (3.5-5.1) L 10/07/17 05:20 Chloride 109 mEq/L (98-107) H 10/07/17 05:20 Creatinine 0.46 mg/dL (0.60-1.20) L 10/07/17 05:20 POC Glucose 102 mg/dL (70-99) H 10/03/17 08:01 Calcium 7.5 mg/dL (8.6-10.3) L 10/07/17 05:20 Total Bilirubin 1.1 mg/dL (0.3-1.0) H 10/02/17 08:14 Globulin 3.7 g/dL (2.4-3.5) H 10/02/17 08:14 Albumin/Globulin Ratio 0.9 (1.1-2.2) L 10/02/17 08:14 Ur Specific Lamy > 1.030 (1.010-1.025) H 10/02/17 16:01 Urine Blood Trace (Negative) H 10/02/17 16:01 Urine Microscopic WBC 5-15 per hpf (0-3) H 10/02/17 16:01 Ur Squamous Epith Cells Many per lpf (None-Few) H 10/02/17 16:01 Urine Opiates Screen Positive ng/mL (Xckvrh=474) H 10/02/17 16:01 U Marijuana (THC) Screen Positive ng/mL (Cutoff = 50) H 10/02/17 16:01 Staphylococcus sp PCR DETECTED (Not Detect) A 10/02/17 08:56 Staph aureus (PCR) DETECTED (Not Detect) A 10/02/17 08:56 mecA-Methicil Res Gene DETECTED (Not Detect) A 10/02/17 08:56 Consult Discharge Plan - Plan Referrals: NONE,PCP [Primary Care Provider] -
[2017-10-07 23:19] LABS: Acinetobacter baumannii by PCR Not Detected (Not Detect); Candida albicans by PCR Not Detected (Not Detect); Candida glabrata by PCR Not Detected (Not Detect); Candida krusei by PCR Not Detected (Not Detect); Candida parapsilosis by PCR Not Detected (Not Detect); Candida tropicalis by PCR Not Detected (Not Detect); Enterococcus by PCR Not Detected (Not Detect); Escherichia coli by PCR Not Detected (Not Detect); Klebsiella oxytoca by PCR Not Detected (Not Detect); Klebsiella pneumoniae by PCR Not Detected (Not Detect); Pseudomonas aeruginosa by PCR Not Detected (Not Detect); Serratia marcescens by PCR Not Detected (Not Detect); Staphylococcus aureus by PCR ***DETECTED*** (Not Detect); Streptococcus agalactiae(B)PCR Not Detected (Not Detect); Streptococcus by PCR Not Detected (Not Detect); Streptococcus pneumoniae PCR Not Detected (Not Detect); Streptococcus pyogenes (A) PCR Not Detected (Not Detect); mecA Methicillin-Resist Gene ***DETECTED*** (Not Detect)
[2017-10-08] MEDS: Heparin 25,000 UNIT/500 ML D5W 25,000 UNIT/500 ML BAG IVC SCH (02:07)
[2017-10-08] MEDS: *HR* OxyCODONE/APAP 7.5/325 TABLET PO PRN ×2 (02:57→08:31)
[2017-10-08 04:46] LABS: Mean Platelet Volume 9.3 fL (9.4-12.4); Platelet Count 339 K/mcL (140-400); Red Cell Distribution Width 15.9 % (11.5-14.5)
[2017-10-08 04:47] LABS: Hematocrit 28.1 % (35.3-44.9); Hemoglobin 9.5 g/dL (11.5-15.4); Mean Corpuscular HGB Conc 33.8 g/dL (31.6-35.5); Mean Corpuscular Hemoglobin 26.8 pg (28.0-33.3); Mean Corpuscular Volume 79.4 fL (83.0-100.0); Red Blood Count 3.54 M/mcL (3.82-4.97)
[2017-10-08 05:03] LABS: BUN/Creatinine Ratio 11 (6-26); Blood Urea Nitrogen 5 mg/dL (6-20); Calcium 7.5 mg/dL (8.6-10.3); Carbon Dioxide 24 mEq/L (23-29); Chloride 106 mEq/L (98-107); Glucose 119 mg/dL (70-105); Osmolality,Calculated 278 (280-300); Potassium 3.6 mEq/L (3.5-5.1); Sodium 135 mEq/L (136-145); eGFR For African Americans > 60 (> 60); eGFR For Non-African Americans > 60 (> 60)
[2017-10-08 05:38] LABS: Eosinophils # 0.5 K/mcL (0.0-0.6); Lymphocytes # 2.1 K/mcL (0.6-4.6); Monocytes # 1.6 K/mcL (0.0-1.3); Neutrophils # 22.4 K/mcL (1.6-8.9); Platelet Estimate Normal (Normal)
[2017-10-08 05:39] LABS: Microcytosis Present (Not Present); Reactive Lymphocytes Present (Not Present)
[2017-10-08] MEDS: tiZANidine 4 MG TABLET PO SCH (08:09)
[2017-10-08 08:11] VITALS: BP 163/79
[2017-10-08] MEDS: ALPRAZolam 1 MG TABLET PO SCH (08:11)
[2017-10-08] MEDS: Gabapentin 400 MG CAPSULE PO SCH (08:11)
[2017-10-08] MEDS: Nicotine 21 MG PATCH.TD24 TD SCH (08:11)
[2017-10-08] MEDS ORDERED: Meropenem 1,000 MG in Water for inj. (sterile) 20 ML 10 ML IVP SCH (08:40)
--- NOTE | 2017-10-08 08:48 | Discharge Summary ---
Orders not resulted at time of discharge: Pending orders 10/05/17 09:02 Culture,Blood [BC] Stat 10/06/17 10:17 Culture,Blood [BC] Stat Culture,Blood,Additional [BC] Stat 10/06/17 12:49 Sputum Culture [Culture,Sputum with Gram Stain] [RM] Routine 10/08/17 14:30 PTT [Activated Partial Thrombo Time] [COAG] Timed 10/09/17 04:00 Basic Metabolic Panel AM 0400 Complete Blood Count [HEME] AM 0400 Date of Encounter: 10/10/17 Time of Encounter: 08:46 - Discharge Diagnosis (1) Severe sepsis Priority: Primary Status: Acute Assessment and Plan: Severe sepsis secondary to pulmonary septic emboli, MRSA bacteremia, right hand and forearm severe cellulitis with multilocular abscesses, myositis and tenosynovitis (2) Cellulitis Priority: Primary Status: Acute Qualifiers: Site of cellulitis: extremity Site of cellulitis of extremity: upper extremity Laterality: right Qualified Code(s): L03.113 - Cellulitis of right upper limb (3) IVDU (intravenous drug user) Priority: Secondary Status: Acute (4) Septic embolism Priority: Primary Status: Suspected (5) Hepatitis C Priority: Secondary Status: Acute Qualifiers: Viral hepatitis chronicity: chronic Hepatic coma status: without hepatic coma Qualified Code(s): B18.2 - Chronic viral hepatitis C (6) Drug overdose Priority: Secondary Status: Suspected Qualifiers: Encounter type: initial encounter Injury intent: undetermined intent Qualified Code(s): T50.904A - Poisoning by unspecified drugs, medicaments and biological substances, undetermined, initial encounter (7) Hemoptysis Priority: Secondary Status: Acute (8) Hypokalemia Priority: Secondary Status: Acute Hospital course: Ms. Vargas is a 32 year old female with past medical history of IVDA, tobacco abuse, hepatitis C that has not been treated, migraines, came to [facility] complaining of 2-3 days of pain in the right hand and wrist. Patient was also having fevers and chills. Did IV drugs in the hand a few days ago. WBC was18.7 with 86% neutrophils. Rest of the labs reveal a PT of 16.6, INR of 1.5. Lactic acid of 2.[address] of the chest revealed pulmonary nodule and multiple lymph nodes are enlarged. X-ray of the hand reveals generalized soft tissue swelling involving the dorsum of the hand without acute osseous abnormality. A lumbar MRI was normal. CTA of chest 10/02/2017 showed: 1. Pulmonary nodules as described. Considering patient's age, the distribution of lesions, the overall appearance of the lesions and presentation, these are most likely related to infectious process, autoimmune process or possibly vasculitis. Though not excluded based on the appearance alone, this would be exceedingly unusual appearance for neoplasia. Bronchoscopic evaluation may be useful. 2. Adenopathy in the right axilla, mediastinum and right hilum presumably related to the acute pulmonary process. 3. No pulmonary embolism. Patient did have some hemoptysis which has stopped. Pulmonary service was consulted but did not recommed a bronchoscopy. THe patient has been on a heparin drip, has a right basilic thrombus. Continue vancomycin Levaquin and clindamycin discontinued per infectious disease TTE completed with no evidence vegetations Has received 7 days of vancomycin IV ID recommended to complete 4 weeks after negative blood cultures Blood cultures drawn 10/02/17 are +2/2 for MRSA Ortopedic surgery has followed the patient, an MRI of the right hand and forearm showed: 1. Extensive subcutaneous edema throughout the forearm and hand compatible with cellulitis. 2. Large multilocular complex fluid collection within the mid and proximal forearm flexor musculature and overlying subcutaneous fat measuring approximately 8.8 x 4.4 x 2.7 cm compatible with an abscess. Extensive intramuscular edema compatible with myositis. 3. Smaller multilocular fluid collections in the hand including within the thenar musculature, soft tissues dorsal to the 2nd intermetacarpal space, and 4th intermetacarpal musculature. 4. Moderate 2nd through 5th extensor tenosynovitis in the hand. Dr Nuñez from orthopedic surgery has recommended to transfer the patient to a tertiary care facility in [place]. WBC is 26.7, HR 133, had fevers >101 yesterday. Not improving on Vancomycin, Meropenem will be started. Will be transferred to [facility] Time spent discussing smoking cessation with patient: 3 to 10 minutes - Time Spent with Patient Total time spent providing and/or coordinating discharge services: Greater than 30 minutes (40 min) - Discharge Medications Home Medications: ALPRAZolam [Xanax 1 MG Tablet] 1 mg PO QID 10/02/17 [History] Gabapentin [Neurontin] 800 mg PO QID 10/02/17 [History] Naproxen Sodium [Aleve] 220 mg PO DAILY PRN 10/02/17 [History] Quetiapine Fumarate [SEROquel] 100 mg PO HS 10/02/17 [History] Tizanidine HCl 2 mg PO TID 10/02/17 [History] Allergies/Adverse Reactions: 3 Allergy/AdvReac Type Severity Reaction Status Date / Time Cefaclor [From [facility] [place]] Allergy Hives Verified 10/02/17 08:52 Date of admission: 10/02/17 12:11 Primary care physician: PCP NONE Consults: 10/02/17 12:20 Consult to [facility] [CONS] Routine Reason for SW Consult: IV drug user stating she is wanting help and to go to a rehab facility. Also may possibly be spetic and may require IV antibiotics at D/C. 10/02/17 12:56 Consult to Orthopedic Surgery [CONS] Stat Consulting Provider: Orthopedic and Sports Medicine Reason for Consult: Compartment syndrone Time Notified: 12:57 Call Completed: Yes 10/05/17 06:17 Consult to PICC team [Consult to Invasive Line Access Team] [CONS] Routine Reason for Consult: need IV access for IV antibiotic Line Type: Midline PICC line indications: Limited vascular access 10/06/17 13:41 Consult to Pulmonology [CONS] Routine Consulting Provider: [facility] Reason for Consult: hemoptysis Time Notified: 13:44 Call Completed: Yes - Constitutional Vitals: Temp Pulse Resp BP Pulse Ox 98.5 F 132 32 163/79 94 10/08/17 07:47 10/08/17 07:47 10/08/17 07:47 10/08/17 07:47 10/08/17 07:47 General appearance: Present: A&O X 3 Exam: - Head Head exam: Present: atraumatic, normocephalic - Eye Eye exam: Present: PERRL, conjuntiva pink, sclera anicteric Pupils: Present: PERRL - Neck Neck exam general surgery: Present: supple, trachea midline. Absent: lymphadenopathy - Respiratory Respiratory exam: Present: CTAB, rales. Absent: accessory muscle use, rhonchi, wheezes - Cardiovascular Cardiovascular exam: Present: RRR, +S1, +S2. Absent: diastolic murmur, gallop, rubs, systolic murmur - GI/Abdominal GI/Abdominal exam: Present: normal bowel sounds, soft, no peritoneal signs. Absent: distended, tenderness - Extremities Exam Extremities exam: Present: warm, radial pulses palpable and symmetrical. Absent : calf tenderness, cyanotic, pedal edema - Neurological Exam Neurological exam: Present: CN II-XII intact, oriented X3, no focal deficits. Absent: pronater drift, facial droop, speech deficit - Skin Skin exam: Present: dry, excoriation. Absent: intact Additional comments: Dorsum of the right hand is very edematous, erythematous, tender, has ulcers that are oozing, apparently erythema has been improving in the proximal forearm but edema and pain have persisted - Patient Status Disposition: Transfer Critical Access Hosp Condition: Serious - Discharge Instructions Instructions: Cellulitis (DC), Viral Hepatitis C (DC), Viral Hepatitis C (GEN) , Sepsis (DC) Follow Up With: NONE,PCP [Primary Care Provider] -
[2017-10-08] MEDS ORDERED: 0.9 % Sodium Chloride 1,000 ML ONE (10:20)
--- NOTE | 2017-10-08 10:35 | Infectious Disease Progress No ---
Date of Encounter: 10/08/17 Time of Encounter: 10:34 - Assessment and Plan (1) Severe sepsis Status: Acute Severe sepsis: The patient had four SIRS criteria plus lactic acidosis. Likely secondary to bacteremia and right hand cellulitis. Improved clinically, but patient continues to have tachycardia and worsening leukocytosis. She was febrile overnight. Blood cultures drawn 10/02/17 are positive 2/2 for MRSA per PCR. Repeat blood cultures x 1 set drawn 10/05/17 (one set cancelled per lab staff) is positive. Repeat blood cultures x 2 sets drawn 10/06/17 are NGTD. Etiology of worsening leukocytosis and fever likely secondary to abscess as noted on most recent MRI. (2) Bacteremia Status: Acute Causative organism: MRSA. Source likely right hand cellulitis. Blood cultures drawn 10/02/17 are positive 2/2 sets for MRSA. Repeat blood cultures 10/05/17 x 1 set are positive (one set cancelled per lab or nursing staff). Additional blood cultures drawn 10/06/17 are NGTD x 2 sets. Complicated due to septic emboli in the lungs. No endocarditis stigmata noted on exam. The patient has one major and one minor Modified Wagner's criteria. TTE negative for vegetations. JERSE[place] negative. Continue Vancomycin IV. Pharmacy to dose. Goal trough ~15. Vanc trough improved to 18 yesterday. Duration of treatment depends on the clinical picture, but likely a total of 4- 6 weeks from the first set of negative blood cultures given the extent of the RUE infection. Monitor renal function and for drug toxicity and dose-adjust antibiotics. marketing services vice president to assist with discharge planning. Patient will need ECF/LTACH placement on discharge given history of IVDU. Avoid insertion of central venous access until repeat blood cultures are negative x 48 hours and discharge placement has been confirmed. (3) Cellulitis Status: Acute Location: Right hand. Causative organism likely MRSA. MRI of the hand showed findings consistent with cellulitis and tenosynovitis, but no OM or abscess. Ortho consulted and following. No surgical intervention at this time. Repeat MRI of the right hand and forearm showed extensive subcutaneous edema throughout the forearm and hand compatible with cellulitis, large multilobular complex fluid collection within the mid and proximal forearm flexor musculature and overlying subcutaneous fat measuring approximately 8.8 x 4.4 x 2.7 cm compatible with an abscess. There is also noted to be extensive intramuscular edema compatible with myositis and smaller multiloculated fluid collections in the hand including within the thenar musculature, soft tissues dorsal to the second intermetacarpal space, and fourth intermetatarsal musculature. There is no evidence of osteomyelitis or joint effusion. I discussed the case with Dr. Nuñez this morning who recommends transfer to [facility] for further surgical intervention. Continue antibiotics as above. Duration of treatment depends on the clinical picture, but she will require a prolonged course of IV antibiotics. Wound care and activity per the ortho team. Qualifiers: Site of cellulitis: extremity Site of cellulitis of extremity: upper extremity Laterality: right Qualified Code(s): L03.113 - Cellulitis of right upper limb (4) Septic embolism Status: Suspected Location: Bilateral lungs. Causative organism: MRSA. Likely secondary to bacteremia. S. pneumo and Legionella UAT negative. RIP negative. Continue antibiotics as above. (5) Altered mental status Status: Resolved Likely secondary to drug use vs. narcotic pain medication given response to Narcan. CT head completed 10/02/17 was negative. Resolved. Qualifiers: Altered mental status type: unspecified Qualified Code(s): R41.82 - Altered mental status, unspecified (6) IVDU (intravenous drug user) Status: Acute Known Hep C positive. HIV nonreactive. (7) Hepatitis C Status: Acute Qualifiers: Viral hepatitis chronicity: chronic Hepatic coma status: without hepatic coma Qualified Code(s): B18.2 - Chronic viral hepatitis C (8) DVT (deep venous thrombosis) Status: Acute Location: Right brachial vein. Anticoagulation per the primary team. Continue supportive care. Qualifiers: DVT location: upper extremity Affected thrombotic vein of extremity: brachial Chronicity: acute Laterality: right Qualified Code(s): I82.621 - Acute embolism and thrombosis of deep veins of right upper extremity (9) Superficial venous thrombosis of arm Status: Acute Location: Right basilic vein. Continue supportive care. Management per the primary team. Qualifiers: Laterality: right Qualified Code(s): I82.611 - Acute embolism and thrombosis of superficial veins of right upper extremity (10) Hemoptysis Status: Acute Likely secondary to septic emboli. Pulmonology consulted and following. No indication for bronchscopy at this time. (11) Abscess of right upper extremity Status: Acute - Subjective Interval history: Patient seen and examined. No acute events noted overnight. Patient states overall her hand feels better, but still painful. Reports fever with chills overnight. Reports chest tightness and some shortness of breath, but states her cough is better and she has coughed once since last night. Denies nausea, vomiting, diarrhea, or constipation. Denies abdominal pain, urinary complaints or appetite changes. Reports chronic back pain at is at baseline. Denies oral thrush or other skin lesions. Infect Dis PN-Objective Data - Labs CBC & Chem 7: 10/08/17 04:00 10/08/17 04:00 Labs: Laboratory Results - last 24 hr 10/05/17 10/07/17 10/07/17 09:02 16:00 23:00 WBC RBC Hgb Hct MCV MCH MCHC RDW Plt Count MPV Seg Neutrophils % Band Neutrophils % Lymphocytes % Monocytes % Eosinophils % Neutrophils # Lymphocytes # Monocytes # Eosinophils # Reactive Lymphocytes Platelet Estimate Microcytosis APTT 42.1 H Sodium Potassium Chloride Carbon Dioxide BUN Creatinine Est GFR ( Amer) Est GFR (Non-Af Amer) BUN/Creatinine Ratio Glucose Calculated Osmolality Calcium Vancomycin Trough 18 H A. baumannii (PCR) Not Detected Yolie albicans (PCR) Not Detected C. glabrata (PCR) Not Detected C. krusei (PCR) Not Detected C. parapsilosis (PCR) Not Detected C. tropicalis (PCR) Not Detected Enterobacteriac sp PCR Not Detected E. cloacae complex PCR Not Detected Enterococcus sp PCR Not Detected E. coli (PCR) Not Detected H. influenzae (PCR) Not Detected Klebsiella oxytoca PCR Not Detected Klebsiella pneumoniae Not Detected List. monocytogenes PCR Not Detected N. meningitidis (PCR) Not Detected Proteus species (PCR) Not Detected Serratia marcescens PCR Not Detected Staphylococcus sp PCR DETECTED A Staph aureus (PCR) DETECTED A mecA-Methicil Res Gene DETECTED A Streptococcus sp PCR Not Detected Group A Strep DNA Not Detected Group B Strep (PCR) Not Detected Strep pneumoniae (PCR) Not Detected P. aeruginosa (PCR) Not Detected Obdulio/B-Vanco Res Genes N/A KPC (blaKPC) Detect PCR N/A 10/07/17 10/08/17 10/08/17 23:00 04:00 04:00 WBC 26.7 H RBC 3.54 L Hgb 9.5 L Hct 28.1 L MCV 79.4 L MCH 26.8 L MCHC 33.8 RDW 15.9 H Plt Count 339 MPV 9.3 L Seg Neutrophils % 78.0 Band Neutrophils % 6.0 H Lymphocytes % 8.0 Monocytes % 6.0 Eosinophils % 2.0 Neutrophils # 22.4 H Lymphocytes # 2.1 Monocytes # 1.6 H Eosinophils # 0.5 Reactive Lymphocytes Present A Platelet Estimate Normal Microcytosis Present A APTT 53.3 H Sodium 135 L Potassium 3.6 Chloride 106 Carbon Dioxide 24 BUN 5 L Creatinine 0.46 L Est GFR ( Amer) > 60 Est GFR (Non-Af Amer) > 60 BUN/Creatinine Ratio 11 Glucose 119 H Calculated Osmolality 278 L Calcium 7.5 L Vancomycin Trough A. baumannii (PCR) Yolie albicans (PCR) C. glabrata (PCR) C. krusei (PCR) C. parapsilosis (PCR) C. tropicalis (PCR) Enterobacteriac sp PCR E. cloacae complex PCR Enterococcus sp PCR E. coli (PCR) H. influenzae (PCR) Klebsiella oxytoca PCR Klebsiella pneumoniae List. monocytogenes PCR N. meningitidis (PCR) Proteus species (PCR) Serratia marcescens PCR Staphylococcus sp PCR Staph aureus (PCR) mecA-Methicil Res Gene Streptococcus sp PCR Group A Strep DNA Group B Strep (PCR) Strep pneumoniae (PCR) P. aeruginosa (PCR) Obdulio/B-Vanco Res Genes KPC (blaKPC) Detect PCR 10/08/17 06:30 WBC RBC Hgb Hct MCV MCH MCHC RDW Plt Count MPV Seg Neutrophils % Band Neutrophils % Lymphocytes % Monocytes % Eosinophils % Neutrophils # Lymphocytes # Monocytes # Eosinophils # Reactive Lymphocytes Platelet Estimate Microcytosis APTT 44.8 H Sodium Potassium Chloride Carbon Dioxide BUN Creatinine Est GFR ( Amer) Est GFR (Non-Af Amer) BUN/Creatinine Ratio Glucose Calculated Osmolality Calcium Vancomycin Trough A. baumannii (PCR) Yolie albicans (PCR) C. glabrata (PCR) C. krusei (PCR) C. parapsilosis (PCR) C. tropicalis (PCR) Enterobacteriac sp PCR E. cloacae complex PCR Enterococcus sp PCR E. coli (PCR) H. influenzae (PCR) Klebsiella oxytoca PCR Klebsiella pneumoniae List. monocytogenes PCR N. meningitidis (PCR) Proteus species (PCR) Serratia marcescens PCR Staphylococcus sp PCR Staph aureus (PCR) mecA-Methicil Res Gene Streptococcus sp PCR Group A Strep DNA Group B Strep (PCR) Strep pneumoniae (PCR) P. aeruginosa (PCR) Obdulio/B-Vanco Res Genes KPC (blaKPC) Detect PCR Cultures: Cultures 10/06/17 10:17 Blood Culture - Preliminary Peripheral Venipuncture No growth. 10/06/17 10:17 Blood Culture - Preliminary Peripheral Venipuncture No growth. 10/05/17 09:02 Blood Culture - Preliminary Peripheral Venipuncture Gram Positive Cocci 10/02/17 16:01 Legionella Antigen - Final Urine,Clean Catch Streptococcus pneumoniae Antigen (M - Final Serology 10/05/17 10/02/17 10/02/17 Range/Units 09:02 16:30 16:01 Urine Color Yellow (Yellow) Urine Clarity Clear (Clear) Urine pH 5.5 (5.0-8.0) pH Units Ur Specific [place] > 1.030 H (1.010-1.025) Urine Protein Trace (Neg-Trace) mg/dL Urine Glucose (UA) Normal (Normal) mg/dL Urine Ketones Negative (Negative) mg/dL Urine Blood Trace H (Negative) Urine Nitrite Negative (Negative) Urine Bilirubin Negative (Negative) Urine Urobilinogen Normal (Normal) mg/dL Ur Leukocyte Esterase Negative (Negative) Urine Microscopic RBC 0-3 (0-3) per hpf Urine Microscopic WBC 5-15 H (0-3) per hpf Ur Squamous Epith Cells Many H (None-Few) per lpf Urine Bacteria None Seen (None-Few) per hpf Hyaline Casts None Seen (None-Few) per lpf Ur Culture Indicated? NO (NO) A. baumannii (PCR) Not Detected (Not Detect) Chlamy pneumoniae PCR Not Detected (Not Detect) Adenovirus (PCR) Not Detected (Not Detect) B. pertussis DNA (PCR) Not Detected (Not Detect) B.parapertussis DNA PCR Not Detected (Not Detect) Yolie albicans (PCR) Not Detected (Not Detect) C. glabrata (PCR) Not Detected (Not Detect) C. krusei (PCR) Not Detected (Not Detect) C. parapsilosis (PCR) Not Detected (Not Detect) C. tropicalis (PCR) Not Detected (Not Detect) Coronavirus OC43 (PCR) Not Detected (Not Detect) Coronavirus HKU1 (PCR) Not Detected (Not Detect) Coronavirus 229E (PCR) Not Detected (Not Detect) Coronavirus NL63 (PCR) Not Detected (Not Detect) Enterobacteriac sp PCR Not Detected (Not Detect) E. cloacae complex PCR Not Detected (Not Detect) Enterococcus sp PCR Not Detected (Not Detect) E. coli (PCR) Not Detected (Not Detect) H. influenzae (PCR) Not Detected (Not Detect) HIV Ag/Ab Combo Qual (Nonreactive) Human Metapneumovir PCR Not Detected (Not Detect) Influenza A (H1) PCR Not Detected (Not Detect) Influ A (H1N1/09) PCR Not Detected (Not Detect) Influenza A (H3) PCR Not Detected (Not Detect) Influenza A Untype (PCR) Not Detected (Not Detect) Influenza Type B (PCR) Not Detected (Not Detect) Klebsiella oxytoca PCR Not Detected (Not Detect) Klebsiella pneumoniae Not Detected (Not Detect) List. monocytogenes PCR Not Detected (Not Detect) M.pneumoniae DNA (PCR) Not Detected (Not Detect) N. meningitidis (PCR) Not Detected (Not Detect) Parainfluenza 1 (PCR) Not Detected (Not Detect) Parainfluenza 2 (PCR) Not Detected (Not Detect) Parainfluenza 3 (PCR) Not Detected (Not Detect) Parainfluenza 4 (PCR) Not Detected (Not Detect) Proteus species (PCR) Not Detected (Not Detect) RSV (PCR) Not Detected (Not Detect) Entero/Rhino (PCR) Not Detected (Not Detect) Serratia marcescens PCR Not Detected (Not Detect) Staphylococcus sp PCR DETECTED A (Not Detect) Staph aureus (PCR) DETECTED A (Not Detect) mecA-Methicil Res Gene DETECTED A (Not Detect) Streptococcus sp PCR Not Detected (Not Detect) Group A Strep DNA Not Detected (Not Detect) Group B Strep (PCR) Not Detected (Not Detect) Strep pneumoniae (PCR) Not Detected (Not Detect) P. aeruginosa (PCR) Not Detected (Not Detect) Obdulio/B-Vanco Res Genes N/A (Not Detect) KPC (blaKPC) Detect PCR N/A (Not Detect) 10/02/17 Range/Units 14:22 Urine Color (Yellow) Urine Clarity (Clear) Urine pH (5.0-8.0) pH Units Ur Specific [place] (1.010-1.025) Urine Protein (Neg-Trace) mg/dL Urine Glucose (UA) (Normal) mg/dL Urine Ketones (Negative) mg/dL Urine Blood (Negative) Urine Nitrite (Negative) Urine Bilirubin (Negative) Urine Urobilinogen (Normal) mg/dL Ur Leukocyte Esterase (Negative) Urine Microscopic RBC (0-3) per hpf Urine Microscopic WBC (0-3) per hpf Ur Squamous Epith Cells (None-Few) per lpf Urine Bacteria (None-Few) per hpf Hyaline Casts (None-Few) per lpf Ur Culture Indicated? (NO) A. baumannii (PCR) (Not Detect) Chlamy pneumoniae PCR (Not Detect) Adenovirus (PCR) (Not Detect) B. pertussis DNA (PCR) (Not Detect) B.parapertussis DNA PCR (Not Detect) Yolie albicans (PCR) (Not Detect) C. glabrata (PCR) (Not Detect) C. krusei (PCR) (Not Detect) C. parapsilosis (PCR) (Not Detect) C. tropicalis (PCR) (Not Detect) Coronavirus OC43 (PCR) (Not Detect) Coronavirus HKU1 (PCR) (Not Detect) Coronavirus 229E (PCR) (Not Detect) Coronavirus NL63 (PCR) (Not Detect) Enterobacteriac sp PCR (Not Detect) E. cloacae complex PCR (Not Detect) Enterococcus sp PCR (Not Detect) E. coli (PCR) (Not Detect) H. influenzae (PCR) (Not Detect) HIV Ag/Ab Combo Qual Nonreactive (Nonreactive) Human Metapneumovir PCR (Not Detect) Influenza A (H1) PCR (Not Detect) Influ A (H1N1/09) PCR (Not Detect) Influenza A (H3) PCR (Not Detect) Influenza A Untype (PCR) (Not Detect) Influenza Type B (PCR) (Not Detect) Klebsiella oxytoca PCR (Not Detect) Klebsiella pneumoniae (Not Detect) List. monocytogenes PCR (Not Detect) M.pneumoniae DNA (PCR) (Not Detect) N. meningitidis (PCR) (Not Detect) Parainfluenza 1 (PCR) (Not Detect) Parainfluenza 2 (PCR) (Not Detect) Parainfluenza 3 (PCR) (Not Detect) Parainfluenza 4 (PCR) (Not Detect) Proteus species (PCR) (Not Detect) RSV (PCR) (Not Detect) Entero/Rhino (PCR) (Not Detect) Serratia marcescens PCR (Not Detect) Staphylococcus sp PCR (Not Detect) Staph aureus (PCR) (Not Detect) mecA-Methicil Res Gene (Not Detect) Streptococcus sp PCR (Not Detect) Group A Strep DNA (Not Detect) Group B Strep (PCR) (Not Detect) Strep pneumoniae (PCR) (Not Detect) P. aeruginosa (PCR) (Not Detect) Obdulio/B-Vanco Res Genes (Not Detect) KPC (blaKPC) Detect PCR (Not Detect) - Impressions Impressions Forearm MRI 10/07/17 16:38 IMPRESSION: 1. Extensive subcutaneous edema throughout the forearm and hand compatible with cellulitis. 2. Large multilocular complex fluid collection within the mid and proximal forearm flexor musculature and overlying subcutaneous fat measuring approximately 8.8 x 4.4 x 2.7 cm compatible with an abscess. Extensive intramuscular edema compatible with myositis. 3. Smaller multilocular fluid collections in the hand including within the thenar musculature, soft tissues dorsal to the 2nd intermetacarpal space, and 4th intermetacarpal musculature. 4. Moderate 2nd through 5th extensor tenosynovitis in the hand. 5. No osteomyelitis or joint effusion. D/ / Cheo Hogan MD / Cheo Hogan MD Interpreting Provider: Cheo Hogan MD Hand MRI 10/07/17 16:38 IMPRESSION: 1. Extensive subcutaneous edema throughout the forearm and hand compatible with cellulitis. 2. Large multilocular complex fluid collection within the mid and proximal forearm flexor musculature and overlying subcutaneous fat measuring approximately 8.8 x 4.4 x 2.7 cm compatible with an abscess. Extensive intramuscular edema compatible with myositis. 3. Smaller multilocular fluid collections in the hand including within the thenar musculature, soft tissues dorsal to the 2nd intermetacarpal space, and 4th intermetacarpal musculature. 4. Moderate 2nd through 5th extensor tenosynovitis in the hand. 5. No osteomyelitis or joint effusion. D/ / Cheo Hogan MD / Cheo Hogan MD Interpreting Provider: Cheo Hogan MD Exam - Constitutional Vitals: Temp Pulse Resp BP Pulse Ox 98.5 F 132 32 163/79 94 10/08/17 07:47 10/08/17 07:47 10/08/17 07:47 10/08/17 07:47 10/08/17 07:47 General appearance: average body habitus, cooperative, no acute distress - Head Head exam: Present: atraumatic, normal inspection, normocephalic - Eye Eye exam: Present: EOMI, normal appearance, PERRL Pupils: Present: normal accommodation - ENT ENT exam: Present: mucous membranes moist - Neck Neck exam: Present: normal inspection - Respiratory Respiratory exam: Present: rhonchi (Throughout). Absent: rales, respiratory distress, wheezes - Cardiovascular Cardiovascular exam: Present: +S1, +S2, tachycardia. Absent: irregular rhythm - GI/Abdominal GI/Abdominal exam: Present: normal bowel sounds, soft. Absent: distended, tenderness - Extremities Exam Extremities exam: Present: joint swelling (Right wrist), tenderness (Right hand , wrist, forearm). Absent: pedal edema Additional comments: Right hand, wrist, and forearm remain erythematous and edematous with small bullous lesions noted to the dorsal aspect of the right hand. ROM improved. - Back Exam Back exam: Absent: vertebral tenderness - Neurological Exam Neurological exam: Present: alert, oriented X3, no focal deficits - Psychiatric Psychiatric exam: Present: anxious, normal affect - Skin Skin exam: Present: dry, intact, normal color, warm Consult Discharge Plan - Plan Instructions: Cellulitis (DC), Viral Hepatitis C (DC), Viral Hepatitis C (GEN) , Sepsis (DC) Referrals: NONE,PCP [Primary Care Provider] -
== END 2017-10-08 11:24 | disposition critical access hospital (66) | DRG 720 ==
LOC: EMEROO 08:12 → 3BNU 08:12 → 2NENU 10-06 15:45
PROVIDERS: ADMIT General Practice; ATTEND General Practice

== ENCOUNTER 2019-07-20 01:16 | Inpatient (IN) ==
[2019-07-20] MEDS ORDERED: Vancomycin (wt based) 1,000 MG VIAL IVPB STA (02:06)
[2019-07-20] MEDS ORDERED: Isovue-370 500 ML BOTTLE IVP ONE (02:06)
[2019-07-20] MEDS ORDERED: Ketorolac 15 MG/ML VIAL IVP ONE (02:07)
[2019-07-20] MEDS ORDERED: Ketamine *HR* 15 MG in 0.9 % Sodium Chloride 100 ML IVPB ONE (02:07)
[2019-07-20 02:51] LABS: Basophils % 0.3 %; Eosinophils # 0.1 K/mcL (0.0-0.6); Eosinophils % 0.9 %; Hematocrit 35.6 % (35.3-44.9); Hemoglobin 11.6 g/dL (11.5-15.4); Immature Granulocytes % 0.3 % (0-4); Lymphocytes # 2.7 K/mcL (0.6-4.6); Mean Corpuscular HGB Conc 32.6 g/dL (31.6-35.5); Mean Corpuscular Hemoglobin 28.4 pg (28.0-33.3); Mean Corpuscular Volume 87.3 fL (83.0-100.0); Mean Platelet Volume 9.4 fL (9.4-12.4); Monocytes # 1.2 K/mcL (0.0-1.3); Monocytes % 11.6 %; Platelet Count 276 K/mcL (140-400); Red Blood Count 4.08 M/mcL (3.82-4.97); Segmented Neutrophils % 59.9 %
[2019-07-20 03:14] LABS: BUN/Creatinine Ratio 16 (6-26); Blood Urea Nitrogen 10 mg/dL (6-20); Calcium 8.6 mg/dL (8.6-10.3); Carbon Dioxide 25 mEq/L (23-29); Chloride 103 mEq/L (98-107); Glucose 115 mg/dL (70-105); Osmolality,Calculated 278 (280-300); Potassium 3.5 mEq/L (3.5-5.1); Sodium 134 mEq/L (136-145); eGFR For African Americans > 60 (> 60); eGFR For Non-African Americans > 60 (> 60)
[2019-07-20] MEDS ORDERED: 0.9 % Sodium Chloride 1,000 ML IVC SCH (05:00)
[2019-07-20 05:31] LABS: Bilirubin,Urine Negative (Negative); Blood,Urine Negative (Negative); Clarity,Urine Clear (Clear); Color,Urine Yellow (Yellow); Glucose,Urine (UA) Normal (Normal); Ketones,Urine Negative (Negative); Leukocyte Esterase,Urine Small (Negative); Nitrite,Urine Negative (Negative); Protein,Urine Trace mg/dL (Neg-Trace); Specific Gravity,Urine 1.027 (1.010-1.025); Urobilinogen,Urine Normal (Normal)
[2019-07-20 05:33] LABS: Bacteria,Urine None Seen per hpf (None-Few); Hyaline Casts,Urine None Seen per lpf (None-Few); RBC,Urine 0-3 per hpf (0-3); Squamous Epithelial Cell,Urine Many per lpf (None-Few)
[2019-07-20 05:35] LABS: Amphetamine Screen,Urine Positive ng/mL (Cutoff=1000); Barbiturate Screen,Urine Negative ng/mL (Cutoff=200); Benzodiazepines Screen,Urine Negative ng/mL (Cutoff=200); Cannabinoid Screen,Urine Positive ng/mL (Cutoff = 50); Cocaine Screen,Urine Negative ng/mL (Cutoff= 300); Opiate Screen,Urine Positive ng/mL (Cutoff=300); Phencyclidine Screen,Urine Negative ng/mL (Cutoff=25)
[2019-07-20] MEDS ORDERED: *HR* Heparin 5,000 UNIT/ML VIAL SQ SCH (06:00)
[2019-07-20] MEDS: Naloxone 0.4 MG/ML INJ IVP PRN ×3 (06:08→06:30)
[2019-07-20] MEDS ORDERED: Ammonia Inhalant AMPUL ONE (06:21)
[2019-07-20] MEDS ORDERED: *HR* LORazepam 2 MG/ML VIAL IVP PRN ×3 (06:28)
[2019-07-20] MEDS: Piperacillin/Tazobactam 3.375 GM in 0.9 % Sodium Chloride Mini Bag 100 ML IVPB SCH ×3 (09:45→23:53)
[2019-07-20 10:03] LABS: Ethanol < 10 mg/dL (Less than 10)
[2019-07-20] MEDS ORDERED: *HR* HYDROcodone/Acet 7.5/325 mg TABLET PO PRN ×2 (12:09→13:57)
[2019-07-20] MEDS ORDERED: Acetaminophen 325 MG TABLET PO PRN ×2 (12:09→20:01)
[2019-07-20] MEDS ORDERED: *HR* HYDROcodone/Acet 5/325 mg TABLET PO PRN ×3 (12:09→20:01)
[2019-07-20] MEDS ORDERED: Nicotine 21 MG PATCH.TD24 TD SCH (13:30)
[2019-07-20] MEDS ORDERED: *HR* Midazolam HCl 2 MG/2 ML VIAL ONE (16:36)
[2019-07-20] MEDS ORDERED: *HR* FentaNYL (PF) 100 MCG/2 ML VIAL ONE (16:36)
[2019-07-20] MEDS ORDERED: *HR* Propofol 200 MG/20 ML VIAL IVP ONE (16:37)
[2019-07-20] MEDS ORDERED: Ondansetron 4 MG/2 ML VIAL ONE (16:38)
[2019-07-20] MEDS ORDERED: Lidocaine -MPF 2% 2 ML VIAL ONE (16:38)
[2019-07-20] MEDS ORDERED: Dexamethasone 4 MG/ML VIAL ONE (16:38)
[2019-07-20] MEDS ORDERED: Bupivacaine/EPI 1:200k 0.5%PF 10 ML VIAL ONE (17:15)
[2019-07-20] MEDS ORDERED: Prenatal Vit/FA 1 EACH TABLET PO SCH (17:30)
[2019-07-20] MEDS ORDERED: Ondansetron 4 MG/2 ML VIAL IVP ONE ×2 (17:50→20:01)
[2019-07-20] MEDS ORDERED: Lidocaine HCL 4 ML Topical Solution (Laryng-O-Jet Kit Sterile Pak) TP ONE (18:01)
[2019-07-20 18:10] LABS: Amphetamine Screen,Urine Positive ng/mL (Cutoff=1000); Barbiturate Screen,Urine Negative ng/mL (Cutoff=200); Benzodiazepines Screen,Urine Negative ng/mL (Cutoff=200); Cannabinoid Screen,Urine Positive ng/mL (Cutoff = 50); Cocaine Screen,Urine Negative ng/mL (Cutoff= 300); Opiate Screen,Urine Positive ng/mL (Cutoff=300); Phencyclidine Screen,Urine Negative ng/mL (Cutoff=25)
[2019-07-20] MEDS: *HR* HYDROmorphone PF 0.5 MG/0.5 ML SYRINGE IVP PRN ×4 (19:00→19:23)
[2019-07-20] MEDS ORDERED: Naloxone 0.4 MG/ML INJ IVP PRN (20:01)
[2019-07-20] MEDS: *HR* LORazepam 1 MG TABLET PO PRN (21:13)
[2019-07-20] MEDS: *HR* HYDROcodone/Acet 7.5/325 mg TABLET PO PRN (21:22)
[2019-07-21] MEDS: *HR* HYDROcodone/Acet 7.5/325 mg TABLET PO PRN ×4 (04:10→23:32)
[2019-07-21 05:48] LABS: Hematocrit 39.6 % (35.3-44.9); Hemoglobin 12.5 g/dL (11.5-15.4); Mean Corpuscular HGB Conc 31.6 g/dL (31.6-35.5); Mean Corpuscular Hemoglobin 28.1 pg (28.0-33.3); Mean Platelet Volume 10.1 fL (9.4-12.4); Platelet Count 286 K/mcL (140-400); Red Blood Count 4.45 M/mcL (3.82-4.97); Red Cell Distribution Width 12.9 % (11.5-14.5); White Blood Count 8.2 K/mcL (4.3-11.1)
[2019-07-21 06:10] LABS: BUN/Creatinine Ratio 14 (6-26); Blood Urea Nitrogen 9 mg/dL (6-20); Calcium 8.5 mg/dL (8.6-10.3); Carbon Dioxide 22 mEq/L (23-29); Chloride 106 mEq/L (98-107); Glucose 150 mg/dL (70-105); Osmolality,Calculated 282 (280-300); Sodium 135 mEq/L (136-145); eGFR For African Americans > 60 (> 60); eGFR For Non-African Americans > 60 (> 60)
[2019-07-21] MEDS: Piperacillin/Tazobactam 3.375 GM in 0.9 % Sodium Chloride Mini Bag 100 ML IVPB SCH ×3 (08:21→23:26)
[2019-07-21] MEDS: Nicotine 21 MG PATCH.TD24 TD SCH (08:21)
[2019-07-21] MEDS ORDERED: Prenatal Vit/FA 1 EACH TABLET PO SCH (09:00)
[2019-07-21] MEDS ORDERED: *HR* OxyCODONE/APAP 5/325 TABLET PO ONE (17:07)
[2019-07-21] MEDS: *HR* LORazepam 1 MG TABLET PO PRN (19:42)
[2019-07-22 02:37] LABS: Hematocrit 35.2 % (35.3-44.9); Hemoglobin 11.4 g/dL (11.5-15.4); Mean Corpuscular HGB Conc 32.4 g/dL (31.6-35.5); Mean Corpuscular Hemoglobin 28.8 pg (28.0-33.3); Mean Corpuscular Volume 88.9 fL (83.0-100.0); Mean Platelet Volume 9.5 fL (9.4-12.4); Platelet Count 321 K/mcL (140-400); Red Blood Count 3.96 M/mcL (3.82-4.97); White Blood Count 9.2 K/mcL (4.3-11.1)
[2019-07-22 03:05] LABS: BUN/Creatinine Ratio 13 (6-26); Blood Urea Nitrogen 9 mg/dL (6-20); Calcium 8.2 mg/dL (8.6-10.3); Carbon Dioxide 23 mEq/L (23-29); Chloride 109 mEq/L (98-107); Glucose 128 mg/dL (70-105); Osmolality,Calculated 280 (280-300); Potassium 3.5 mEq/L (3.5-5.1); Sodium 135 mEq/L (136-145); eGFR For African Americans > 60 (> 60); eGFR For Non-African Americans > 60 (> 60)
[2019-07-22] MEDS: *HR* HYDROcodone/Acet 7.5/325 mg TABLET PO PRN (05:33)
[2019-07-22] MEDS: Piperacillin/Tazobactam 3.375 GM in 0.9 % Sodium Chloride Mini Bag 100 ML IVPB SCH (07:47)
[2019-07-22] MEDS: Nicotine 21 MG PATCH.TD24 TD SCH (07:47)
[2019-07-22 11:18] VITALS: BP 134/95
[2019-07-22] MEDS ORDERED: Aminoglycoside Consult 1 EACH MC ONE (14:44)
== END 2019-07-22 14:45 | disposition home or self-care (01) | DRG 364 ==
LOC: EMEROOARM 01:16 → 3NENU 01:16 → SUATTDRO 04:56 → 3NENU 05:38
PROVIDERS: ADMIT Family Medicine; ATTEND Internal Medicine